=== PATIENT | male | born 1980 | race Two or more races ===

== ENCOUNTER 2016-12-11 13:45 | Inpatient (IN) | payer OTHER ==
[2016-12-11 14:11] VITALS: BMI 25.4
--- NOTE | 2016-12-11 15:00 | HP ---
COWS - Scale Resting Pulse: 0= ND 80 or Below Sweatin=Flushed/Facial Moisture Restless Observation: 3= Extraneous Movement Pupil Size: 1= Pupils >than Normal Bone or Joint Aches: 2= Severe Diffuse Aches Runny Nose/ Eye Tearin= Nasal Congestion GI Upset > 30mins: 2= Nausea/Diarrhea Tremor Observation: 2= Slight Tremor Visible Yawning Observation: 1= 1-2x During Session Anxiety or Irritability: 2=Irritable/Anxious Goose Flesh Skin: 0=Smooth Skin COWS Score: 16 CIWA Score - CIWA Score Nausea/Vomitin Muscle Tremors: 3 Anxiety: 3 Agitation: 3 Paroxysmal Sweats: 3 Orientation: 0-Oriented Tacttile Disturbances: 3-Moderate Itch/Numb/Burn Auditory Disturbances: 0-None Visual Disturbances: 0-None Headache: 0-None Present CIWA-Ar Total Score: 18 Admission ROS BHS - HPI Chief Complaint: I need to stop using drugs and alcohol - i need help. Allergies/Adverse Reactions: Allergies Allergy/AdvReac Type Severity Reaction Status Date / Time No Known Allergies Allergy Verified 02/19/13 14:04 History of Present Illness: 36 y/o m pt with h/o heroin and alcohol dep seeking detox. Exam Limitations: No Limitations - Ebola screening Have you been sick,other than usual withdrawal symptoms: No - Review of Systems Constitutional: Malaise, Night Sweats, Changes in sleep EENT: reports: Blurred Vision, Tearing, Nose Congestion, Dental Problems Respiratory: reports: No Symptoms reported Cardiac: reports: No Symptoms Reported GI: reports: Diarrhea, Abdominal cramping : reports: No Symptoms Reported Musculoskeletal: reports: Joint Pain, Muscle Pain Integumentary: reports: Erythema (rt arm) Neuro: reports: Headache Endocrine: reports: No Symptoms Reported Hematology: reports: No Symptoms Reported Psychiatric: reports: Depressed Other Systems: Reviewed and Negative Patient History - Patient Medical History Hx Anemia: No Hx Asthma: No Hx Chronic Obstructive Pulmonary Disease (COPD): No Hx Cancer: No Hx Cardiac Disorders: No Hx Congestive Heart Failure: No Hx Hypertension: No Hx Hypercholesterolemia: No Hx Pacemaker: No HX Cerebrovascular Accident: No Hx Seizures: No Hx Dementia: No Hx Diabetes: No Hx Gastrointestinal Disorders: No Hx Liver Disease: No Hx Genitourinary Disorders: No Hx Sexually Transmitted Disorders: No Hx Renal Disease (ESRD): No Hx Thyroid Disease: No Hx Human Immunodeficiency Virus (HIV): No (negative 1 yr ago) Hx Hepatitis C: Yes Hx Depression: Yes Hx Suicide Attempt: No Hx Bipolar Disorder: No Hx Schizophrenia: No - Patient Surgical History Past Surgical History: No Hx Neurologic Surgery: No Hx Cataract Extraction: No Hx Cardiac Surgery: No Hx Lung Surgery: No Hx Breast Surgery: No Hx Breast Biopsy: No Hx Abdominal Surgery: No Hx Appendectomy: No Hx Cholecystectomy: No Hx Genitourinary Surgery: No Hx Section: No Hx Orthopedic Surgery: No Anesthesia Reaction: No - PPD History Date: 02/21/15 PPD to be Administered?: Yes - Reproductive History Patient is a Female of Child Bearing Age (11 -55 yrs old): No - Smoking Cessation Smoking history: Current every day smoker Have you smoked in the past 12 months: Yes Aproximately how many cigarettes per day: 20 Cigars Per Day: 0 Hx Chewing Tobacco Use: No Initiated information on smoking cessation: Yes 'Breaking Loose' booklet given: 12/11/16 - Substance & Tx. History Hx Alcohol Use: Yes Hx Substance Use: Yes Substance Use Type: Alcohol, Heroin Hx Substance Use Treatment: Yes - Substances Abused Alcohol Route: Oral Frequency: Daily Amount used: henessey 1pt/d Age of first use: 15 Date of Last Use: 12/10/16 Heroin Route: Injection Frequency: Daily Amount used: 10 bags/d Age of first use: 26 Date of Last Use: 12/10/16 Cocaine Route: Inhalation Frequency: Daily Amount used: $20. Age of first use: 26 Date of Last Use: 12/10/16 Family Disease History - Family Disease History Family History: Denies Admission Physical Exam [facility] - Vital Signs Vital Signs: Vital Signs - 24 hr 12/11/16 14:08 Temperature 95.9 F L Pulse Rate 68 Respiratory 18 Rate Blood Pressure 128/74 36 y/o m pt wn/wd appearing uncomfortable , restless , but cooperating with exam. - Physical General Appearance: Yes: Disheveled HEENTM: Yes: EOMI, Hearing grossly Normal, Normocephalic, Normal Voice, TERE Respiratory: Yes: Wheezing (bree) Neck: Yes: Supple, Trachea in good position Breast: Yes: Within Normal Limits Cardiology: Yes: Regular Rhythm, Regular Rate, S1, S2 Abdominal: Yes: Non Tender, Flat, Soft, Increased Bowel Sounds Genitourinary: Yes: Within Normal Limits Back: Yes: Decreased Range of Motion Musculoskeletal: Yes: Joint Stiffness, Muscle Pain, Other (left arm decrease rom on extension at elbow , + erythema medial at bicep.) Extremities: Yes: Tremors, Other (no palpable axillary nodes) Neurological: Yes: sap bpc developer II-XII NML intact, Fully Oriented, Alert, Motor Strength 5/5, Normal Response Integumentary: Yes: Moist, Track Mckeon (bree forearms) Lymphatic: Yes: Within Normal Limits - Diagnostic (1) Alcohol dependence Current Visit: Yes Status: Chronic (2) Cocaine dependence Current Visit: Yes Status: Chronic (3) Opioid dependence Current Visit: Yes Status: Chronic (4) depression Current Visit: Yes Status: Chronic (5) Nicotine dependence Current Visit: Yes Status: Chronic Qualifiers: Nicotine product type: cigarettes Substance use status: uncomplicated Qualified Code(s): F17.210 - Nicotine dependence, cigarettes, uncomplicated (6) Cellulitis of left arm Current Visit: Yes Status: Acute Cleared for Admission [facility] - Detox or Rehab [facility] Level of Care: Medically Managed Detox Regimen/Protocol: Methadone/Librium [facility] Breath Alcohol Content Breath Alcohol Content: 0 Urine Drug Screen - Results Drug Screen Negative: No Urine Drug Screen Results: THC-Marijuana, LAZARO-Cocaine, OPI-Opiates
[2016-12-11] MEDS ORDERED: P-EPHED 60MG/TRIPROLIDI 2.5MG TABLET PO PRN (15:15)
[2016-12-11] MEDS ORDERED: MENTHOL/PHENOL 1 EACH UD MM PRN (15:15)
[2016-12-11] MEDS ORDERED: NICOTINE POLACRILEX 4 MG GUM BC PRN (15:15)
[2016-12-11] MEDS ORDERED: LOPERAMIDE HCL 2 MG CAPSULE PO PRN (15:15)
[2016-12-11] MEDS ORDERED: MAGNESIUM CITRATE 300 ML BOTTLE PO PRN (15:15)
[2016-12-11] MEDS ORDERED: MAGNESIUM HYDROX 2400MG/30ML ORAL SUSPENSION 30 ML CUP PO PRN (15:15)
[2016-12-11] MEDS ORDERED: MAG HYDROX/AL HYDROX/SIMETH 30 ML UNIT-DOSE CUP PO PRN (15:15)
[2016-12-11] MEDS ORDERED: IBUPROFEN 400 MG TABLET (FP) PO PRN (15:15)
[2016-12-11] MEDS ORDERED: guaiFENesin/D-METHORPHAN HB 10 ML UNIT-DOSE CUPS PO PRN (15:15)
[2016-12-11] MEDS ORDERED: chlordiazePOXIDE HCL 25 MG CAPSULE PO PRN (15:15)
[2016-12-11] MEDS ORDERED: diphenhydrAMINE HCL 50 MG CAPSULE PO PRN (15:15)
[2016-12-11] MEDS ORDERED: ACETAMINOPHEN 325 MG TABLET (FP) PO PRN (15:15)
[2016-12-11] MEDS ORDERED: hydrOXYzine PAMOATE 25 MG CAPSULE (FP) PO PRN (15:15)
[2016-12-11] MEDS ORDERED: SULFAMETHOXAZOLE/TRIMETHOPRIM 800MG/160MG D.S. TABLET PO ONE (17:30)
[2016-12-11] MEDS ORDERED: METHADONE HCL 10 MG TABLET (FOR DETOX USE ONLY) PO ONE ×2 (17:30→23:00)
[2016-12-11] MEDS: chlordiazePOXIDE HCL 25 MG CAPSULE PO SCH ×2 (18:07→22:44)
[2016-12-11] MEDS: SULFAMETHOXAZOLE/TRIMETHOPRIM 800MG/160MG D.S. TABLET PO SCH (22:44)
[2016-12-11] MEDS: THIAMINE HCL 100 MG TABLET (FP) PO SCH (22:44)
[2016-12-12] MEDS: chlordiazePOXIDE HCL 25 MG CAPSULE PO SCH ×4 (06:30→22:14)
--- NOTE | 2016-12-12 08:34 | CONSULT ---
[facility] Psychiatric Consult - Data Date of interview: 12/12/16 Admission source: [facility] Identifying data: This is 36 years old male with no psychiatric hospitalization history ihtoxicated with [id number], Cocaine, Opioids and Nicotine Substance Abuse History: Smoking history: Current every day smoker. Have you smoked in the past 12 months: Yes. Aproximately how many cigarettes per day: 20. Cigars Per Day: 0. Hx Chewing Tobacco Use: No. Initiated information on smoking cessation: Yes. 'Breaking Loose' booklet given: 12/11/16. - Substance & Tx. History. Hx Alcohol Use: Yes. Hx Substance Use: Yes. Substance Use Type : Alcohol, Heroin. Hx Substance Use Treatment: Yes. - Substances Abused. Alcohol. Route: Oral. Frequency: Daily. Amount used: henessey 1pt/d. Age of first use: 15. Date of Last Use: 12/10/16. Heroin. Route: Injection. Frequency: Daily. Amount used: 10 bags/d. Age of first use: 26. Date of Last Use: 12/10/16. Cocaine. Route: Inhalation. Frequency: Daily. Amount used : $20. Age of first use: 26. Date of Last Use: 12/10/16 Medical History: History of Cellulitis, Weight loss history Psychiatric History: Patient reports history of depression, reports taking prior to admission: Trazodone 100mg po qhs. Wellbutrin 100mg poqd Physical/Sexual Abuse/Trauma History: Denies Additional Comment: Trazodone 100mg po qhs. Wellbutrin 100mg poqd Mental Status Exam - Mental Status Exam Alert and Oriented to: Person Cognitive Function: Fair Patient Appearance: Unkempt Mood: Sad Affect: Flat Patient Behavior: Sedated Speech Pattern: Delayed Voice Loudness: Mildly Soft/Quiet Thought Process: Goal Oriented Thought Disorder: Being Controlled Hallucinations: Denies Suicidal Ideation: Denies Homicidal Ideation: Denies Insight/Judgement: Fair Sleep: Difficulty falling asleep Appetite: Weight loss Muscle strength/Tone: Mild Hypotonicity Gait/Station: Shuffling Additional Comments: Trazodone 100mg po qhs. Wellbutrin 100mg poqd Psychiatric Findings - Problem List ([place] 1, 2,3) (1) Alcohol dependence Current Visit: Yes Status: Chronic (2) Cocaine dependence Current Visit: Yes Status: Chronic (3) Nicotine dependence Current Visit: Yes Status: Chronic Qualifiers: Nicotine product type: cigarettes Substance use status: uncomplicated Qualified Code(s): F17.210 - Nicotine dependence, cigarettes, uncomplicated (4) Opioid dependence Current Visit: Yes Status: Chronic (5) Drug-induced mood disorder Current Visit: Yes Status: Acute - Initial Treatment Plan Initial Treatment Plan: Trazodone 100mg po qhs. Wellbutrin 100mg poqd
[2016-12-12] MEDS ORDERED: METHADONE HCL 10 MG TABLET (FOR DETOX USE ONLY) PO SCH (10:00)
--- NOTE | 2016-12-12 10:38 | PN ---
[facility] CIWA - CIWA Score Nausea/Vomitin Muscle Tremors: 2 Anxiety: 3 Agitation: 3 Paroxysmal Sweats: 3 Orientation: 0-Oriented Tacttile Disturbances: 2-Mild Itch/Numbness/Burn Auditory Disturbances: 0-None Visual Disturbances: 0-None Headache: 0-None Present CIWA-Ar Total Score: 15 BHS COWS - Scale Resting Pulse: 1= NV 81-100 Sweatin=Flushed/Facial Moisture Restless Observation: 1= Difficult to Sit Still Pupil Size: 1= Pupils >than Normal Bone or Joint Aches: 2= Severe Diffuse Aches Runny Nose/ Eye Tearin= Nasal Congestion GI Upset > 30mins: 1= Stomach Cramp Tremor Observation of Outstretched Hands: 1= Tremor [place], Not Seen Yawning Observation: 0= None Anxiety or Irritability: 2=Irritable/Anxious Goose Flesh Skin: 0=Smooth Skin COWS Score: 12 BHS Progress Note (SOAP) Subjective: interrupted sleep, sweats , irritable -states left arm infection better , not as tense as yesterday , no fever Objective: 12/12/16 10:35 Vital Signs Temperature 99.0 F 12/12/16 06:52 Pulse Rate 83 12/12/16 06:52 Respiratory Rate 18 12/12/16 06:52 Blood Pressure 114/64 12/12/16 06:52 O2 Sat by Pulse Oximetry (%) pending labs pt aox3 in nad lying in bed left arm better rom .erythema Assessment: 12/12/16 10:36 withdrawal sx's cellulitis left arm Plan: cont detox increase fluids cont bactrim ds bid warm compresses motrin prn
[2016-12-12 10:45] LABS: MCH 28.7 pg (25.7-33.7); MCHC 33.5 g/dl (32.0-35.9); MEAN CELL VOLUME 85.9 fl (80-96); MEAN PLT VOLUME 8.8 fl (7.5-11.1); PLATELET COUNT 301 K/MM3 (134-434); RDW 12.4 % (11.9-15.9); WHITE BLOOD COUNT 15.3 K/mm3 (4.0-10.0)
[2016-12-12 10:56] LABS: ALBUMIN 3.8 g/dl (3.4-5.0); ANION GAP 11 (8-16); CALCIUM 9.1 mg/dL (8.5-10.1); CO2 25 mmol/L (21-32); GLUCOSE,RANDOM 91 mg/dL (74-106)
[2016-12-12 11:01] LABS: ALK PHOS 75 U/L (45-117); COCKROFT - GAULT 133.76; CREATININE 0.9 mg/dL (0.7-1.3); SGOT/AST 33 U/L (15-37); SGPT/ALT 65 U/L (12-78); TOT PROT 7.7 g/dl (6.4-8.2)
[2016-12-12] MEDS: PRENATAL VITAMINS W/ FOLIC ACID TABLET (FP) PO SCH (11:16)
[2016-12-12] MEDS: SULFAMETHOXAZOLE/TRIMETHOPRIM 800MG/160MG D.S. TABLET PO SCH ×2 (11:16→22:13)
[2016-12-12] MEDS: NICOTINE 21 MG/24 HOURS TOPICAL PATCH TD SCH (11:16)
[2016-12-12] MEDS: buPROPion HCL 100 MG TABLET PO SCH (11:17)
--- NOTE | 2016-12-12 12:33 | EKG ---
Test Reason : Blood Pressure : / mmHG Vent. Rate : 052 BPM Atrial Rate : 052 BPM P-R Int : 160 ms QRS Dur : 098 ms QT Int : 398 ms P-R-T Axes : 039 083 051 degrees QTc Int : 370 ms SINUS BRADYCARDIA OTHERWISE NORMAL ECG NO PREVIOUS ECGS AVAILABLE Confirmed by NELLIE DELONG MD ([id number]) on 12/12/2016 12:32:24 PM Referred By: Confirmed By:NELLIE DELONG MD
[2016-12-12] MEDS: traZODone HCL 100 MG TABLET (FP) PO SCH (22:14)
[2016-12-12] MEDS: THIAMINE HCL 100 MG TABLET (FP) PO SCH (22:14)
[2016-12-13] MEDS: chlordiazePOXIDE HCL 25 MG CAPSULE PO SCH ×2 (08:22→10:32)
[2016-12-13] MEDS: PRENATAL VITAMINS W/ FOLIC ACID TABLET (FP) PO SCH (10:31)
[2016-12-13] MEDS: SULFAMETHOXAZOLE/TRIMETHOPRIM 800MG/160MG D.S. TABLET PO SCH ×2 (10:32→22:55)
[2016-12-13] MEDS: METHADONE HCL 5 MG TABLET (FOR DETOX USE ONLY) PO SCH (10:32)
[2016-12-13] MEDS: buPROPion HCL 100 MG TABLET PO SCH (10:32)
[2016-12-13] MEDS: NICOTINE 21 MG/24 HOURS TOPICAL PATCH TD SCH (10:33)
--- NOTE | 2016-12-13 12:37 | PN ---
[facility] CIWA - CIWA Score Nausea/Vomitin-Mild Nausea/No Vomiting Muscle Tremors: 2 Anxiety: 4-Mod. Anxious/Guarded Agitation: 2 Paroxysmal Sweats: 3 Orientation: 1-Uncertain about Date Tacttile Disturbances: 0-None Auditory Disturbances: 2-Mild Harshness/Frighten Visual Disturbances: 3-Moderate Sensitivity Headache: 0-None Present CIWA-Ar Total Score: 18 BHS COWS - Scale Resting Pulse: 2= AR 101-120 Sweatin= Chills/Flushing Restless Observation: 0= Sits Still Pupil Size: 0= Normal to Room Light Bone or Joint Aches: 2= Severe Diffuse Aches Runny Nose/ Eye Tearin= Runny Nose/Eyes GI Upset > 30mins: 0= None Tremor Observation of Outstretched Hands: 2= Slight Tremor Visible Yawning Observation: 2= >3x During Session Anxiety or Irritability: 2=Irritable/Anxious Goose Flesh Skin: 3=Piloerection COWS Score: 16 S Progress Note (SOAP) Subjective: Interrupted sleep, Body Aches, Fatigue, Sweating. Objective: PT. A & O X 2 (DISORIENTED ABOUT DAY / DATE). 12/13/16 12:36 Vital Signs Temperature 98.2 F 12/13/16 11:51 Pulse Rate 104 H 12/13/16 11:51 Respiratory Rate 18 12/13/16 11:51 Blood Pressure 136/61 12/13/16 11:51 O2 Sat by Pulse Oximetry (%) Laboratory Last Values WBC 15.3 K/mm3 (4.0-10.0) H D 12/12/16 07:00 RBC 5.31 M/mm3 (4.00-5.60) 12/12/16 07:00 Hgb 15.2 GM/dL (11.7-16.9) D 12/12/16 07:00 Hct 45.6 % (35.4-49) D 12/12/16 07:00 MCV 85.9 fl (80-96) 12/12/16 07:00 MCHC 33.5 g/dl (32.0-35.9) 12/12/16 07:00 RDW 12.4 % (11.9-15.9) D 12/12/16 07:00 Plt Count 301 K/MM3 (134-434) 12/12/16 07:00 MPV 8.8 fl (7.5-11.1) D 12/12/16 07:00 Sodium 138 mmol/L (136-145) 12/12/16 07:00 Potassium 4.2 mmol/L (3.5-5.1) 12/12/16 07:00 Chloride 102 mmol/L (98-107) 12/12/16 07:00 Carbon Dioxide 25 mmol/L (21-32) 12/12/16 07:00 Anion Gap 11 (8-16) 12/12/16 07:00 BUN 9 mg/dL (7-18) 12/12/16 07:00 Creatinine 0.9 mg/dL (0.7-1.3) 12/12/16 07:00 Creat Clearance w eGFR > 60 (>60) 12/12/16 07:00 Random Glucose 91 mg/dL (74-106) 12/12/16 07:00 Calcium 9.1 mg/dL (8.5-10.1) 12/12/16 07:00 Total Bilirubin 1.0 mg/dL (0.2-1.0) D 12/12/16 07:00 AST 33 U/L (15-37) 12/12/16 07:00 ALT 65 U/L (12-78) D 12/12/16 07:00 Alkaline Phosphatase 75 U/L (45-117) D 12/12/16 07:00 Total Protein 7.7 g/dl (6.4-8.2) D 12/12/16 07:00 Albumin 3.8 g/dl (3.4-5.0) 12/12/16 07:00 RPR Titer Nonreactive (NONREACTIVE) 12/12/16 07:00 LABS NOTED. Assessment: 12/13/16 12:37 WITHDRAWAL SYMPTOMS. Plan: CONTINUE DETOX. ADVISED PATIENT TO FOLLOW-UP WITH [facility] / REHAB MEDICAL PROVIDER AFTER DISCHARGE FROM DETOX FOR GENERAL MEDICAL ASSESSMENT AND FOR ABNORMAL ADMISSION LAB VALUES.
[2016-12-13] MEDS: chlordiazePOXIDE 5 MG CAPSULE PO SCH ×2 (18:21→23:28)
[2016-12-13] MEDS: THIAMINE HCL 100 MG TABLET (FP) PO SCH (22:55)
[2016-12-13] MEDS: traZODone HCL 100 MG TABLET (FP) PO SCH (22:55)
[2016-12-14] MEDS: chlordiazePOXIDE 5 MG CAPSULE PO SCH ×2 (07:56→10:16)
[2016-12-14] MEDS: buPROPion HCL 100 MG TABLET PO SCH (10:15)
[2016-12-14] MEDS: SULFAMETHOXAZOLE/TRIMETHOPRIM 800MG/160MG D.S. TABLET PO SCH ×2 (10:16→22:12)
[2016-12-14] MEDS: PRENATAL VITAMINS W/ FOLIC ACID TABLET (FP) PO SCH (10:16)
[2016-12-14] MEDS: METHADONE HCL 5 MG TABLET (FOR DETOX USE ONLY) PO SCH (10:16)
[2016-12-14] MEDS: NICOTINE 21 MG/24 HOURS TOPICAL PATCH TD SCH (10:18)
--- NOTE | 2016-12-14 17:10 | PN ---
S Progress Note (SOAP) Subjective: Diarrhea, Nasal Congestion, Tremors, Sweating, Body Aches, Interrupted sleep. Objective: PT. A & O X 3. 12/14/16 17:08 Vital Signs Temperature 98.8 F 12/14/16 14:30 Pulse Rate 94 H 12/14/16 14:30 Respiratory Rate 18 12/14/16 14:30 Blood Pressure 116/70 12/14/16 14:30 O2 Sat by Pulse Oximetry (%) Laboratory Last Values WBC 15.3 K/mm3 (4.0-10.0) H D 12/12/16 07:00 RBC 5.31 M/mm3 (4.00-5.60) 12/12/16 07:00 Hgb 15.2 GM/dL (11.7-16.9) D 12/12/16 07:00 Hct 45.6 % (35.4-49) D 12/12/16 07:00 MCV 85.9 fl (80-96) 12/12/16 07:00 MCHC 33.5 g/dl (32.0-35.9) 12/12/16 07:00 RDW 12.4 % (11.9-15.9) D 12/12/16 07:00 Plt Count 301 K/MM3 (134-434) 12/12/16 07:00 MPV 8.8 fl (7.5-11.1) D 12/12/16 07:00 Sodium 138 mmol/L (136-145) 12/12/16 07:00 Potassium 4.2 mmol/L (3.5-5.1) 12/12/16 07:00 Chloride 102 mmol/L (98-107) 12/12/16 07:00 Carbon Dioxide 25 mmol/L (21-32) 12/12/16 07:00 Anion Gap 11 (8-16) 12/12/16 07:00 BUN 9 mg/dL (7-18) 12/12/16 07:00 Creatinine 0.9 mg/dL (0.7-1.3) 12/12/16 07:00 Creat Clearance w eGFR > 60 (>60) 12/12/16 07:00 Random Glucose 91 mg/dL (74-106) 12/12/16 07:00 Calcium 9.1 mg/dL (8.5-10.1) 12/12/16 07:00 Total Bilirubin 1.0 mg/dL (0.2-1.0) D 12/12/16 07:00 AST 33 U/L (15-37) 12/12/16 07:00 ALT 65 U/L (12-78) D 12/12/16 07:00 Alkaline Phosphatase 75 U/L (45-117) D 12/12/16 07:00 Total Protein 7.7 g/dl (6.4-8.2) D 12/12/16 07:00 Albumin 3.8 g/dl (3.4-5.0) 12/12/16 07:00 RPR Titer Nonreactive (NONREACTIVE) 12/12/16 07:00 LABS NOTED. RESULT REPORT FOR CXR DONE ON 12/13/2016 PENDING. 12/14/16 17:10 Assessment: 12/14/16 17:09 WITHDRAWAL SYMPTOMS. Plan: CONTINUE DETOX. ADVISED PATIENT TO FOLLOW-UP WITH [facility] / REHAB MEDICAL PROVIDER AFTER DISCHARGE FROM DETOX FOR GENERAL MEDICAL ASSESSMENT AND FOR ABNORMAL ADMISSION LAB VALUES.
[2016-12-14] MEDS: chlordiazePOXIDE HCL 10 MG CAPSULE PO SCH ×2 (18:02→22:12)
[2016-12-14] MEDS: THIAMINE HCL 100 MG TABLET (FP) PO SCH (22:12)
[2016-12-14] MEDS: traZODone HCL 100 MG TABLET (FP) PO SCH (22:12)
[2016-12-15] MEDS: chlordiazePOXIDE HCL 10 MG CAPSULE PO SCH ×2 (08:13→11:06)
[2016-12-15] MEDS ORDERED: METHADONE HCL 10 MG TABLET (FOR DETOX USE ONLY) PO SCH (10:00)
[2016-12-15] MEDS: PRENATAL VITAMINS W/ FOLIC ACID TABLET (FP) PO SCH (11:06)
[2016-12-15] MEDS: NICOTINE 21 MG/24 HOURS TOPICAL PATCH TD SCH (11:07)
[2016-12-15] MEDS: SULFAMETHOXAZOLE/TRIMETHOPRIM 800MG/160MG D.S. TABLET PO SCH (11:07)
[2016-12-15] MEDS: buPROPion HCL 100 MG TABLET PO SCH (11:07)
[2016-12-15 11:20] VITALS: BP 110/65; PULSE 107; TEMP 98.1
--- NOTE | 2016-12-15 11:50 | PN ---
BHS Progress Note (SOAP) Subjective: Left arm is swollen,tender,hot and red.Pt. has been on bactrim ds since 12/11/16. Objective: 12/15/16 11:48 Vital Signs - 8 hr 12/15/16 12/15/16 06:00 10:00 Temperature 98.2 F 98.1 F Pulse Rate 90 107 H Respiratory 18 18 Rate Blood Pressure 91/57 110/65 Laboratory Last Values WBC 15.3 K/mm3 (4.0-10.0) H D 12/12/16 07:00 RBC 5.31 M/mm3 (4.00-5.60) 12/12/16 07:00 Hgb 15.2 GM/dL (11.7-16.9) D 12/12/16 07:00 Hct 45.6 % (35.4-49) D 12/12/16 07:00 MCV 85.9 fl (80-96) 12/12/16 07:00 MCHC 33.5 g/dl (32.0-35.9) 12/12/16 07:00 RDW 12.4 % (11.9-15.9) D 12/12/16 07:00 Plt Count 301 K/MM3 (134-434) 12/12/16 07:00 MPV 8.8 fl (7.5-11.1) D 12/12/16 07:00 Sodium 138 mmol/L (136-145) 12/12/16 07:00 Potassium 4.2 mmol/L (3.5-5.1) 12/12/16 07:00 Chloride 102 mmol/L (98-107) 12/12/16 07:00 Carbon Dioxide 25 mmol/L (21-32) 12/12/16 07:00 Anion Gap 11 (8-16) 12/12/16 07:00 BUN 9 mg/dL (7-18) 12/12/16 07:00 Creatinine 0.9 mg/dL (0.7-1.3) 12/12/16 07:00 Creat Clearance w eGFR > 60 (>60) 12/12/16 07:00 Random Glucose 91 mg/dL (74-106) 12/12/16 07:00 Calcium 9.1 mg/dL (8.5-10.1) 12/12/16 07:00 Total Bilirubin 1.0 mg/dL (0.2-1.0) D 12/12/16 07:00 AST 33 U/L (15-37) 12/12/16 07:00 ALT 65 U/L (12-78) D 12/12/16 07:00 Alkaline Phosphatase 75 U/L (45-117) D 12/12/16 07:00 Total Protein 7.7 g/dl (6.4-8.2) D 12/12/16 07:00 Albumin 3.8 g/dl (3.4-5.0) 12/12/16 07:00 RPR Titer Nonreactive (NONREACTIVE) 12/12/16 07:00 labs noted with leukocytosis Assessment: 12/15/16 11:50 Withdrawal sx. Cellulitis left arm Plan: Continue detox Transfer to ED for evaluation
--- NOTE | 2016-12-15 18:54 | DS ---
[facility] Detox Discharge Summary Admission Date: 12/11/16 Discharge Date: 12/15/16 - History Present History: Alcohol Dependence, Opioid Dependence Pertinent Past History: Denies - Physical Exam Results Vital Signs: Vital Signs Temperature 98.1 F 12/15/16 10:00 Pulse Rate 107 H 12/15/16 10:00 Respiratory Rate 18 12/15/16 10:00 Blood Pressure 110/65 12/15/16 10:00 O2 Sat by Pulse Oximetry (%) Pertinent Admission Physical Exam Findings: Withdrawal sx. Laboratory Last Values WBC 15.3 K/mm3 (4.0-10.0) H D 12/12/16 07:00 RBC 5.31 M/mm3 (4.00-5.60) 12/12/16 07:00 Hgb 15.2 GM/dL (11.7-16.9) D 12/12/16 07:00 Hct 45.6 % (35.4-49) D 12/12/16 07:00 MCV 85.9 fl (80-96) 12/12/16 07:00 MCHC 33.5 g/dl (32.0-35.9) 12/12/16 07:00 RDW 12.4 % (11.9-15.9) D 12/12/16 07:00 Plt Count 301 K/MM3 (134-434) 12/12/16 07:00 MPV 8.8 fl (7.5-11.1) D 12/12/16 07:00 Sodium 138 mmol/L (136-145) 12/12/16 07:00 Potassium 4.2 mmol/L (3.5-5.1) 12/12/16 07:00 Chloride 102 mmol/L (98-107) 12/12/16 07:00 Carbon Dioxide 25 mmol/L (21-32) 12/12/16 07:00 Anion Gap 11 (8-16) 12/12/16 07:00 BUN 9 mg/dL (7-18) 12/12/16 07:00 Creatinine 0.9 mg/dL (0.7-1.3) 12/12/16 07:00 Creat Clearance w eGFR > 60 (>60) 12/12/16 07:00 Random Glucose 91 mg/dL (74-106) 12/12/16 07:00 Calcium 9.1 mg/dL (8.5-10.1) 12/12/16 07:00 Total Bilirubin 1.0 mg/dL (0.2-1.0) D 12/12/16 07:00 AST 33 U/L (15-37) 12/12/16 07:00 ALT 65 U/L (12-78) D 12/12/16 07:00 Alkaline Phosphatase 75 U/L (45-117) D 12/12/16 07:00 Total Protein 7.7 g/dl (6.4-8.2) D 12/12/16 07:00 Albumin 3.8 g/dl (3.4-5.0) 12/12/16 07:00 RPR Titer Nonreactive (NONREACTIVE) 12/12/16 07:00 labs noted - Treatment Patient has Accepted a Rehab Referral to: Transferred to ED and admitted to med/ surg for cellulitis - Diagnosis (1) Cellulitis of left arm Current Visit: Yes Status: Acute (2) Opioid dependence with withdrawal Current Visit: Yes Status: Acute - AMA Did Patient Leave Against Medical Advice: No
[2016-12-16] MEDS ORDERED: METHADONE HCL 5 MG TABLET (FOR DETOX USE ONLY) PO SCH (06:00)
== END 2016-12-15 22:45 | disposition short-term general hospital (02) | DRG 773 ==
LOC: YASAS 13:45 → Y6N 17:01
PROVIDERS: ADMIT Internal Medicine Addiction Medicine; ATTEND Internal Medicine Addiction Medicine
PROC: HZ2ZZZZ Detoxification Services for Substance Abuse Treatment (ICD-10-PCS; principal; 2016-12-11)
DX: F11.23 Opioid dependence with withdrawal (principal); F10.230 Alcohol dependence with withdrawal, uncomplicated; F14.20 Cocaine dependence, uncomplicated; F17.210 Nicotine dependence, cigarettes, uncomplicated; F19.24 Other psychoactive substance dependence with psychoactive substance-induced mood disorder; F32.9 Major depressive disorder, single episode, unspecified; D72.829 Elevated white blood cell count, unspecified; L03.114 Cellulitis of left upper limb
CPT/HCPCS: 36415; 71010-TC; 80053; 85027; 86593; 93005; 93010

== ENCOUNTER 2016-12-15 12:58 | Inpatient (IN) | payer OTHER ==
[~2016-12-15 12:58] MED LIST: METHADONE HCL 5 MG TABLET PO ONE
--- NOTE | 2016-12-15 13:17 | PDOC ---
History of Present Illness - History of Present Illness Initial Comments: 12/15/16 14:41 The patient is a 36 year old male, with a significant past medical history of heroin and cocaine abuse/Detox (2012), who presents to the emergency department sent by Dr. Mares via ems from [facility] for increased pain and redness to an abscess on his left antecubital region today. As per Dr. Mares, the patient was admitted to [facility] for heroin detox and was started on bactrim 4 days ago for suspected cellulitis to his left upper extremity, however, the physician noticed an increase in erythema to the surrounding area today. The patient admits to injecting ""speedballs"" (a mix of heroin and cocaine), last injected 4 days ago, and he states he ""thinks he might have missed."" He denies chest pain, shortness of breath, headache and dizziness. He denies fever, chills, nausea, vomit, diarrhea and constipation. He denies dysuria, frequency, urgency and hematuria. Allergies: NKDA <Indy Castellanos - Last Filed: 12/15/16 16:04> <Daquan Mijares - Last Filed: 12/16/16 09:19> - General Chief Complaint: Wound Stated Complaint: ARM PAIN Time Seen by Provider: 12/15/16 13:16 Past History <Indy Castellanos - Last Filed: 12/15/16 16:04> - Past Medical History Anemia: No Asthma: No Cancer: No Cardiac Disorders: No CVA: No COPD: No CHF: No Dementia: No Diabetes: No GI Disorders: No Disorders: No HTN: No Hypercholesterolemia: No Kidney Stones: No Liver Disease: No Suicide Attempt (Hx): No Seizures: No Thyroid Disease: No - Surgical History Abdominal Surgery: No Appendectomy: No Cardiac Surgery: No Cholecystectomy: No Lung Surgery: No Neurologic Surgery: No Orthopedic Surgery: No - Reproductive History Testicular Surgery: No - Psycho/Social/Smoking Cessation Hx Anxiety: No Suicidal Ideation: No Smoking History: Never smoked Have you smoked in the past 12 months: No Number of Cigarettes Smoked Daily: 20 Cigars Per Day: 0 Information on smoking cessation initiated: No 'Breaking Loose' booklet given: 12/11/16 Hx Alcohol Use: No Drug/Substance Use Hx: No Substance Use Type: Alcohol, Heroin Hx Substance Use Treatment: Yes <Daquan Mijares - Last Filed: 12/16/16 09:19> - Past Medical History Allergies/Adverse Reactions: Allergies Allergy/AdvReac Type Severity Reaction Status Date / Time No Known Allergies Allergy Verified 12/15/16 13:13 Review of Systems - Review of Systems Able to Perform ROS?: Yes Comments:: 12/15/16 14:41 CONSTITUTIONAL: No reported: Fever, Chills, Diaphoresis, Generalized Weakness, Malaise, Loss of Appetite HEENT: No reported: Rhinorrhea, Nasal Congestion, Throat Pain, Throat Swelling, Difficulty Swallowing, Mouth Swelling, Ear Pain, Eye Pain, Visual Changes CARDIOVASCULAR: No reported: Chest Pain, Syncope, Palpitations, Irregular Heart Rate, Lightheadedness, Peripheral Edema RESPIRATORY: No reported: Cough, Shortness of Breath, SOB with Exertion, Orthopnea, Wheezing , Stridor, Hemoptysis GASTROINTESTINAL: No reported: Abdominal pain, Abdominal Distension, Nausea, Vomiting, Diarrhea, Constipation, Melena, Hematochezia GENITOURINARY: No reported: Dysuria, Frequency, Urgency, Hesitancy, Flank Pain, Genital Pain MUSCULOSKELETAL: No reported: Myalgia, Arthralgia, Joint Swelling, Back pain, Neck Pain SKIN: (+) increased redness and pain to abscess on left upper extremity. No reported: Rash, Itching, Pallor HEMEATOLOGIC/IMMUNOLOGIC: No reported: Easy Bleeding, Easy Bruising, Lymphadenopathy, Frequent infections ENDOCRINE: No reported: Unexplained Weight Gain, Unexplained Weight Loss, Heat Intolerance , Cold Intolerance NEUROLOGIC: No reported: Headache, Focal Weakness, Paresthesias, Vertigo, Lightheadedness, Unsteady Gait, Seizure, Mental Status Changes, Incontinence PSYCHIATRIC: No reported: Anxiety, Depression <Indy Castellanos - Last Filed: 12/15/16 16:04> *Physical Exam - Vital Signs Last Vital Signs Temp Pulse Resp BP Pulse Ox 98.5 F 85 19 152/139 95 12/15/16 13:13 12/15/16 13:13 12/15/16 13:13 12/15/16 13:13 12/15/16 13:13 - Physical Exam Comments: 12/15/16 14:41 GENERAL: The patient is awake, alert, and fully oriented, Nontoxic - in no acute distress. HEAD: Normocephalic, atraumatic. EYES: extraocular movements intact, sclera anicteric, conjunctiva clear. ENT: Normal voice, Moist mucous membranes. NECK: Normal range of motion, supple LUNGS: Breath sounds equal, clear to auscultation bilaterally. No wheezes, no rhonchi, no rales. HEART: Regular rate and rhythm, without murmur, rub or gallop. ABDOMEN: Soft, nontender, normoactive bowel sounds. No guarding, no rebound.No CVA tenderness EXTREMITIES: Normal range of motion, no edema. No clubbing or cyanosis. No cords, erythema, or tenderness. NEUROLOGICAL: No facial assymetry, Normal speech, PSYCH: Normal mood, normal affect. SKIN: (+) large area of erythema, warmth/tenderness/induration on LUE <Indy Castellanos - Last Filed: 12/15/16 16:04> - Vital Signs Last Vital Signs Temp Pulse Resp BP Pulse Ox 98.5 F 85 19 152/139 95 12/15/16 13:13 12/15/16 13:13 12/15/16 13:13 12/15/16 13:13 12/15/16 13:13 <Daquan Mijares - Last Filed: 12/16/16 09:19> Heart Score/ECG Review - ECG Impressions Comment:: 12/15/16 15:30 Twelve-lead EKG was performed and reviewed by me. There is normal sinus rhythm with a normal rate. rate of 78 The axis is normal. The intervals are normal. There is normal R wave progression There are no ST or T wave abnormalities. <Daquan Mijares - Last Filed: 12/16/16 09:19> ED Treatment Course - LABORATORY CBC & Chemistry Diagram: 12/15/16 13:50 12/15/16 13:50 - ADDITIONAL ORDERS Additional order review: Laboratory Results 12/15/16 13:50 Sodium 135 L Potassium 4.7 Chloride 102 Carbon Dioxide 24 Anion Gap 9 BUN 9 Creatinine 1.0 Creat Clearance w eGFR > 60 Random Glucose 117 H D Calcium 8.6 Total Bilirubin 0.3 D AST 21 D ALT 36 D Alkaline Phosphatase 69 Total Protein 6.9 Albumin 3.1 L 12/15/16 13:50 RBC 4.71 MCV 84.5 MCHC 34.2 RDW 12.3 MPV 8.3 Neutrophils % 63.9 Lymphocytes % 22.7 Monocytes % 9.1 Eosinophils % 3.7 Basophils % 0.6 - Medications Given in the ED: ED Medications Discontinued Medications Generic Name Dose Route Start Last Admin Trade Name Avi PRN Reason Stop Dose Admin Ketorolac Tromethamine 30 mg 12/15/16 13:51 12/15/16 13:53 Toradol Injection - IVPUSH 12/15/16 13:52 30 mg ONCE ONE Administration <Indy Castellanos - Last Filed: 12/15/16 16:04> - LABORATORY CBC & Chemistry Diagram: 12/16/16 06:00 12/16/16 06:00 <Daquan Mijares - Last Filed: 12/16/16 09:19> Medical Decision Making - Medical Decision Making 12/15/16 13:40 36y M hx of polysubstance abuse presents with worsening redness/pain to his LUE , no fever/chills suspect possible cellulitis vs abscess vs dvt will obtain xray to r/o fb will obtain US to r/o dvt and abcess will likely need IVABX due to failure of oral meds 12/15/16 14:00 on bedside us of the LUE, there apperas to be a fluid collection in the LUE that tracts proximally will obtain US to further evaluate. 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 ortiz stable for med surg will admit for further mangaement of absess/cellulitis - as fluid colelction seems intramuscular will defer to surgery for further management Case discussed in detail with admitting physician including history, physical exam and ancillary studies. Admitting physician has assumed care for the patient, will follow all pending diagnostics and will complete the evaluation and treatment. <Daquan Mijares - Last Filed: 12/16/16 09:19> *DC/Admit/Observation/Transfer - Attestations Scribe Attestion: 12/15/16 14:41 Documentation prepared by Indy Castellanos, acting as medical genetics director for Daquan Mijares MD <Indy Castellanos - Last Filed: 12/15/16 16:04> - Discharge Dispostion Admit: Yes <Daquan Mijares - Last Filed: 12/16/16 09:19> Diagnosis at time of Disposition: Cellulitis of left arm, Abscess, Opioid dependence - Discharge Dispostion Condition at time of disposition: Stable
[2016-12-15] MEDS ORDERED: KETOROLAC TROMETHAMINE 30 MG/1 ML VIAL IVPUSH ONE (13:51)
[2016-12-15] MEDS ORDERED: KETOROLAC TROMETHAMINE 30 MG/1 ML VIAL ONE (13:52)
[2016-12-15 13:54] LABS: BASOPHIL 0.6 % (0-2.0); EOSINOPHIL 3.7 % (0-4.5); MCH 28.9 pg (25.7-33.7); MCHC 34.2 g/dl (32.0-35.9); MEAN CELL VOLUME 84.5 fl (80-96); MEAN PLT VOLUME 8.3 fl (7.5-11.1); NEUTROPHILS 63.9 % (42.8-82.8); PLATELET COUNT 299 K/MM3 (134-434); RDW 12.3 % (11.9-15.9); WHITE BLOOD COUNT 14.7 K/mm3 (4.0-10.0)
[2016-12-15 14:18] LABS: ALBUMIN 3.1 g/dl (3.4-5.0); ALK PHOS 69 U/L (45-117); ANION GAP 9 (8-16); BILIRUBIN,TOTAL 0.3 mg/dL (0.2-1.0); CALCIUM 8.6 mg/dL (8.5-10.1); CO2 24 mmol/L (21-32); COCKROFT - GAULT 120.39; GLUCOSE,RANDOM 117 mg/dL (74-106); SGOT/AST 21 U/L (15-37); SGPT/ALT 36 U/L (12-78); TOT PROT 6.9 g/dl (6.4-8.2)
[2016-12-15] MEDS ORDERED: VANCOMYCIN 1,000 MG in DEXTROSE 5%-WATER - 250 ML IVPB ONE (15:32)
[2016-12-15] MEDS ORDERED: VANCOMYCIN 1 GRAM (PRE-DOCKED) 250 ML IVPB ONE (15:36)
[2016-12-15] MEDS ORDERED: ONDANSETRON 4 MG/2 ML VIAL IVPB PRN (15:50)
[2016-12-15] MEDS ORDERED: CEFTRIAXONE 1 GM in DEXTROSE 5%-WATER - 50 ML IVPB SCH (16:00)
--- NOTE | 2016-12-15 16:03 | HP ---
CHIEF COMPLAINT: Arm redness PCP: Patient is unable to recall name HISTORY OF PRESENT ILLNESS: This is a 36 year old male with a history of IVDU ( heroin + cocaine, last use Friday) sent from the [facility] detox facility for evaluation of left arm cellulitis. He reports injecting in the left upper arm on Friday, and began developing redness and pain on Friday. He denies fevers/chill or any other systemic symptoms. He was started on Bactrim DS on Friday (12/11) without improvement. He reports an abscess in the left wrist which required I&D in the past, but is unable to recall exactly when. ER course was notable for: (1) WBC 14.7 (2) Afebrile (3) U/s: Left upper forearm nonspecific multi-loculated fluid collection medially; no DVT Recent Travel: None PAST MEDICAL HISTORY: None PAST SURGICAL HISTORY: Right inguinal hernia repair, I&D of left wrist abscess Social History: Lives with mother, not currently employed Smokin pack daily Alcohol: 1pt cognac daily Drugs: Heroin, cocaine (injection) No Known Allergies Allergy (Verified 12/15/16 13:13) HOME MEDICATIONS: Home Medications Medication Instructions Recorded Methadone [Dolophine -] 20 mg PO DAILY 12/15/16 REVIEW OF SYSTEMS CONSTITUTIONAL: Absent: fever, chills, diaphoresis, generalized weakness, malaise, loss of appetite, weight change HEENT: Absent: rhinorrhea, nasal congestion, throat pain, throat swelling, difficulty swallowing, mouth swelling, ear pain, eye pain, visual changes CARDIOVASCULAR: Absent: chest pain, syncope, palpitations, irregular heart rate, lightheadedness , peripheral edema RESPIRATORY: Absent: cough, shortness of breath, dyspnea with exertion, orthopnea, wheezing, stridor, hemoptysis GASTROINTESTINAL: Absent: abdominal pain, abdominal distension, nausea, vomiting, diarrhea, constipation, melena, hematochezia GENITOURINARY: Absent: dysuria, frequency, urgency, hesitancy, hematuria, flank pain, genital pain MUSCULOSKELETAL: Absent: myalgia, arthralgia, joint swelling, back pain, neck pain SKIN: See HPI HEMATOLOGIC/IMMUNOLOGIC: Absent: easy bleeding, easy bruising, lymphadenopathy, frequent infections ENDOCRINE: Absent: unexplained weight gain, unexplained weight loss, heat intolerance, cold intolerance NEUROLOGIC: Absent: headache, focal weakness or paresthesias, dizziness, unsteady gait, seizure, mental status changes, bladder or bowel incontinence PSYCHIATRIC: Absent: anxiety, depression, suicidal or homicidal ideation, hallucinations. PHYSICAL EXAMINATION Vital Signs - 24 hr 12/15/16 12/15/16 13:13 15:43 Temperature 98.5 F Pulse Rate 85 Pulse Rate [ 80 Apical] Respiratory 19 18 Rate Blood Pressure 152/139 Blood Pressure 102/53 [Right Arm] O2 Sat by Pulse 95 95 Oximetry (%) GENERAL: Awake, alert, and fully oriented, in no acute distress. HEAD: Normal with no signs of trauma. EYES: Pupils equal, round and reactive to light, extraocular movements intact, sclera anicteric, conjunctiva clear. No lid lag. EARS, NOSE, THROAT: Ears normal, nares patent, oropharynx clear without exudates. Moist mucous membranes. NECK: Normal range of motion, supple without lymphadenopathy, JVD, or masses. LUNGS: Breath sounds equal, clear to auscultation bilaterally. No wheezes, and no crackles. No accessory muscle use. HEART: Regular rate and rhythm, normal S1 and S2 without murmur, rub or gallop. ABDOMEN: Soft, nontender, not distended, normoactive bowel sounds, no guarding, no rebound, no masses. No hepatomegaly or splenomegaly. MUSCULOSKELETAL: Normal range of motion at all joints. No bony deformities or tenderness. No CVA tenderness. UPPER EXTREMITIES: 2+ pulses, warm, well-perfused. No cyanosis. No clubbing. Erythema, warmth, induration, and tenderness over bicep - affected area outlined. LOWER EXTREMITIES: 2+ pulses, warm, well-perfused. No calf tenderness. No peripheral edema. NEUROLOGICAL: Cranial nerves II-XII intact. Normal speech. Normal gait. PSYCHIATRIC: Cooperative. Good eye contact. Appropriate mood and affect. SKIN: Warm, dry, normal turgor. Laboratory Results - last 24 hr 12/15/16 12/15/16 13:50 13:50 WBC 14.7 H RBC 4.71 Hgb 13.6 D Hct 39.8 MCV 84.5 MCHC 34.2 RDW 12.3 Plt Count 299 MPV 8.3 Neutrophils % 63.9 Lymphocytes % 22.7 Monocytes % 9.1 Eosinophils % 3.7 Basophils % 0.6 Sodium 135 L Potassium 4.7 Chloride 102 Carbon Dioxide 24 Anion Gap 9 BUN 9 Creatinine 1.0 Creat Clearance w eGFR > 60 Random Glucose 117 H D Calcium 8.6 Total Bilirubin 0.3 D AST 21 D ALT 36 D Alkaline Phosphatase 69 Total Protein 6.9 Albumin 3.1 L ASSESSMENT/PLAN: 36 year old male with recent history of IVDU presenting with cellulitis and possible abscess. Problem List - Problem (1) Cellulitis of left arm Assessment/Plan: -With possible abscess identified on ultrasound -Vancomycin/Cetriaxone, ID consultation -Surgery evaluation -Monitor fever/WBC -Hydration -Tylenol prn fever Code(s): L03.114 - CELLULITIS OF LEFT UPPER LIMB (2) Nicotine dependence Assessment/Plan: -Nicoderm patch Code(s): F17.200 - NICOTINE DEPENDENCE, UNSPECIFIED, UNCOMPLICATED Qualifiers : Nicotine product type: cigarettes Substance use status: uncomplicated Qualified Code(s): F17.210 - Nicotine dependence, cigarettes, uncomplicated (3) Opioid dependence Assessment/Plan: -Continue Methadone maintenance Code(s): F11.20 - OPIOID DEPENDENCE, UNCOMPLICATED (4) DVT prophylaxis Assessment/Plan: -Lovenox -Early ambulation Code(s): SQQ8602 - Visit type - Emergency Visit Emergency Visit: Yes ED Registration Date: 12/15/16 Care time: The patient presented to the Emergency Department on the above date and was hospitalized for further evaluation of their emergent condition. - New Patient This patient is new to me today: Yes Date on this admission: 12/15/16 - Critical Care Critical Care patient: No
[2016-12-15 18:02] VITALS: BMI 25.5
[2016-12-15] MEDS: SODIUM CHLORIDE 1,000 ML IV SCH (18:28)
[2016-12-15] MEDS: cefTRIAXone 1 GM/50 ML BAG (PRE-DOCKED) IVPB SCH (18:29)
[2016-12-15] MEDS: NICOTINE 21 MG/24 HOURS TOPICAL PATCH TD SCH (18:31)
--- NOTE | 2016-12-15 19:03 | PN ---
S Progress Note (SOAP) Subjective: Pt. was sent from [facility] because of cellulitis left arm. Pt. has been on Bactrim ds since 12/11 without significant improvement. Methadone taper is at 10mg when I sent him to ED,his last dose is methadone 5mg on 12/16/16. Objective: 12/15/16 19:00 Vital Signs - 8 hr 12/15/16 12/15/16 12/15/16 13:13 15:43 17:48 Temperature 98.5 F Pulse Rate 85 82 Pulse Rate [ 80 Apical] Respiratory 19 18 20 Rate Blood Pressure 152/139 95/58 Blood Pressure 102/53 [Right Arm] O2 Sat by Pulse 95 95 Oximetry (%) 12/15/16 18:06 Temperature Pulse Rate Pulse Rate [ Apical] Respiratory Rate Blood Pressure Blood Pressure [Right Arm] O2 Sat by Pulse 95 Oximetry (%) Laboratory Results - last 24 hr 12/15/16 12/15/16 13:50 13:50 WBC 14.7 H RBC 4.71 Hgb 13.6 D Hct 39.8 MCV 84.5 MCHC 34.2 RDW 12.3 Plt Count 299 MPV 8.3 Neutrophils % 63.9 Lymphocytes % 22.7 Monocytes % 9.1 Eosinophils % 3.7 Basophils % 0.6 Sodium 135 L Potassium 4.7 Chloride 102 Carbon Dioxide 24 Anion Gap 9 BUN 9 Creatinine 1.0 Creat Clearance w eGFR > 60 Random Glucose 117 H D Calcium 8.6 Total Bilirubin 0.3 D AST 21 D ALT 36 D Alkaline Phosphatase 69 Total Protein 6.9 Albumin 3.1 L leukocytosis noted Assessment: 12/15/16 19:01 Opioid dependence with withdrawal Cellulitis/Abscess left arm Plan: Methadone 5mg on 12/16/16 to complete detox IV antibiotics
[2016-12-15] MEDS ORDERED: buPROPion HCL 100 MG TABLET PO SCH (22:00)
[2016-12-15] MEDS: traZODone HCL 50 MG TABLET (FP) PO SCH (22:14)
[2016-12-15] MEDS: DOCUSATE SODIUM 100 MG CAPSULE (FP) PO SCH (22:15)
[2016-12-16] MEDS: ACETAMINOPHEN 325 MG TABLET (FP) PO PRN ×4 (00:47→19:54)
[2016-12-16] MEDS: diphenhydrAMINE HCL 25 MG CAPSULE (FP) PO PRN ×2 (00:58→22:25)
[2016-12-16] MEDS ORDERED: VANCOMYCIN 1,250 MG in DEXTROSE 5%-WATER - 250 ML IVPB ONE (05:00)
[2016-12-16] MEDS: DOCUSATE SODIUM 100 MG CAPSULE (FP) PO SCH ×3 (05:40→22:24)
[2016-12-16 07:46] LABS: BASOPHIL 0.6 % (0-2.0); EOSINOPHIL 4.8 % (0-4.5); MCH 28.9 pg (25.7-33.7); MCHC 33.8 g/dl (32.0-35.9); MEAN CELL VOLUME 85.6 fl (80-96); MEAN PLT VOLUME 8.9 fl (7.5-11.1); NEUTROPHILS 57.1 % (42.8-82.8); PLATELET COUNT 274 K/MM3 (134-434); RDW 12.2 % (11.9-15.9); WHITE BLOOD COUNT 12.9 K/mm3 (4.0-10.0)
[2016-12-16] MEDS: SODIUM CHLORIDE 1,000 ML IV SCH ×2 (08:41→18:40)
[2016-12-16 08:58] LABS: ALBUMIN 2.9 g/dl (3.4-5.0); ALK PHOS 66 U/L (45-117); ANION GAP 11 (8-16); BILIRUBIN,TOTAL 0.3 mg/dL (0.2-1.0); CALCIUM 8.4 mg/dL (8.5-10.1); CO2 25 mmol/L (21-32); COCKROFT - GAULT 121.05; GLUCOSE,RANDOM 93 mg/dL (74-106); SGOT/AST 20 U/L (15-37); SGPT/ALT 32 U/L (12-78); TOT PROT 6.4 g/dl (6.4-8.2)
[2016-12-16] MEDS ORDERED: METHADONE HCL 5 MG TABLET PO ONE (10:00)
[2016-12-16] MEDS ORDERED: METHADONE HCL 10 MG TABLET PO SCH (10:00)
[2016-12-16] MEDS: cefTRIAXone 1 GM/50 ML BAG (PRE-DOCKED) IVPB SCH (10:15)
[2016-12-16] MEDS: ENOXAPARIN NA (PORCINE) 40 MG/0.4 ML DISP.SYRIN SQ SCH (10:15)
[2016-12-16] MEDS: NICOTINE 21 MG/24 HOURS TOPICAL PATCH TD SCH (10:15)
--- NOTE | 2016-12-16 10:20 | CONSULT ---
Consult Consult Specialty:: surgery Reason for Consultation:: LUE abscess - History of Present Illness Chief Complaint: L upper arm pain History of Present Illness: pt is a 36M with pain x 5 days in L bicep. hx IVDA. feels a little better since arriving here. - History Source History Provided By: Patient - Alcohol/Substance Use Hx Alcohol Use: No - Smoking History Smoking history: Never smoked Have you smoked in the past 12 months: No Aproximately how many cigarettes per day: 20 Home Medications - Allergies Allergies/Adverse Reactions: Allergies Allergy/AdvReac Type Severity Reaction Status Date / Time No Known Allergies Allergy Verified 12/15/16 13:13 Family Disease History - Family Disease History Family History: Unremarkable Review of Systems - Review of Systems Constitutional: denies: Chills, Fever Eyes: denies: Blind Spots, Blurred Vision HENT: denies: Difficult Swallowing, Ear Discharge Neck: denies: Decreased ROM, Lumps Cardiovascular: denies: Chest Pain, Edema Respiratory: denies: Cough, Exercise Intolerance Gastrointestinal: denies: Abdominal Pain, Bloating Genitourinary: denies: Burning, Discharge Breasts: denies: Pain, Skin Changes Musculoskeletal: reports: Extremity Pain. denies: Back Pain, Crepitus Integumentary: denies: Blister, Bruising Neurological: denies: Change in LOC, Change in Speech Endocrine: denies: Excessive Sweating, Flushing Hematology/Lymphatic: denies: Easily Bruised, Excessive Bleeding Psychiatric: denies: Altered Sleep Pattern, Anxiety Physical Exam Vital Signs: Vital Signs Temperature 98.7 F 12/16/16 06:00 Pulse Rate 72 12/16/16 06:00 Respiratory Rate 20 12/16/16 06:00 Blood Pressure 100/51 12/16/16 06:00 O2 Sat by Pulse Oximetry (%) 97 12/15/16 21:00 Constitutional: Yes: No Distress, Calm Eyes: Yes: Conjunctiva Clear, EOM Intact HENT: Yes: Atraumatic, Normocephalic Neck: Yes: Supple, Trachea Midline Cardiovascular: Yes: Regular Rate and Rhythm Respiratory: Yes: Regular, CTA Bilaterally Gastrointestinal: Yes: Soft. No: Distention, Tenderness ...Rectal Exam: Yes: Deferred Renal/: No: CVA Tenderness - Left, CVA Tenderness - Right Breast(s): No: Nipple Inversion, Skin Changes Musculoskeletal: Yes: Other (L bicep tender) Extremities: Yes: Other (L bicep with induration and tenderness and blanching erythema. no fluctuance.) Integumentary: Yes: Erythema. No: Rash Neurological: Yes: Alert, Oriented Psychiatric: Yes: Alert, Oriented Labs: CBC, BMP 12/16/16 06:00 12/16/16 06:00 Imaging - Results Ultrasound: Report Reviewed Problem List - Problems (1) Abscess Assessment/Plan: patient with LUE abscess (deep) offered pt I&D under anesthesia given depth. recommended we do it tomorrow because he ate regular food today. he states that since he feels better, he wants to try to do without I&D and just on IV Abx alone cont IV abx for now as per pt wishes. if he worsens will offer surgery again. Code(s): L02.91 - CUTANEOUS ABSCESS, UNSPECIFIED (2) Cellulitis of left arm Code(s): L03.114 - CELLULITIS OF LEFT UPPER LIMB (3) Drug-induced mood disorder Code(s): F19.94 - OTH PSYCHOACTIVE SUBSTANCE USE, UNSP W MOOD DISORDER (4) Opioid dependence with withdrawal Code(s): F11.23 - OPIOID DEPENDENCE WITH WITHDRAWAL (5) Alcohol dependence Code(s): F10.20 - ALCOHOL DEPENDENCE, UNCOMPLICATED
--- NOTE | 2016-12-16 11:08 | EKG ---
Test Reason : Blood Pressure : / mmHG Vent. Rate : 078 BPM Atrial Rate : 078 BPM P-R Int : 166 ms QRS Dur : 090 ms QT Int : 362 ms P-R-T Axes : 059 069 054 degrees QTc Int : 412 ms SINUS RHYTHM WITH FUSION COMPLEXES POSSIBLE LEFT ATRIAL ENLARGEMENT BORDERLINE ECG WHEN COMPARED WITH ECG OF 11-DEC-2016 17:13, VENT. RATE HAS INCREASED BY 26 BPM Confirmed by ISAMAR POLLOCK MD ([id number]) on 12/16/2016 11:08:24 AM Referred By: Confirmed By:ISAMAR POLLOCK MD
--- NOTE | 2016-12-16 11:23 | PN ---
Progress Note (short form) - Note Progress Note: ID consult dictated 36 year man active injection drug use with abscess left upper arm seen by surgery- f/u cultures empiric vanco/zosyn history hep c requests hiv testing
--- NOTE | 2016-12-16 12:34 | CONS ---
DATE OF CONSULTATION: REQUESTING PHYSICIAN: Karina Evans MD HISTORY: This is a 36-year-old male who has a [id number] of injection drug use. He uses heroin and cocaine as well. As well he has a history of untreated hepatitis C. He reports on Friday was when he last injected in his left antecubital area. After that when he came on Friday he noted he had swelling of the left upper arm, which persisted and was erythematous and quite painful. He was given Bactrim at detoxification. The arm did not improve, and he was sent to the emergency room yesterday. He reports having had fevers and chills during rehabilitation. He last injected on Friday heroin and cocaine. He participates in a needle exchange and has clean needles at home. PAST MEDICAL HISTORY: Notable for hepatitis C. He has a history of depression. He was last HIV tested a year ago and negative. Requesting repeat HIV testing. PAST SURGICAL HISTORY: He has never had any surgery. SOCIAL HISTORY: He lives with his mother. He is a current every day smoker. He uses alcohol and heroin. He drinks Saba 1 pint a day. He injuries heroin as well as cocaine. FAMILY HISTORY: Unremarkable. REVIEW OF SYSTEMS: He reports his room is feeling a little bit better. He has better range of motion, and he is more comfortable. He reports less erythema. He received ceftriaxone and vancomycin in the emergency room. PHYSICAL EXAMINATION: General: He is a well-appearing young man in no acute distress. Vital Signs: T-max 100.7, current temperature 98.7, pulse 72, blood pressure 100/51, respiratory rate 20. HEENT: He is normocephalic. His eyes are anicteric. He has no conjunctival hemorrhages. He has no thrush. Neck: Supple. Lungs: Clear to auscultation. Heart: Regular rate and rhythm. Abdomen: Soft and nontender. Extremities: Notable for he has diffuse swelling of his left upper arm. He has an area marked that apparently was red that appears to be fading. It is still quite tender to touch. He has no axillary adenopathy. He has a good pulse in his wrist, and he has full range of motion of his fingers and forearm. LABORATORY DATA: His white count on admission was 15.3 on the . Today is 12.9. Hemoglobin 13.2, platelets 274, BUN 11, creatinine 1. His RPR is negative. Blood cultures are pending. He has no clot in his arm. His duplex was negative. He did have an ultrasound that shows a nonspecific collection that appears to be intramuscular. Chest x-ray is negative. ASSESSMENT: 1. In summary, this is a 36-year-old injection user with what appears to be a left upper extremity abscess. It appears quite deep. He has been seen by Surgery who has offered him incision and drainage currently electing to continue on antibiotics. Would treat him empirically with vancomycin and Zosyn. Follow up culture results. He is thinking about surgery at this time and wishes to wait to see if his arm improves. 2. Injection drug use. 3. History of alcohol dependence. 4. History of hepatitis C. The patient is requesting HIV testing, which we will order as well. SANDRA GONZALEZ M.D. [id number]
[2016-12-16] MEDS: PIPERACILLIN/TAZOB 4.5 GM/100 ML PRE-DOCKED IVPB SCH ×2 (13:13→18:39)
[2016-12-16] MEDS: buPROPion HCL 100 MG TABLET PO SCH (13:28)
[2016-12-16] MEDS: VANCOMYCIN 1,250 MG in DEXTROSE 5%-WATER - 250 ML IVPB SCH (18:40)
--- NOTE | 2016-12-16 18:48 | PN ---
Physical Exam: SUBJECTIVE: Patient seen and examined. He says he feels better. He cannot keep his arm straight, the site is rodding machine tender, he denies fever, chills. Events: - No fever today OBJECTIVE: Vital Signs Period Temp Pulse Resp BP Sys/Woods Pulse Ox Last 24 Hr 98 F-100.7 F 72-96 18-20 100-120/46-66 97 Pe Neuro: alert, awake, cn 2-12 intact Pulm: clear, no sob, wheezing CV: s1 s2 rrr Abd: s nt nd +bs Ext: LUE bicep erythema, indurated, warm, swelling unable to extend arm, pain with extension past 90 degrees, no le edema Laboratory Results - last 24 hr 12/16/16 12/16/16 06:00 06:00 WBC 12.9 H RBC 4.58 Hgb 13.2 Hct 39.2 MCV 85.6 MCHC 33.8 RDW 12.2 Plt Count 274 MPV 8.9 Neutrophils % 57.1 Lymphocytes % 27.5 D Monocytes % 10.0 Eosinophils % 4.8 H Basophils % 0.6 Sodium 140 Potassium 4.7 Chloride 104 Carbon Dioxide 25 Anion Gap 11 BUN 11 D Creatinine 1.0 Creat Clearance w eGFR > 60 Random Glucose 93 D Calcium 8.4 L Total Bilirubin 0.3 AST 20 ALT 32 Alkaline Phosphatase 66 Total Protein 6.4 Albumin 2.9 L Active Medications Generic Name Dose Route Start Last Admin Trade Name Freq PRN Reason Stop Dose Admin Acetaminophen 650 mg 12/15/16 15:50 12/16/16 13:13 Tylenol - PO 650 mg Q4H PRN Administration FEVER OR PAIN Bupropion HCl 100 mg 12/16/16 10:00 12/16/16 13:28 Wellbutrin - PO 100 mg DAILY DEL Administration Diphenhydramine HCl 25 mg 12/15/16 15:50 12/16/16 00:58 Benadryl - PO 25 mg HS PRN Administration INSOMNIA Docusate Sodium 100 mg 12/15/16 22:00 12/16/16 13:13 Colace - PO 100 mg TID DEL Administration Enoxaparin Sodium 40 mg 12/16/16 10:00 12/16/16 10:15 Lovenox - SQ 40 mg DAILY DEL Administration Sodium Chloride 1,000 mls @ 83 mls/hr 12/15/16 16:00 12/16/16 18:40 Normal Saline - IV 12/17/16 04:03 Not Given ASDIR DEL Vancomycin HCl 1,250 mg/ 250 mls @ 166.667 mls/hr 12/16/16 18:00 12/16/16 18:40 Dextrose IVPB 166.667 mls/hr BID@0600,1800 DEL Administration Protocol Nicotine 21 mg 12/15/16 16:45 12/16/16 10:15 Nicoderm Patch - TD 21 mg DAILY DEL Administration Ondansetron HCl 4 mg 12/15/16 15:50 Zofran Injection IVPB Q6H PRN NAUSEA Piperacillin Sod/Tazobactam Sod 4.5 gm 12/16/16 11:30 12/16/16 18:39 Zosyn 4.5gm Ivpb (Pre-Docked) IVPB 4.5 gm Q8H-IV DEL Administration Trazodone HCl 100 mg 12/15/16 22:00 12/15/16 22:14 Desyrel - PO 100 mg HS DEL Administration Microbiology 12/15/16 13:50 Blood Culture - Preliminary Blood - Peripheral Venous NO GROWTH OBTAINED AFTER 24 HOURS, INCUBATION TO CONTINUE FOR 4 DAYS. 12/15/16 13:50 Blood Culture - Preliminary Blood - Peripheral Venous NO GROWTH OBTAINED AFTER 24 HOURS, INCUBATION TO CONTINUE FOR 4 DAYS. Assessment: 36 year old male with recent history of IVDU presenting with cellulitis and possible abscess. Plan: 1. Cellulitis of left arm - Deep LUE abscess - Vancomycin BID (day 2 ) - Zosyn (day 1) - IVF to stop after 2 bags - Pt defers surgery at this time, wants to try conservative mgmt, he is considering I&D though 2. Nicotine dependence - Nicoderm patch 3. Opioid dependence -Continue Methadone maintenance 4. Depression - Wellbutrin daily 5. DVT prophylaxis - Lovenox - Early ambulation Visit type - Emergency Visit Emergency Visit: Yes ED Registration Date: 12/15/16 Care time: The patient presented to the Emergency Department on the above date and was hospitalized for further evaluation of their emergent condition. - New Patient This patient is new to me today: Yes Date on this admission: 12/16/16 - Critical Care Critical Care patient: No
[2016-12-16] MEDS ORDERED: KETOROLAC TROMETHAMINE 30 MG/1 ML VIAL IVPUSH PRN (20:08)
[2016-12-16] MEDS: traZODone HCL 50 MG TABLET (FP) PO SCH (22:25)
[2016-12-17] MEDS: PIPERACILLIN/TAZOB 4.5 GM/100 ML PRE-DOCKED IVPB SCH ×3 (01:56→20:23)
[2016-12-17] MEDS: VANCOMYCIN 1,250 MG in DEXTROSE 5%-WATER - 250 ML IVPB SCH ×2 (06:20→20:22)
[2016-12-17] MEDS: DOCUSATE SODIUM 100 MG CAPSULE (FP) PO SCH ×3 (06:20→21:20)
[2016-12-17 08:14] LABS: BASOPHIL 0.3 % (0-2.0); EOSINOPHIL 4.8 % (0-4.5); MCH 28.3 pg (25.7-33.7); MCHC 33.2 g/dl (32.0-35.9); MEAN CELL VOLUME 85.1 fl (80-96); MEAN PLT VOLUME 8.5 fl (7.5-11.1); NEUTROPHILS 60.1 % (42.8-82.8); PLATELET COUNT 317 K/MM3 (134-434); RDW 12.1 % (11.9-15.9); WHITE BLOOD COUNT 12.5 K/mm3 (4.0-10.0)
[2016-12-17 08:37] LABS: CALCIUM 8.8 mg/dL (8.5-10.1); COCKROFT - GAULT 134.5; CREATININE 0.9 mg/dL (0.7-1.3)
[2016-12-17 08:54] LABS: HIV 1 & 2 AB NEGATIVE; HIV 1 AGp24 NEGATIVE
[2016-12-17] MEDS: NICOTINE 21 MG/24 HOURS TOPICAL PATCH TD SCH (09:49)
[2016-12-17] MEDS: ENOXAPARIN NA (PORCINE) 40 MG/0.4 ML DISP.SYRIN SQ SCH (09:49)
[2016-12-17] MEDS: buPROPion HCL 100 MG TABLET PO SCH (09:49)
--- NOTE | 2016-12-17 13:57 | PN ---
Progress Note (short form) - Note Progress Note: still with arm pain Vital Signs Period Temp Pulse Resp BP Sys/Woods Pulse Ox Last 24 Hr 97.8 F-98.7 F 70-90 18-20 100-128/53-72 97 arm is unchanged with pain, induration and warmth +erythema CBC, BMP 12/17/16 06:58 12/17/16 06:58 Laboratory Tests 12/17/16 06:58 HIV 1&2 Antibody Screen Negative HIV P24 Antigen Negative Microbiology 12/15/16 13:50 Blood - Peripheral Venous Blood Culture - Preliminary NO GROWTH OBTAINED AFTER 48 HOURS, INCUBATION TO CONTINUE FOR 3 DAYS. 12/15/16 13:50 Blood - Peripheral Venous Blood Culture - Preliminary NO GROWTH OBTAINED AFTER 48 HOURS, INCUBATION TO CONTINUE FOR 3 DAYS. a/p abscess left upper arm continue vancomycin and zosyn for operative drainage today (had refused yesterday) active injection drug use hepatitis C Problem List - Problems (1) Abscess Code(s): L02.91 - CUTANEOUS ABSCESS, UNSPECIFIED (2) Substance abuse Code(s): F19.10 - OTHER PSYCHOACTIVE SUBSTANCE ABUSE, UNCOMPLICATED (3) Hepatitis C Code(s): B19.20 - UNSPECIFIED VIRAL HEPATITIS C WITHOUT HEPATIC COMA
[2016-12-17] MEDS: ACETAMINOPHEN 325 MG TABLET (FP) PO PRN (14:35)
--- NOTE | 2016-12-17 14:36 | PN ---
Physical Exam: SUBJECTIVE: Patient seen and examined. He is stressed out he wants to get into a rehab. He is amenable to incision and drainage today OBJECTIVE: Vital Signs Period Temp Pulse Resp BP Sys/Woods Pulse Ox Last 24 Hr 100 F 79 17 108/54 PE Neuro: alert, awake, cn 2-12 intact Pulm: CTAB CV: s1 s2 rrr no mrg Abd: s nt nd +bs Ext: LUE bicep induration, swelling and warmth increased, extension improved slightly past 90 degrees + tenderness CBCD WBC 12.5 K/mm3 (4.0-10.0) H 12/17/16 06:58 RBC 4.65 M/mm3 (4.00-5.60) 12/17/16 06:58 Hgb 13.1 GM/dL (11.7-16.9) 12/17/16 06:58 Hct 39.6 % (35.4-49) 12/17/16 06:58 MCV 85.1 fl (80-96) 12/17/16 06:58 MCHC 33.2 g/dl (32.0-35.9) 12/17/16 06:58 RDW 12.1 % (11.9-15.9) 12/17/16 06:58 Plt Count 317 K/MM3 (134-434) 12/17/16 06:58 MPV 8.5 fl (7.5-11.1) 12/17/16 06:58 CMP Sodium 138 mmol/L (136-145) 12/17/16 06:58 Potassium 4.4 mmol/L (3.5-5.1) 12/17/16 06:58 Chloride 102 mmol/L (98-107) 12/17/16 06:58 Carbon Dioxide 27 mmol/L (21-32) 12/17/16 06:58 Anion Gap 9 (8-16) 12/17/16 06:58 BUN 7 mg/dL (7-18) D 12/17/16 06:58 Creatinine 0.9 mg/dL (0.7-1.3) 12/17/16 06:58 Creat Clearance w eGFR > 60 (>60) 12/16/16 06:00 Calcium 8.8 mg/dL (8.5-10.1) 12/17/16 06:58 Total Bilirubin 0.3 mg/dL (0.2-1.0) 12/16/16 06:00 AST 20 U/L (15-37) 12/16/16 06:00 ALT 32 U/L (12-78) 12/16/16 06:00 Alkaline Phosphatase 66 U/L (45-117) 12/16/16 06:00 Total Protein 6.4 g/dl (6.4-8.2) 12/16/16 06:00 Albumin 2.9 g/dl (3.4-5.0) L 12/16/16 06:00 Active Medications Generic Name Dose Route Start Last Admin Trade Name Freq PRN Reason Stop Dose Admin Acetaminophen 650 mg 12/15/16 15:50 12/16/16 19:54 Tylenol - PO 650 mg Q4H PRN Administration FEVER OR PAIN Bupropion HCl 100 mg 12/16/16 10:00 12/17/16 09:49 Wellbutrin - PO 100 mg DAILY DEL Administration Diphenhydramine HCl 25 mg 12/15/16 15:50 12/16/16 22:25 Benadryl - PO 25 mg HS PRN Administration INSOMNIA Docusate Sodium 100 mg 12/15/16 22:00 12/17/16 06:20 Colace - PO 100 mg TID DEL Administration Enoxaparin Sodium 40 mg 12/16/16 10:00 12/17/16 09:49 Lovenox - SQ 40 mg DAILY DEL Administration Vancomycin HCl 1,250 mg/ 250 mls @ 166.667 mls/hr 12/16/16 18:00 12/17/16 06:20 Dextrose IVPB 166.667 mls/hr BID@0600,1800 DEL Administration Protocol Sodium Chloride 1,000 mls @ 100 mls/hr 12/17/16 14:45 Normal Saline - IV 12/18/16 00:44 ASDIR DEL Nicotine 21 mg 12/15/16 16:45 12/17/16 09:49 Nicoderm Patch - TD 21 mg DAILY DEL Administration Ondansetron HCl 4 mg 12/15/16 15:50 Zofran Injection IVPB Q6H PRN NAUSEA Piperacillin Sod/Tazobactam Sod 4.5 gm 12/16/16 11:30 12/17/16 09:49 Zosyn 4.5gm Ivpb (Pre-Docked) IVPB 4.5 gm Q8H-IV DEL Administration Trazodone HCl 100 mg 12/15/16 22:00 12/16/16 22:25 Desyrel - PO 100 mg HS DEL Administration Assessment: 36 year old male with recent history of IVDU admitted with cellulitis and possible abscess. Plan: 1. Cellulitis of left arm - For OR drainage for deep LUE abscess today - Vancomycin BID (day 3) - Zosyn (day 2) - D/w Surgery 2. Nicotine dependence - Nicoderm patch 3. Opioid dependence - Continue Methadone maintenance 4. Depression - Wellbutrin daily 5. DVT prophylaxis - Lovenox - Early ambulation Dispo: - Discussed with CM and social work, pt to call [facility] himself for rehab bed, paper work submitted by [facility] manager social work, his bed was given up today d/t hospital admission Visit type - Emergency Visit Emergency Visit: Yes ED Registration Date: 12/17/16 Care time: The patient presented to the Emergency Department on the above date and was hospitalized for further evaluation of their emergent condition. - New Patient This patient is new to me today: No - Critical Care Critical Care patient: No
[2016-12-17] MEDS ORDERED: SODIUM CHLORIDE 1,000 ML IV SCH ×2 (14:45→18:48)
[2016-12-17] MEDS ORDERED: ONDANSETRON 4 MG/2 ML VIAL IVPUSH PRN ×2 (17:25→18:48)
[2016-12-17] MEDS ORDERED: PROMETHAZINE HCL 25 MG/1 ML VIAL IVPUSH PRN ×2 (17:25→18:48)
[2016-12-17] MEDS ORDERED: LACTATED RINGERS SOLUTION 1,000 ML IV SCH ×2 (17:30→18:48)
[2016-12-17] MEDS ORDERED: MIDAZOLAM HCL 2 MG/2 ML SINGLE DOSE VIAL ONE (17:35)
[2016-12-17] MEDS ORDERED: PROPOFOL 20 ML ONE (17:35)
[2016-12-17] MEDS ORDERED: LIDOCAINE HCL/PF 2% SDV 5ML VIAL ONE (17:36)
[2016-12-17] MEDS ORDERED: KETOROLAC TROMETHAMINE 30 MG/1 ML VIAL ONE (17:42)
[2016-12-17] MEDS ORDERED: DEXAMETHASONE SOD PHOSPHATE 4 MG/1 ML VIAL ONE (17:42)
[2016-12-17] MEDS ORDERED: LIDOCAINE HCL 1%, 10 MG/ML (20ML VIAL) IJ ONE (17:47)
--- NOTE | 2016-12-17 18:07 | OP ---
Operative Note - Note: Operative Date: 12/17/16 Pre-Operative Diagnosis: L upper arm abscess deep Operation: Incision drainage of left arm abscess Findings: large amount of purulent material (>50cc) Implants: brandon drain x 2 Post-Operative Diagnosis: Same as Pre-op Surgeon: Keven Perez Anesthesia: Local, MAC Estimated Blood Loss (mls): 20 Operative Report Dictated: Yes
[2016-12-17] MEDS ORDERED: ONDANSETRON 4 MG/2 ML VIAL IVPB PRN (18:48)
[2016-12-17] MEDS ORDERED: ACETAMINOPHEN 325 MG TABLET (FP) PO PRN (18:48)
[2016-12-17] MEDS: traZODone HCL 50 MG TABLET (FP) PO SCH (21:20)
[2016-12-17] MEDS: KETOROLAC TROMETHAMINE 10 MG TABLET PO PRN (21:21)
[2016-12-17] MEDS: diphenhydrAMINE HCL 25 MG CAPSULE (FP) PO PRN (21:21)
[2016-12-18] MEDS: PIPERACILLIN/TAZOB 4.5 GM/100 ML PRE-DOCKED IVPB SCH ×3 (02:32→17:07)
[2016-12-18] MEDS ORDERED: PT OWN MED DRAWER 7, Y5N ONE ×2 (06:36→08:26)
[2016-12-18] MEDS: VANCOMYCIN 1,250 MG in DEXTROSE 5%-WATER - 250 ML IVPB SCH ×2 (06:44→18:03)
[2016-12-18] MEDS: DOCUSATE SODIUM 100 MG CAPSULE (FP) PO SCH ×3 (06:44→21:28)
[2016-12-18] MEDS: ENOXAPARIN NA (PORCINE) 40 MG/0.4 ML DISP.SYRIN SQ SCH (09:21)
[2016-12-18] MEDS: NICOTINE 21 MG/24 HOURS TOPICAL PATCH TD SCH (09:21)
[2016-12-18] MEDS: buPROPion HCL 100 MG TABLET PO SCH (09:22)
--- NOTE | 2016-12-18 11:49 | OP ---
DATE OF OPERATION: 12/17/2016 PREOPERATIVE DIAGNOSIS: Left upper arm abscess. POSTOPERATIVE DIAGNOSIS: Left upper arm abscess. PROCEDURE: Incision and drainage of a large upper arm abscess, which was deep in the intramuscular area. I left 2 Sammy drains. ANESTHESIA: MAC. SURGEON: Paula Perez MD FINDINGS: I estimated at least 50 mL of purulent material aspirated. OPERATIVE NOTE IN DETAIL: Patient was brought to the operating room after confirming name, date of , medical record number. He was placed in supine position with his left arm out. He was then given propofol, and he was then prepped and draped in the usual sterile fashion. He was already on antibiotics. SCDs for DVT prophylaxis. Once he was prepped and draped, a time-out was then performed. I injected 10 mL of 1% lidocaine antecubital fossa where it appeared as IV drug abuse site was. At the most fluctuant site, I then placed my 11 blade into the tissue and somewhat deeply, and then, finally, I found some small amount of purulent drainage. At this point, I then placed a Q-Tip into the abscess cavity and then a large amount of purulent drainage was then expressed. I then placed a Myra clamp through this abscess cavity, and it extended very proximally and medial as well as laterally. This large abscess fit approximately half my Myra clamp, and therefore, the decision was made to make 2 counter-incisions. Once I made these counter-incisions, I then continued to drain copious amounts of purulent fluid. After I irrigated and aspirated out fluid, I kept applying pressure to all of his arm, and once all the purulent drainage was finally expressed, I then secured [place] drains through each of the holes and looped them and then secured them with silk suture, and then placed dry gauze on top and wrapped it with acrylic dressing. All counts were correct. I then injected another 10 mL of 1% lidocaine prior to addressing the wound. PAULA PEERZ M.D. SHALONDA/[id number]
--- NOTE | 2016-12-18 12:22 | PN ---
Progress Note (short form) - Note Progress Note: s/p incision and drainage of the arm Vital Signs Period Temp Pulse Resp BP Sys/Woods Pulse Ox Last 24 Hr 97.9 F-100 F 66-88 16-20 100-119/54-86 96-99 cor-rrr lungs clear abd soft,nt ext bandage intact CBC, BMP 12/17/16 06:58 12/17/16 06:58 operative culture pending Laboratory Tests 12/17/16 06:58 HIV 1&2 Antibody Screen Negative HIV P24 Antigen Negative Microbiology 12/15/16 13:50 Blood - Peripheral Venous Blood Culture - Preliminary NO GROWTH OBTAINED AFTER 48 HOURS, INCUBATION TO CONTINUE FOR 3 DAYS. 12/15/16 13:50 Blood - Peripheral Venous Blood Culture - Preliminary NO GROWTH OBTAINED AFTER 48 HOURS, INCUBATION TO CONTINUE FOR 3 DAYS. a/p abscess left upper arm -pod #1 continue vancomycin and zosyn f/u cultures vancomycin trough ordered active injection drug use hepatitis C Problem List - Problems (1) Abscess Code(s): L02.91 - CUTANEOUS ABSCESS, UNSPECIFIED (2) Substance abuse Code(s): F19.10 - OTHER PSYCHOACTIVE SUBSTANCE ABUSE, UNCOMPLICATED (3) Hepatitis C Code(s): B19.20 - UNSPECIFIED VIRAL HEPATITIS C WITHOUT HEPATIC COMA
--- NOTE | 2016-12-18 14:38 | PN ---
Progress Note, Physician Chief Complaint: improved pain History of Present Illness: pain better. awaiting rehab. - Current Medication List Current Medications: Active Medications Acetaminophen (Tylenol -) 650 mg PO Q4H PRN PRN Reason: FEVER OR PAIN Bupropion HCl (Wellbutrin -) 100 mg PO DAILY [facility] Last Admin: 12/18/16 09:22 Dose: 100 mg Diphenhydramine HCl (Benadryl -) 25 mg PO HS PRN PRN Reason: INSOMNIA Last Admin: 12/17/16 21:21 Dose: 25 mg Docusate Sodium (Colace -) 100 mg PO TID [facility] Last Admin: 12/18/16 13:55 Dose: 100 mg Enoxaparin Sodium (Lovenox -) 40 mg SQ DAILY [facility] Last Admin: 12/18/16 09:21 Dose: 40 mg Fentanyl (Sublimaze Injection -) 50 mcg IVPUSH [id number] PRN PRN Reason: PAIN Stop: 12/20/16 17:26 Vancomycin HCl 1,250 mg/ (Dextrose) 250 mls @ 166.667 mls/hr IVPB BID@0600, 1800 [facility] PRN Reason: Protocol Last Admin: 12/18/16 06:44 Dose: 166.667 mls/hr Ketorolac Tromethamine (Toradol) 10 mg PO Q6HPO PRN PRN Reason: PAIN Stop: 12/22/16 00:00 Last Admin: 12/17/16 21:21 Dose: 10 mg Nicotine (Nicoderm Patch -) 21 mg TD DAILY [facility] Last Admin: 12/18/16 09:21 Dose: 21 mg Ondansetron HCl (Zofran Injection) 4 mg IVPB Q6H PRN PRN Reason: NAUSEA Piperacillin Sod/Tazobactam Sod (Zosyn 4.5gm Ivpb (Pre-Docked)) 4.5 gm IVPB Q8H -IV [facility] Last Admin: 12/18/16 10:59 Dose: 4.5 gm Trazodone HCl (Desyrel -) 100 mg PO HS [facility] Last Admin: 12/17/16 21:20 Dose: 100 mg - Objective Vital Signs: Vital Signs Temperature 97.8 F 12/18/16 14:00 Pulse Rate 70 12/18/16 14:00 Respiratory Rate 18 12/18/16 14:00 Blood Pressure 111/64 12/18/16 14:00 O2 Sat by Pulse Oximetry (%) 97 12/17/16 21:00 Constitutional: Yes: No Distress, Calm Extremities: Yes: Other (dressing removed. old serosanguinous drainage. still some induration and erythema. brandon drain x [address] Problem List - Problems (1) Abscess Code(s): L02.91 - CUTANEOUS ABSCESS, UNSPECIFIED (2) Cellulitis of left arm Code(s): L03.114 - CELLULITIS OF LEFT UPPER LIMB (3) Drug-induced mood disorder Code(s): F19.94 - OTH PSYCHOACTIVE SUBSTANCE USE, UNSP W MOOD DISORDER (4) Opioid dependence with withdrawal Code(s): F11.23 - OPIOID DEPENDENCE WITH WITHDRAWAL (5) Alcohol dependence Code(s): F10.20 - ALCOHOL DEPENDENCE, UNCOMPLICATED
--- NOTE | 2016-12-18 15:06 | PN ---
Progress Note (short form) - Note Progress Note: Anesthesia POD#1 S/P I & D Left arm under Mac Stable,mobile,no N/V. No complications to anesthesia seen. Liudmila Go MD.
--- NOTE | 2016-12-18 18:20 | PN ---
Physical Exam: SUBJECTIVE: Patient seen and examined. He feels better after his procedure. He is still pre occupied with where he will go for rehab OBJECTIVE: Vital Signs Period Temp Pulse Resp BP Sys/Woods Pulse Ox Last 24 Hr 97.7 F-98.4 F 66-86 16-20 100-119/56-86 96-99 PE Neuro: alert, awake, cn 2-12intact Pulm: CTAB CV: s1 s2 rrr no mrg Abd: s nt nd +bs Ext: LUE swelling- improved mild erythema, x2 brandon drains, able to full extend arm now Laboratory Results - last 24 hr 12/18/16 16:20 Vancomycin Trough 13.114 H Active Medications Generic Name Dose Route Start Last Admin Trade Name Freq PRN Reason Stop Dose Admin Acetaminophen 650 mg 12/17/16 18:48 Tylenol - PO Q4H PRN FEVER OR PAIN Bupropion HCl 100 mg 12/18/16 10:00 12/18/16 09:22 Wellbutrin - PO 100 mg DAILY DEL Administration Diphenhydramine HCl 25 mg 12/17/16 18:48 12/17/16 21:21 Benadryl - PO 25 mg HS PRN Administration INSOMNIA Docusate Sodium 100 mg 12/17/16 22:00 12/18/16 13:55 Colace - PO 100 mg TID DEL Administration Enoxaparin Sodium 40 mg 12/18/16 10:00 12/18/16 09:21 Lovenox - SQ 40 mg DAILY DEL Administration Fentanyl 50 mcg 12/17/16 18:48 Sublimaze Injection - IVPUSH 12/20/16 17:26 [id number] PRN PAIN Vancomycin HCl 1,250 mg/ 250 mls @ 166.667 mls/hr 12/18/16 06:00 12/18/16 18:03 Dextrose IVPB 166.667 mls/hr BID@0600,1800 DEL Administration Protocol Ketorolac Tromethamine 10 mg 12/17/16 18:08 12/17/16 21:21 Toradol PO 12/22/16 00:00 10 mg Q6HPO PRN Administration PAIN Nicotine 21 mg 12/18/16 10:00 12/18/16 09:21 Nicoderm Patch - TD 21 mg DAILY DEL Administration Ondansetron HCl 4 mg 12/17/16 18:48 Zofran Injection IVPB Q6H PRN NAUSEA Piperacillin Sod/Tazobactam Sod 4.5 gm 12/17/16 20:15 12/18/16 17:07 Zosyn 4.5gm Ivpb (Pre-Docked) IVPB 4.5 gm Q8H-IV DEL Administration Trazodone HCl 100 mg 12/17/16 22:00 12/17/16 21:20 Desyrel - PO 100 mg HS DEL Administration Assessment: 36 year old male with recent history of IVDU admitted with cellulitis and possible abscess. Plan: 1. Cellulitis of left arm with deep abscess d/t IVDU - s/p I&D 12/17 with purulent drainage - Vancomycin BID (day 4) - Zosyn (day 3) - Await final cultures - [place] drains can be clipped and pulled on day of discharge per surgery 2. Nicotine dependence - Nicoderm patch 3. Opioid dependence - Continue Methadone maintenance 4. Depression - Wellbutrin daily 5. DVT prophylaxis - Lovenox - Early ambulation Dispo: - Pt called [facility] for rehab bed, KARENA Mendez aware Visit type - Emergency Visit Emergency Visit: Yes ED Registration Date: 12/17/16 Care time: The patient presented to the Emergency Department on the above date and was hospitalized for further evaluation of their emergent condition. - New Patient This patient is new to me today: No - Critical Care Critical Care patient: No
[2016-12-18] MEDS: traZODone HCL 50 MG TABLET (FP) PO SCH (21:29)
[2016-12-19] MEDS: PIPERACILLIN/TAZOB 4.5 GM/100 ML PRE-DOCKED IVPB SCH ×2 (01:56→10:31)
[2016-12-19] MEDS: VANCOMYCIN 1,250 MG in DEXTROSE 5%-WATER - 250 ML IVPB SCH ×2 (05:41→17:42)
[2016-12-19] MEDS: DOCUSATE SODIUM 100 MG CAPSULE (FP) PO SCH ×3 (05:42→22:14)
[2016-12-19 08:43] LABS: BASOPHIL 0.6 % (0-2.0); EOSINOPHIL 1.8 % (0-4.5); MCH 28.2 pg (25.7-33.7); MCHC 33.1 g/dl (32.0-35.9); MEAN CELL VOLUME 85.2 fl (80-96); MEAN PLT VOLUME 8.4 fl (7.5-11.1); PLATELET COUNT 375 K/MM3 (134-434); RDW 12.2 % (11.9-15.9); WHITE BLOOD COUNT 10.1 K/mm3 (4.0-10.0)
[2016-12-19] MEDS ORDERED: PT OWN MED DRAWER 7, Y5N ONE (10:28)
[2016-12-19] MEDS: ENOXAPARIN NA (PORCINE) 40 MG/0.4 ML DISP.SYRIN SQ SCH (10:29)
[2016-12-19] MEDS: NICOTINE 21 MG/24 HOURS TOPICAL PATCH TD SCH (10:29)
[2016-12-19] MEDS: KETOROLAC TROMETHAMINE 10 MG TABLET PO PRN (10:30)
[2016-12-19] MEDS: buPROPion HCL 100 MG TABLET PO SCH (10:31)
--- NOTE | 2016-12-19 11:18 | PN ---
Progress Note (short form) - Note Progress Note: Subjective: The patient was seen and examined at the bedside, he denies any pain today. He states he is going to call [facility] today to check and see if they have a bed available for him. Current Medications Generic Name Dose Route Start Last Admin Trade Name Freq PRN Reason Stop Dose Admin Acetaminophen 650 mg 12/17/16 18:48 Tylenol - PO Q4H PRN FEVER OR PAIN Bupropion HCl 100 mg 12/18/16 10:00 12/19/16 10:31 Wellbutrin - PO 100 mg DAILY DEL Administration Diphenhydramine HCl 25 mg 12/17/16 18:48 12/17/16 21:21 Benadryl - PO 25 mg HS PRN Administration INSOMNIA Docusate Sodium 100 mg 12/17/16 22:00 12/19/16 05:42 Colace - PO 100 mg TID DEL Administration Enoxaparin Sodium 40 mg 12/18/16 10:00 12/19/16 10:29 Lovenox - SQ 40 mg DAILY DEL Administration Fentanyl 50 mcg 12/17/16 18:48 Sublimaze Injection - IVPUSH 12/20/16 17:26 [id number] PRN PAIN Vancomycin HCl 1,250 mg/ 250 mls @ 166.667 mls/hr 12/18/16 06:00 12/19/16 05:41 Dextrose IVPB 166.667 mls/hr BID@0600,1800 DEL Administration Protocol Ketorolac Tromethamine 10 mg 12/17/16 18:08 12/19/16 10:30 Toradol PO 12/22/16 00:00 10 mg Q6HPO PRN Administration PAIN Nicotine 21 mg 12/18/16 10:00 12/19/16 10:29 Nicoderm Patch - TD 21 mg DAILY DEL Administration Ondansetron HCl 4 mg 12/17/16 18:48 Zofran Injection IVPB Q6H PRN NAUSEA Piperacillin Sod/Tazobactam Sod 4.5 gm 12/17/16 20:15 12/19/16 10:31 Zosyn 4.5gm Ivpb (Pre-Docked) IVPB 4.5 gm Q8H-IV DEL Administration Trazodone HCl 100 mg 12/17/16 22:00 12/18/16 21:29 Desyrel - PO 100 mg HS DEL Administration Objective: Vital Signs Period Temp Pulse Resp BP Sys/Woods Pulse Ox Last 24 Hr 97.8 F-98.1 F 52-70 18-20 107-116/56-65 Physical Exam: General: NAD, A&Ox3 Lungs: CTA bilaterally Heart: RRR, S1S2 Abd: Soft, non-tender, non-distended. Normoactive bowel sounds Ext: LUE with dressing, c/d/i. 2+ distal pulses b/l equal Neuro: CN 2- 12 intact CBCD WBC 10.1 K/mm3 (4.0-10.0) H 12/19/16 06:10 RBC 4.73 M/mm3 (4.00-5.60) 12/19/16 06:10 Hgb 13.3 GM/dL (11.7-16.9) 12/19/16 06:10 Hct 40.3 % (35.4-49) 12/19/16 06:10 MCV 85.2 fl (80-96) 12/19/16 06:10 MCHC 33.1 g/dl (32.0-35.9) 12/19/16 06:10 RDW 12.2 % (11.9-15.9) 12/19/16 06:10 Plt Count 375 K/MM3 (134-434) 12/19/16 06:10 MPV 8.4 fl (7.5-11.1) 12/19/16 06:10 CMP Sodium 138 mmol/L (136-145) 12/17/16 06:58 Potassium 4.4 mmol/L (3.5-5.1) 12/17/16 06:58 Chloride 102 mmol/L (98-107) 12/17/16 06:58 Carbon Dioxide 27 mmol/L (21-32) 12/17/16 06:58 Anion Gap 9 (8-16) 12/17/16 06:58 BUN 7 mg/dL (7-18) D 12/17/16 06:58 Creatinine 0.9 mg/dL (0.7-1.3) 12/17/16 06:58 Creat Clearance w eGFR > 60 (>60) 12/16/16 06:00 Random Glucose 92 mg/dL (74-106) 12/17/16 06:58 Calcium 8.8 mg/dL (8.5-10.1) 12/17/16 06:58 Total Bilirubin 0.3 mg/dL (0.2-1.0) 12/16/16 06:00 AST 20 U/L (15-37) 12/16/16 06:00 ALT 32 U/L (12-78) 12/16/16 06:00 Alkaline Phosphatase 66 U/L (45-117) 12/16/16 06:00 Total Protein 6.4 g/dl (6.4-8.2) 12/16/16 06:00 Albumin 2.9 g/dl (3.4-5.0) L 12/16/16 06:00 Microbiology 12/15/16 13:50 Blood - Peripheral Venous Blood Culture - Preliminary NO GROWTH OBTAINED AFTER 72 HOURS, INCUBATION TO CONTINUE FOR 2 DAYS. 12/15/16 13:50 Blood - Peripheral Venous Blood Culture - Preliminary NO GROWTH OBTAINED AFTER 72 HOURS, INCUBATION TO CONTINUE FOR 2 DAYS. Assessment: This is a 36 year old male with PMHx of IVDU who presented to the ED from [facility] for LUE cellulitis. Plan: 1) ID: LUE cellulitis - S/p I&D on 12/17, [address], can remove upon discharge - Continue Vancomyin (12/15- ) - Continue Zosyn (12/15- ) - Awaiting abscess wound culture - Appreciate ID consult 2) Psych: Opioid dependence - Continue Methadone Nicotine dependence - Continue Nicoderm Depression - Continue Wellbutrin 3) F/E/N: - Regular diet - Monitor electrolytes 4) Prophylaxis: - OOB ambulating - Lovenox 40mg sq daily 5) Dispo: - Once wound culture results - Patient would like to go to [facility] rehab CODE STATUS: FULL CODE Visit type - Emergency Visit Emergency Visit: Yes ED Registration Date: 12/17/16 Care time: The patient presented to the Emergency Department on the above date and was hospitalized for further evaluation of their emergent condition. - New Patient This patient is new to me today: Yes Date on this admission: 12/19/16 - Critical Care Critical Care patient: No
--- NOTE | 2016-12-19 15:35 | PN ---
Progress Note (short form) - Note Progress Note: s/p incision and drainage of the arm pod #2 no complaints Vital Signs Period Temp Pulse Resp BP Sys/Woods Pulse Ox Last 24 Hr 97.3 F-98.1 F 52-90 17-20 107-116/55-65 cor-rrr lungs clear abd soft,nt ext no edema CBC, BMP 12/19/16 06:10 12/17/16 06:58 Microbiology 12/17/16 18:30 Abscess Wound Culture - Preliminary Presumptive Mrsa (Pbp2a Pos) 12/15/16 13:50 Blood - Peripheral Venous Blood Culture - Preliminary NO GROWTH OBTAINED AFTER 96 HOURS, INCUBATION TO CONTINUE FOR 1 DAYS. 12/15/16 13:50 Blood - Peripheral Venous Blood Culture - Preliminary NO GROWTH OBTAINED AFTER 96 HOURS, INCUBATION TO CONTINUE FOR 1 DAYS. Laboratory Tests 12/17/16 06:58 HIV 1&2 Antibody Screen Negative HIV P24 Antigen Negative Current Medications Acetaminophen (Tylenol -) 650 mg PO Q4H PRN PRN Reason: FEVER OR PAIN Bupropion HCl (Wellbutrin -) 100 mg PO DAILY [facility] Last Admin: 12/19/16 10:31 Dose: 100 mg Diphenhydramine HCl (Benadryl -) 25 mg PO HS PRN PRN Reason: INSOMNIA Last Admin: 12/17/16 21:21 Dose: 25 mg Docusate Sodium (Colace -) 100 mg PO TID [facility] Last Admin: 12/19/16 14:31 Dose: 100 mg Enoxaparin Sodium (Lovenox -) 40 mg SQ DAILY [facility] Last Admin: 12/19/16 10:29 Dose: 40 mg Fentanyl (Sublimaze Injection -) 50 mcg IVPUSH [id number] PRN PRN Reason: PAIN Stop: 12/20/16 17:26 Vancomycin HCl 1,250 mg/ (Dextrose) 250 mls @ 166.667 mls/hr IVPB BID@0600, 1800 [facility] PRN Reason: Protocol Last Admin: 12/19/16 05:41 Dose: 166.667 mls/hr Ketorolac Tromethamine (Toradol) 10 mg PO Q6HPO PRN PRN Reason: PAIN Stop: 12/22/16 00:00 Last Admin: 12/19/16 10:30 Dose: 10 mg Nicotine (Nicoderm Patch -) 21 mg TD DAILY [facility] Last Admin: 12/19/16 10:29 Dose: 21 mg Ondansetron HCl (Zofran Injection) 4 mg IVPB Q6H PRN PRN Reason: NAUSEA Piperacillin Sod/Tazobactam Sod (Zosyn 4.5gm Ivpb (Pre-Docked)) 4.5 gm IVPB Q8H -IV DEL Last Admin: 12/19/16 10:31 Dose: 4.5 gm Trazodone HCl (Desyrel -) 100 mg PO HS DEL Last Admin: 12/18/16 21:29 Dose: 100 mg a/p abscess left upper arm -pod #2 MRSA sensitivities pending continue vancomycin d/c zosyn f/u cultures vancomycin trough 13 active injection drug use hepatitis C Problem List - Problems (1) Abscess Code(s): L02.91 - CUTANEOUS ABSCESS, UNSPECIFIED (2) Substance abuse Code(s): F19.10 - OTHER PSYCHOACTIVE SUBSTANCE ABUSE, UNCOMPLICATED (3) Hepatitis C Code(s): B19.20 - UNSPECIFIED VIRAL HEPATITIS C WITHOUT HEPATIC COMA
[2016-12-19] MEDS: diphenhydrAMINE HCL 25 MG CAPSULE (FP) PO PRN (22:14)
[2016-12-19] MEDS: traZODone HCL 50 MG TABLET (FP) PO SCH (22:14)
[2016-12-20] MEDS: DOCUSATE SODIUM 100 MG CAPSULE (FP) PO SCH ×2 (06:54→14:13)
[2016-12-20] MEDS: VANCOMYCIN 1,250 MG in DEXTROSE 5%-WATER - 250 ML IVPB SCH (06:54)
[2016-12-20] MEDS ORDERED: PT OWN MED DRAWER 7, Y5N ONE (09:28)
[2016-12-20 09:55] VITALS: BP 109/72; PULSE 61; TEMP 98.5
[2016-12-20] MEDS: buPROPion HCL 100 MG TABLET PO SCH (09:58)
[2016-12-20] MEDS: ENOXAPARIN NA (PORCINE) 40 MG/0.4 ML DISP.SYRIN SQ SCH (09:58)
[2016-12-20] MEDS: NICOTINE 21 MG/24 HOURS TOPICAL PATCH TD SCH (09:59)
--- NOTE | 2016-12-20 10:17 | PN ---
Progress Note, Physician Chief Complaint: none History of Present Illness: no pain. - Current Medication List Current Medications: Active Medications Acetaminophen (Tylenol -) 650 mg PO Q4H PRN PRN Reason: FEVER OR PAIN Bupropion HCl (Wellbutrin -) 100 mg PO DAILY [facility] Last Admin: 12/20/16 09:58 Dose: 100 mg Diphenhydramine HCl (Benadryl -) 25 mg PO HS PRN PRN Reason: INSOMNIA Last Admin: 12/19/16 22:14 Dose: 25 mg Docusate Sodium (Colace -) 100 mg PO TID [facility] Last Admin: 12/20/16 06:54 Dose: 100 mg Enoxaparin Sodium (Lovenox -) 40 mg SQ DAILY [facility] Last Admin: 12/20/16 09:58 Dose: 40 mg Fentanyl (Sublimaze Injection -) 50 mcg IVPUSH [id number] PRN PRN Reason: PAIN Stop: 12/20/16 17:26 Vancomycin HCl 1,250 mg/ (Dextrose) 250 mls @ 166.667 mls/hr IVPB BID@0600, 1800 [facility] PRN Reason: Protocol Last Admin: 12/20/16 06:54 Dose: 166.667 mls/hr Ketorolac Tromethamine (Toradol) 10 mg PO Q6HPO PRN PRN Reason: PAIN Stop: 12/22/16 00:00 Last Admin: 12/19/16 10:30 Dose: 10 mg Nicotine (Nicoderm Patch -) 21 mg TD DAILY [facility] Last Admin: 12/20/16 09:59 Dose: 21 mg Ondansetron HCl (Zofran Injection) 4 mg IVPB Q6H PRN PRN Reason: NAUSEA Trazodone HCl (Desyrel -) 100 mg PO HS [facility] Last Admin: 12/19/16 22:14 Dose: 100 mg - Objective Vital Signs: Vital Signs Temperature 98.5 F 12/20/16 09:00 Pulse Rate 61 12/20/16 09:00 Respiratory Rate 20 12/20/16 09:00 Blood Pressure 109/72 12/20/16 09:00 O2 Sat by Pulse Oximetry (%) 98 12/18/16 09:00 Extremities: Yes: Other (L arm drain blood/min purulent material. alot less indurated. alot less tender) Labs: CBC, BMP 12/19/16 06:10 Problem List - Problems (1) Abscess Assessment/Plan: cont brandon drain. cont to irrigate. would recommend keeping in brandon drains for another week. can goto rehab with drains. will remove in office. mrsa abx as per ID Code(s): L02.91 - CUTANEOUS ABSCESS, UNSPECIFIED (2) Cellulitis of left arm Code(s): L03.114 - CELLULITIS OF LEFT UPPER LIMB (3) Drug-induced mood disorder Code(s): F19.94 - OTH PSYCHOACTIVE SUBSTANCE USE, UNSP W MOOD DISORDER (4) Opioid dependence with withdrawal Code(s): F11.23 - OPIOID DEPENDENCE WITH WITHDRAWAL (5) Alcohol dependence Code(s): F10.20 - ALCOHOL DEPENDENCE, UNCOMPLICATED
--- NOTE | 2016-12-20 13:15 | DS ---
Physical Examination Vital Signs: Vital Signs Temperature 98.5 F 12/20/16 09:00 Pulse Rate 61 12/20/16 09:00 Respiratory Rate 20 12/20/16 09:00 Blood Pressure 109/72 12/20/16 09:00 O2 Sat by Pulse Oximetry (%) 98 12/18/16 09:00 Findings/Remarks: Physical Exam: General: NAD, A&Ox3 Lungs: CTA bilaterally Heart: RRR, S1S2 Abd: Soft, non-tender, non-distended. Normoactive bowel sounds Ext: LUE with dressing, c/d/i. 2+ distal pulses b/l equal Neuro: CN 2- 12 intact Labs: CBC, BMP 12/19/16 06:10 Discharge Summary Reason For Visit: LUE CELLULITIS, ABCESS Current Active Problems Abscess (Acute) DVT prophylaxis (Acute) Hepatitis C (Chronic) Substance abuse (Acute) Opioid dependence (Chronic) Hospital Course: This is a 36 year old male with a history of IVDU (heroin + cocaine, last use Friday) sent from the [facility] detox facility for evaluation of left arm cellulitis. He reports injecting in the left upper arm on Friday, and began developing redness and pain on Friday. He denies fevers/chill or any other systemic symptoms. He was started on Bactrim DS on Friday (12/11) without improvement. He reports an abscess in the left wrist which required I&D in the past, but is unable to recall exactly when. Plan: 1) ID: LUE cellulitis - S/p I&D on 12/17, [address], can remove upon discharge - Received Vancomycin and Zosyn while in the hospital - Abscess wound culture MRSA - Appreciate ID consult 2) Psych: Opioid dependence - Continue Methadone Nicotine dependence - Continue Nicoderm Depression - Continue Wellbutrin 3) F/E/N: - Regular diet Discussed with Dr. Hoyos, will discharge on Clindamycin 300mg tid x10 days and instructed the patient to follow-up with Dr. Perez on 12/25/16. Dr. Perez aware and in agreement with plan. Condition: Improved - Instructions Diet, Activity, Other Instructions: Please return to the ED with new, persistent, or worsening symptoms. Please follow-up with Dr. Perez for removal of your brandon drain on 12/25/16. Continue local wound care and dressing changes daily. Wash with warm water daily dry dressing. Cover wound and ok to shower. Referrals: David Humphries MD [Staff Physician] - 1 Week Keven Perez MD [Staff Physician] - (Please follow-up with Dr. Perez on 12/25/16 to have your brandon drain removed and for further evaluation/ need for further antibiotics) Disposition: HOME - Home Medications Comprehensive Discharge Medication List: Ambulatory Orders Bupropion HCl [Wellbutrin -] 100 mg PO DAILY #30 tablet 12/20/16 Clindamycin [Cleocin -] 300 mg PO TID #30 capsule 12/20/16 Lactobacillus Acidophilus [Bacid -] 1 each PO DAILY #30 capsule 12/20/16 Nicotine Patch [Nicoderm Patch -] 21 mg TD DAILY #30 patch 12/20/16 This patient is new to me today: No Emergency Visit: Yes ED Registration Date: 12/17/16 Care time: The patient presented to the Emergency Department on the above date and was hospitalized for further evaluation of their emergent condition. Critical Care patient: No - Discharge Referral Referred to [facility] Yes Physician Referral: David Roldan MD ([facility])
== END 2016-12-20 14:39 | disposition home or self-care (01) | DRG 383 ==
LOC: JER 12:58 → JERBED 15:33 → J5S 17:29 → OBSVTOIN 12-17 10:45
PROVIDERS: ADMIT Internal Medicine; ATTEND Registered Nurse
PROC: HZ81ZZZ Medication Management for Substance Abuse Treatment, Methadone Maintenance (ICD-10-PCS; 2016-12-16)
PROC: 0J9F00Z Drainage of Left Upper Arm Subcutaneous Tissue and Fascia with Drainage Device, Open Approach (ICD-10-PCS; principal; 2016-12-17 15:30)
DX: L02.414 Cutaneous abscess of left upper limb (principal); B95.62 Methicillin resistant Staphylococcus aureus infection as the cause of diseases classified elsewhere; F14.10 Cocaine abuse, uncomplicated; F11.10 Opioid abuse, uncomplicated; F17.210 Nicotine dependence, cigarettes, uncomplicated; L03.114 Cellulitis of left upper limb; F19.94 Other psychoactive substance use, unspecified with psychoactive substance-induced mood disorder; B19.20 Unspecified viral hepatitis C without hepatic coma
CPT/HCPCS: 36415; 71020-TC; 73060-TC-LT; 73070-TC-LT; 76882; 80048; 80053; 85025; 87040; 87070; 87186; 87205; 87389; 93005; 93010; 93971; 94760; 99285-25; G0378; G0480

== ENCOUNTER 2017-07-31 11:29 | Inpatient (IN) | payer OTHER ==
[2017-07-31 13:24] VITALS: BMI 25.1
--- NOTE | 2017-07-31 14:31 | HP ---
COWS - Scale Resting Pulse: 1= [place] 81-100 Sweatin=Flushed/Facial Moisture Restless Observation: 1= Difficult to Sit Still Pupil Size: 0= Normal to Room Light Bone or Joint Aches: 2= Severe Diffuse Aches Runny Nose/ Eye Tearin= Runny Nose/Eyes GI Upset > 30mins: 2= Nausea/Diarrhea Tremor Observation: 2= Slight Tremor Visible Yawning Observation: 2= >3x During Session Anxiety or Irritability: 2=Irritable/Anxious Goose Flesh Skin: 3=Piloerection COWS Score: 19 CIWA Score - CIWA Score Nausea/Vomitin-No Nausea/No Vomiting Muscle Tremors: 4-Moderate,w/Arms Extend Anxiety: 4-Mod. Anxious/Guarded Agitation: 4-Moderately Restless Paroxysmal Sweats: 3 Orientation: 0-Oriented Tacttile Disturbances: 0-None Auditory Disturbances: 0-None Visual Disturbances: 0-None Headache: 1-Very Mild CIWA-Ar Total Score: 16 Admission ROS S - HPI Chief Complaint: I am here for detox. Allergies/Adverse Reactions: Allergies Allergy/AdvReac Type Severity Reaction Status Date / Time No Known Allergies Allergy Verified 07/31/17 13:40 History of Present Illness: pt is a 37yr old male with a history of alcohol, heroin and cocaine dependence seeking for treatment. Exam Limitations: No Limitations - Ebola screening Have you traveled outside of the country in the last 21 days: No Have you had contact with anyone from an Ebola affected area: No Have you been sick,other than usual withdrawal symptoms: No Do you have a fever: No - Review of Systems Constitutional: Chills, Diaphoresis, Loss of Appetite, Night Sweats, Changes in sleep, Unintentional Wgt. Loss EENT: reports: Blurred Vision, Tearing, Nose Congestion Respiratory: reports: No Symptoms reported Cardiac: reports: No Symptoms Reported GI: reports: Constipated, Nausea, Poor Fluid Intake : reports: No Symptoms Reported Musculoskeletal: reports: No Symptoms Reported Integumentary: reports: Flushing, Sweating Neuro: reports: Headache, Tingling, Tremors Endocrine: reports: Excessive Sweating, Flushing, Intolerance to Cold, Intolerance to Heat Hematology: reports: No Symptoms Reported Psychiatric: reports: Judgement Intact, Mood/Affect Appropiate, Orientated x3, Agitated, Anxious Other Systems: Reviewed and Negative Patient History - Patient Medical History Hx Anemia: No Hx Asthma: No Hx Chronic Obstructive Pulmonary Disease (COPD): No Hx Cancer: No Hx Cardiac Disorders: No Hx Congestive Heart Failure: No Hx Hypertension: No Hx Hypercholesterolemia: No Hx Pacemaker: No HX Cerebrovascular Accident: No Hx Seizures: No Hx Dementia: No Hx Diabetes: No Hx Gastrointestinal Disorders: No Hx Liver Disease: No Hx Genitourinary Disorders: No Hx Sexually Transmitted Disorders: No Hx Renal Disease (ESRD): No Hx Thyroid Disease: No Hx Human Immunodeficiency Virus (HIV): No (negative 1 yr ago) Hx Hepatitis C: Yes (treated) Hx Depression: Yes Hx Suicide Attempt: No (denies) Hx Bipolar Disorder: No Hx Schizophrenia: No - Patient Surgical History Past Surgical History: Yes Hx Neurologic Surgery: No Hx Cataract Extraction: No Hx Cardiac Surgery: No Hx Lung Surgery: No Hx Breast Surgery: No Hx Breast Biopsy: No Hx Abdominal Surgery: No Hx Appendectomy: No Hx Cholecystectomy: No Hx Genitourinary Surgery: No Hx Section: No Hx Orthopedic Surgery: No Hx Hysterectomy: No Other Surgical History: right inguinal hernia repair in 2013 Anesthesia Reaction: No - PPD History Previous Implant?: Yes Documented Results: Negative w/proof Implanted On Prior R Admission?: Yes Date: 12/13/16 Results: 0 mm PPD to be Administered?: No - Reproductive History Patient is a Female of Child Bearing Age (11 -55 yrs old): No - Smoking Cessation Smoking history: Current every day smoker Have you smoked in the past 12 months: Yes Aproximately how many cigarettes per day: 20 Cigars Per Day: 0 Hx Chewing Tobacco Use: No Initiated information on smoking cessation: Yes 'Breaking Loose' booklet given: 07/31/17 - Substance & Tx. History Hx Alcohol Use: Yes Hx Substance Use: Yes Substance Use Type: Alcohol, Cocaine, Heroin, Marijuana Hx Substance Use Treatment: Yes (11/2016 [facility] detox) - Substances Abused Heroin Route: Injection Frequency: Daily Amount used: 20 bags Age of first use: 26 Date of Last Use: 07/30/17 Cocaine Route: Injection Frequency: Daily Amount used: $20-40 Age of first use: 26 Date of Last Use: 07/30/17 Alcohol-cognac/beer Route: Oral Frequency: Daily Amount used: 5 pts./1-6 pk Age of first use: 15 Date of Last Use: 07/30/17 Street methadone Route: Oral Frequency: 1-3 times last 30 days Amount used: 40 mg. Age of first use: 36 Date of Last Use: 07/29/17 Family Disease History - Family Disease History Family History: Denies Admission Physical Exam [facility] - Vital Signs Vital Signs: Vital Signs - 24 hr 07/31/17 13:21 Temperature 96.2 F L Pulse Rate 86 Respiratory 20 Rate Blood Pressure 123/66 - Physical General Appearance: Yes: Appropriately Dressed, Moderate Distress, Tremorous, Irritable, Sweating, Anxious HEENTM: Yes: Hearing grossly Normal, Normal Voice, Nasal Congestion, Rhinorrhea Respiratory: Yes: Lungs Clear, Normal Breath Sounds, No Respiratory Distress Neck: Yes: No masses,lesions,Nodules Breast: Yes: Within Normal Limits Cardiology: Yes: Regular Rhythm, Regular Rate, S1, S2 Abdominal: Yes: Normal Bowel Sounds Genitourinary: Yes: Within Normal Limits Back: Yes: Normal Inspection Musculoskeletal: Yes: full range of Motion, Back pain Extremities: Yes: Normal Capillary Refill, Normal Inspection, Non-Tender, Tremors Neurological: Yes: Fully Oriented, Alert, Normal Response Integumentary: Yes: Normal Color, Diaphoresis, Track Mckeon Lymphatic: Yes: Within Normal Limits - Diagnostic (1) Alcohol dependence with uncomplicated withdrawal Current Visit: Yes Status: Chronic (2) Hepatitis C Current Visit: Yes Status: Chronic Qualifiers: Viral hepatitis chronicity: chronic Hepatic coma status: without hepatic coma Qualified Code(s): B18.2 - Chronic viral hepatitis C Comment: pt received treatment. (3) Opioid dependence with withdrawal Current Visit: Yes Status: Chronic (4) Cocaine dependence Current Visit: Yes Status: Chronic (5) Nicotine dependence Current Visit: No Status: Chronic Qualifiers: Nicotine product type: cigarettes Substance use status: uncomplicated Qualified Code(s): F17.210 - Nicotine dependence, cigarettes, uncomplicated Cleared for Admission [facility] - Detox or Rehab [facility] Level of Care: Medically Managed Detox Regimen/Protocol: Methadone/Librium [facility] Breath Alcohol Content Breath Alcohol Content: 0 Urine Drug Screen - Results Drug Screen Negative: No Urine Drug Screen Results: THC-Marijuana, LAZARO-Cocaine, OPI-Opiates, BZO- Benzodiazepines, MTD-Methadone
[2017-07-31] MEDS ORDERED: IBUPROFEN 400 MG TABLET (FP) PO PRN (14:35)
[2017-07-31] MEDS ORDERED: NICOTINE POLACRILEX 4 MG GUM BUC PRN (14:35)
[2017-07-31] MEDS ORDERED: MENTHOL/PHENOL 1 EACH UD MM PRN (14:35)
[2017-07-31] MEDS ORDERED: MAGNESIUM HYDROX 2400MG/30ML ORAL SUSPENSION 30 ML CUP PO PRN (14:35)
[2017-07-31] MEDS ORDERED: LOPERAMIDE HCL 2 MG CAPSULE PO PRN (14:35)
[2017-07-31] MEDS ORDERED: ACETAMINOPHEN 325 MG TABLET (FP) PO PRN (14:35)
[2017-07-31] MEDS ORDERED: P-EPHED 60MG/TRIPROLIDI 2.5MG TABLET PO PRN (14:35)
[2017-07-31] MEDS ORDERED: MAG HYDROX/AL HYDROX/SIMETH 30 ML UNIT-DOSE CUP PO PRN (14:35)
[2017-07-31] MEDS ORDERED: hydrOXYzine PAMOATE 50 MG CAPSULE (FP) PO PRN (14:35)
[2017-07-31] MEDS ORDERED: MAGNESIUM CITRATE 300 ML BOTTLE PO PRN (14:35)
[2017-07-31] MEDS ORDERED: chlordiazePOXIDE HCL 25 MG CAPSULE PO PRN (14:35)
[2017-07-31] MEDS ORDERED: guaiFENesin/D-METHORPHAN HB 10 ML UNIT-DOSE CUPS PO PRN (14:35)
[2017-07-31] MEDS ORDERED: chlordiazePOXIDE HCL 25 MG CAPSULE PO ONE (14:57)
[2017-07-31] MEDS ORDERED: METHADONE HCL 10 MG TABLET (FOR DETOX USE ONLY) PO ONE ×2 (14:58→23:00)
--- NOTE | 2017-07-31 16:00 | CONSULT ---
[facility] Psychiatric Consult - Data Date of interview: 07/31/17 Admission source: [facility] Identifying data: This is 37 years old male with no psychiatric hospitalization history intoxicated with: Alcohol, [place], Opioids and Nicotine Substance Abuse History: - Smoking Cessation. Smoking history: Current every day smoker. Have you smoked in the past 12 months: Yes. Aproximately how many cigarettes per day: 20. Cigars Per Day: 0. Hx Chewing Tobacco Use: No. Initiated information on smoking cessation: Yes. 'Breaking Loose' booklet given : 07/31/17. - Substance & Tx. History. Hx Alcohol Use: Yes. Hx Substance Use : Yes. Substance Use Type: Alcohol, Cocaine, Heroin, Marijuana. Hx Substance Use Treatment: Yes (11/2016 [facility] detox). - Substances Abused. Heroin. Route: Injection. Frequency: Daily. Amount used: 20 bags. Age of first use: 26. Date of Last Use: 07/30/17. Cocaine. Route: Injection. Frequency: Daily. Amount used: $20-40. Age of first use: 26. Date of Last Use: . Alcohol-cognac/beer. Route: Oral. Frequency: Daily. Amount used: 5 pts./1-6 pk. Age of first use: 15. Date of Last Use: 07/30/17. Street methadone. Route: Oral. Frequency: 1-3 times last 30 days. Amount used: 40 mg. Age of first use: 36. 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 Reports taking i the past. Trazodone 100mg po qhs. Seropquel 100mg poqd Physical/Sexual Abuse/Trauma History: Denies Additional Comment: Trazodone 100mg po qhs. Seropquel 100mg poqd Mental Status Exam - Mental Status Exam Alert and Oriented to: Person Cognitive Function: Fair Patient Appearance: Unkempt Mood: Anxious Affect: Mood Congruent Patient Behavior: Cooperative Speech Pattern: Appropriate Voice Loudness: Normal Thought Process: Goal Oriented Thought Disorder: Being Controlled Hallucinations: Denies Suicidal Ideation: Denies Homicidal Ideation: Denies Insight/Judgement: Fair Sleep: Difficulty falling asleep Appetite: Weight loss Muscle strength/Tone: Normal Gait/Station: Normal Additional Comments: Trazodone 100mg po qhs. Seropquel 100mg poqd Psychiatric Findings - Problem List ([place] 1, 2,3) (1) Alcohol dependence with uncomplicated withdrawal Current Visit: Yes Status: Chronic (2) Cocaine dependence Current Visit: Yes Status: Chronic (3) Opioid dependence with withdrawal Current Visit: Yes Status: Chronic (4) Drug-induced mood disorder Current Visit: No Status: Acute (5) Alcohol dependence Current Visit: No Status: Chronic (6) Nicotine dependence Current Visit: No Status: Chronic Qualifiers: Nicotine product type: cigarettes Substance use status: uncomplicated Qualified Code(s): F17.210 - Nicotine dependence, cigarettes, uncomplicated (7) Opioid dependence Current Visit: No Status: Chronic - Initial Treatment Plan Initial Treatment Plan: Trazodone 100mg po qhs. Seropquel 100mg poqd
[2017-07-31 16:41] LABS: URINE APPEARANCE CLEAR; URINE BILIRUBIN NEGATIVE (NEGATIVE); URINE BLOOD NEGATIVE (NEGATIVE); URINE COLOR YELLOW; URINE GLUCOSE (UA) NEGATIVE (NEGATIVE); URINE KETONE NEGATIVE (NEGATIVE); URINE LEUK ESTERASE NEGATIVE (NEGATIVE); URINE NITRITE NEGATIVE (NEGATIVE); URINE PROTEIN NEGATIVE (NEGATIVE)
[2017-07-31] MEDS: chlordiazePOXIDE HCL 25 MG CAPSULE PO SCH ×2 (17:17→22:40)
[2017-07-31 19:27] LABS: URINE LEUK ESTERASE Negative (NEGATIVE)
[2017-07-31] MEDS: THIAMINE HCL 100 MG TABLET (FP) PO SCH (22:40)
[2017-08-01] MEDS: chlordiazePOXIDE HCL 25 MG CAPSULE PO SCH ×4 (06:14→22:17)
[2017-08-01] MEDS ORDERED: METHADONE HCL 10 MG TABLET (FOR DETOX USE ONLY) PO SCH (10:00)
[2017-08-01] MEDS: SERTRALINE HCL 50 MG TABLET (FP) PO SCH (10:13)
[2017-08-01] MEDS: PRENATAL VITAMINS W/ FOLIC ACID TABLET (FP) PO SCH (10:14)
[2017-08-01] MEDS: NICOTINE 21 MG/24 HOURS TOPICAL PATCH TD SCH (10:14)
--- NOTE | 2017-08-01 10:50 | EKG ---
Test Reason : Blood Pressure : / mmHG Vent. Rate : 070 BPM Atrial Rate : 070 BPM P-R Int : 168 ms QRS Dur : 094 ms QT Int : 400 ms P-R-T Axes : 073 088 060 degrees QTc Int : 432 ms NORMAL SINUS RHYTHM NORMAL ECG WHEN COMPARED WITH ECG OF 15-DEC-2016 15:00, FUSION COMPLEXES ARE NO LONGER PRESENT Confirmed by MD LOS, MILADIS ([id number]) on 08/01/2017 10:50:31 AM Referred By: Confirmed By:MILADIS MADISON MD
[2017-08-01 11:03] LABS: MCH 27.9 pg (25.7-33.7); MCHC 32.7 g/dl (32.0-35.9); MEAN CELL VOLUME 85.4 fl (80-96); MEAN PLT VOLUME 9.9 fl (7.5-11.1); PLATELET COUNT 295 K/MM3 (134-434); RDW 12.4 % (11.9-15.9); WHITE BLOOD COUNT 9.7 K/mm3 (4.0-10.0)
[2017-08-01 11:06] LABS: ALBUMIN 3.6 g/dl (3.4-5.0); ANION GAP 6 (8-16); CALCIUM 8.7 mg/dL (8.5-10.1); CO2 29 mmol/L (21-32); GLUCOSE,RANDOM 93 mg/dL (74-106); SGOT/AST 11 U/L (15-37); SGPT/ALT 17 U/L (12-78)
[2017-08-01 11:09] LABS: ALK PHOS 98 U/L (45-117); BILIRUBIN,TOTAL 0.5 mg/dL (0.2-1.0); CREATININE 0.9 mg/dL (0.7-1.3); TOT PROT 7.4 g/dl (6.4-8.2)
[2017-08-01 11:27] LABS: HIV 1 & 2 AB NEGATIVE; HIV 1 AGp24 NEGATIVE
--- NOTE | 2017-08-01 15:13 | PN ---
[facility] CIWA - CIWA Score Nausea/Vomitin-No Nausea/No Vomiting Muscle Tremors: 4-Moderate,w/Arms Extend Anxiety: 5 Agitation: 2 Paroxysmal Sweats: 3 Orientation: 0-Oriented Tacttile Disturbances: 2-Mild Itch/Numbness/Burn Auditory Disturbances: 2-Mild Harshness/Frighten Visual Disturbances: 0-None Headache: 0-None Present CIWA-Ar Total Score: 18 S COWS - Scale Resting Pulse: 0= [place] 80 or Below Sweatin= Chills/Flushing Restless Observation: 0= Sits Still Pupil Size: 0= Normal to Room Light Bone or Joint Aches: 2= Severe Diffuse Aches Runny Nose/ Eye Tearin= None GI Upset > 30mins: 0= None Tremor Observation of Outstretched Hands: 2= Slight Tremor Visible Yawning Observation: 2= >3x During Session Anxiety or Irritability: 2=Irritable/Anxious Goose Flesh Skin: 3=Piloerection COWS Score: 12 S Progress Note (SOAP) Subjective: Tremors, Sweating, Anxious, Body Aches, Fatigue. Objective: PT. A & O X 3. NO ACUTE DISTRESS. 08/01/17 15:12 Vital Signs Temperature 96.9 F L 08/01/17 13:29 Pulse Rate 62 08/01/17 13:29 Respiratory Rate 18 08/01/17 13:29 Blood Pressure 104/67 08/01/17 13:29 O2 Sat by Pulse Oximetry (%) Laboratory Tests 07/31/17 07/31/17 08/01/17 08:00 15:40 06:00 WBC 9.7 RBC 4.52 Hgb 12.6 Hct 38.6 MCV 85.4 MCH 27.9 MCHC 32.7 RDW 12.4 Plt Count 295 D MPV 9.9 D Sodium Potassium Chloride Carbon Dioxide Anion Gap BUN Creatinine Creat Clearance w eGFR Random Glucose Calcium Total Bilirubin AST ALT Alkaline Phosphatase Total Protein Albumin Urine Color Yellow Urine Appearance Clear Urine pH 7.0 D Ur Specific [place] 1.018 Urine Protein Negative Urine Glucose (UA) Negative Urine Ketones Negative Urine Blood Negative Urine Nitrite Negative Urine Bilirubin Negative Urine Urobilinogen 2.0 Ur Leukocyte Esterase Negative RPR Titer HIV 1&2 Antibody Screen Negative HIV P24 Antigen Negative 08/01/17 08/01/17 06:00 06:00 WBC RBC Hgb Hct MCV MCH MCHC RDW Plt Count MPV Sodium 137 Potassium 4.2 Chloride 102 Carbon Dioxide 29 Anion Gap 6 L BUN 9 D Creatinine 0.9 Creat Clearance w eGFR > 60 Random Glucose 93 Calcium 8.7 Total Bilirubin 0.5 D AST 11 L D ALT 17 D Alkaline Phosphatase 98 D Total Protein 7.4 Albumin 3.6 D Urine Color Urine Appearance Urine pH Ur Specific [place] Urine Protein Urine Glucose (UA) Urine Ketones Urine Blood Urine Nitrite Urine Bilirubin Urine Urobilinogen Ur Leukocyte Esterase RPR Titer Nonreactive HIV 1&2 Antibody Screen HIV P24 Antigen LABS NOTED. Assessment: 08/01/17 15:12 WITHDRAWAL SYMPTOMS. Plan: CONTINUE DETOX. INCREASE DAILY PO FLUID INTAKE.
[2017-08-01] MEDS: traZODone HCL 100 MG TABLET (FP) PO PRN (22:17)
[2017-08-01] MEDS: THIAMINE HCL 100 MG TABLET (FP) PO SCH (22:17)
[2017-08-02] MEDS: chlordiazePOXIDE HCL 25 MG CAPSULE PO SCH ×2 (06:16→10:13)
[2017-08-02] MEDS: NICOTINE 21 MG/24 HOURS TOPICAL PATCH TD SCH (10:13)
[2017-08-02] MEDS: PRENATAL VITAMINS W/ FOLIC ACID TABLET (FP) PO SCH (10:13)
[2017-08-02] MEDS: SERTRALINE HCL 50 MG TABLET (FP) PO SCH (10:13)
[2017-08-02] MEDS: METHADONE HCL 5 MG TABLET (FOR DETOX USE ONLY) PO SCH (10:14)
[2017-08-02] MEDS ORDERED: ONDANSETRON *ODT* 4 MG TABLET SL PRN (12:00)
--- NOTE | 2017-08-02 15:37 | PN ---
[facility] CIWA - CIWA Score Nausea/Vomitin Muscle Tremors: None Anxiety: 4-Mod. Anxious/Guarded Agitation: 3 Paroxysmal Sweats: 3 Orientation: 0-Oriented Tacttile Disturbances: 2-Mild Itch/Numbness/Burn Auditory Disturbances: 0-None Visual Disturbances: 0-None Headache: 0-None Present CIWA-Ar Total Score: 17 B[facility] COWS - Scale Resting Pulse: 0= [place] 80 or Below Sweatin= Chills/Flushing Restless Observation: 1= Difficult to Sit Still Pupil Size: 0= Normal to Room Light Bone or Joint Aches: 2= Severe Diffuse Aches Runny Nose/ Eye Tearin= None GI Upset > 30mins: 3= Vomiting/Diarrhea Tremor Observation of Outstretched Hands: 0= None Yawning Observation: 1= 1-2x During Session Anxiety or Irritability: 2=Irritable/Anxious Goose Flesh Skin: 3=Piloerection COWS Score: 13 S Progress Note (SOAP) Subjective: Vomiting, Interrupted Sleep, Body Aches, Sweating. Objective: PT. A & O X 3, OBSERVED AMBULATING ON UNIT. NO ACUTE DISTRESS. 08/02/17 15:36 Vital Signs Temperature 97.0 F L 08/02/17 09:45 Pulse Rate 69 08/02/17 09:45 Respiratory Rate 18 08/02/17 09:45 Blood Pressure 105/58 08/02/17 09:45 O2 Sat by Pulse Oximetry (%) Laboratory Tests 07/31/17 07/31/17 08/01/17 08:00 15:40 06:00 WBC 9.7 RBC 4.52 Hgb 12.6 Hct 38.6 MCV 85.4 MCH 27.9 MCHC 32.7 RDW 12.4 Plt Count 295 D MPV 9.9 D Sodium Potassium Chloride Carbon Dioxide Anion Gap BUN Creatinine Creat Clearance w eGFR Random Glucose Calcium Total Bilirubin AST ALT Alkaline Phosphatase Total Protein Albumin Urine Color Yellow Urine Appearance Clear Urine pH 7.0 D Ur Specific [place] 1.018 Urine Protein Negative Urine Glucose (UA) Negative Urine Ketones Negative Urine Blood Negative Urine Nitrite Negative Urine Bilirubin Negative Urine Urobilinogen 2.0 Ur Leukocyte Esterase Negative RPR Titer HIV 1&2 Antibody Screen Negative HIV P24 Antigen Negative 08/01/17 08/01/17 06:00 06:00 WBC RBC Hgb Hct MCV MCH MCHC RDW Plt Count MPV Sodium 137 Potassium 4.2 Chloride 102 Carbon Dioxide 29 Anion Gap 6 L BUN 9 D Creatinine 0.9 Creat Clearance w eGFR > 60 Random Glucose 93 Calcium 8.7 Total Bilirubin 0.5 D AST 11 L D ALT 17 D Alkaline Phosphatase 98 D Total Protein 7.4 Albumin 3.6 D Urine Color Urine Appearance Urine pH Ur Specific [place] Urine Protein Urine Glucose (UA) Urine Ketones Urine Blood Urine Nitrite Urine Bilirubin Urine Urobilinogen Ur Leukocyte Esterase RPR Titer Nonreactive HIV 1&2 Antibody Screen HIV P24 Antigen LABS NOTED. Assessment: 08/02/17 15:36 WITHDRAWAL SYMPTOMS. Plan: CONTINUE DETOX. PRN ZOFRAN SL FOR NAUSEA / VOMITING. INCREASE DAILY PO FLUID INTAKE.
[2017-08-02] MEDS: chlordiazePOXIDE 5 MG CAPSULE PO SCH ×2 (17:13→22:17)
[2017-08-02] MEDS: THIAMINE HCL 100 MG TABLET (FP) PO SCH (22:17)
[2017-08-02] MEDS: traZODone HCL 100 MG TABLET (FP) PO PRN (22:19)
[2017-08-03] MEDS: chlordiazePOXIDE 5 MG CAPSULE PO SCH ×2 (06:11→10:58)
[2017-08-03] MEDS: PRENATAL VITAMINS W/ FOLIC ACID TABLET (FP) PO SCH (10:58)
[2017-08-03] MEDS: NICOTINE 21 MG/24 HOURS TOPICAL PATCH TD SCH (10:58)
[2017-08-03] MEDS: SERTRALINE HCL 50 MG TABLET (FP) PO SCH (10:58)
[2017-08-03] MEDS: METHADONE HCL 5 MG TABLET (FOR DETOX USE ONLY) PO SCH (10:58)
--- NOTE | 2017-08-03 15:21 | PN ---
[facility] Progress Note (SOAP) Subjective: Vomited x 2 this morning (refused antiemetic at this time), sweating, interrupted sleep Objective: 08/03/17 15:20 Last Vital Signs Temp Pulse Resp BP Pulse Ox 96.0 F L 79 18 102/63 08/03/17 14:16 08/03/17 14:16 08/03/17 14:16 08/03/17 14:16 Laboratory Tests 07/31/17 07/31/17 08/01/17 08:00 15:40 06:00 WBC 9.7 RBC 4.52 Hgb 12.6 Hct 38.6 MCV 85.4 MCH 27.9 MCHC 32.7 RDW 12.4 Plt Count 295 D MPV 9.9 D Sodium Potassium Chloride Carbon Dioxide Anion Gap BUN Creatinine Creat Clearance w eGFR Random Glucose Calcium Total Bilirubin AST ALT Alkaline Phosphatase Total Protein Albumin Urine Color Yellow Urine Appearance Clear Urine pH 7.0 D Ur Specific [place] 1.018 Urine Protein Negative Urine Glucose (UA) Negative Urine Ketones Negative Urine Blood Negative Urine Nitrite Negative Urine Bilirubin Negative Urine Urobilinogen 2.0 Ur Leukocyte Esterase Negative RPR Titer HIV 1&2 Antibody Screen Negative HIV P24 Antigen Negative 08/01/17 08/01/17 06:00 06:00 WBC RBC Hgb Hct MCV MCH MCHC RDW Plt Count MPV Sodium 137 Potassium 4.2 Chloride 102 Carbon Dioxide 29 Anion Gap 6 L BUN 9 D Creatinine 0.9 Creat Clearance w eGFR > 60 Random Glucose 93 Calcium 8.7 Total Bilirubin 0.5 D AST 11 L D ALT 17 D Alkaline Phosphatase 98 D Total Protein 7.4 Albumin 3.6 D Urine Color Urine Appearance Urine pH Ur Specific [place] Urine Protein Urine Glucose (UA) Urine Ketones Urine Blood Urine Nitrite Urine Bilirubin Urine Urobilinogen Ur Leukocyte Esterase RPR Titer Nonreactive HIV 1&2 Antibody Screen HIV P24 Antigen Labs noted Assessment: 08/03/17 15:20 Withdrawal symptoms Plan: Continue detox
[2017-08-03] MEDS: chlordiazePOXIDE HCL 10 MG CAPSULE PO SCH ×2 (17:33→22:17)
[2017-08-03] MEDS: THIAMINE HCL 100 MG TABLET (FP) PO SCH (22:17)
[2017-08-03] MEDS: traZODone HCL 100 MG TABLET (FP) PO PRN (22:19)
[2017-08-04] MEDS: chlordiazePOXIDE HCL 10 MG CAPSULE PO SCH ×2 (06:16→10:09)
[2017-08-04] MEDS ORDERED: METHADONE HCL 10 MG TABLET (FOR DETOX USE ONLY) PO SCH (10:00)
[2017-08-04] MEDS: SERTRALINE HCL 50 MG TABLET (FP) PO SCH (10:09)
[2017-08-04] MEDS: NICOTINE 21 MG/24 HOURS TOPICAL PATCH TD SCH (10:09)
[2017-08-04] MEDS: PRENATAL VITAMINS W/ FOLIC ACID TABLET (FP) PO SCH (10:09)
--- NOTE | 2017-08-04 12:43 | PN ---
[facility] Progress Note (SOAP) Subjective: ANXIETY,SWEATS,NAUSEA,FATIGUE. Objective: 08/04/17 12:40 Vital Signs Temperature 96.7 F L 08/04/17 09:29 Pulse Rate 64 08/04/17 09:29 Respiratory Rate 18 08/04/17 09:29 Blood Pressure 95/59 08/04/17 09:29 O2 Sat by Pulse Oximetry (%) Laboratory Last Values WBC 9.7 K/mm3 (4.0-10.0) 08/01/17 06:00 RBC 4.52 M/mm3 (4.00-5.60) 08/01/17 06:00 Hgb 12.6 GM/dL (11.7-16.9) 08/01/17 06:00 Hct 38.6 % (35.4-49) 08/01/17 06:00 MCV 85.4 fl (80-96) 08/01/17 06:00 MCH 27.9 pg (25.7-33.7) 08/01/17 06:00 MCHC 32.7 g/dl (32.0-35.9) 08/01/17 06:00 RDW 12.4 % (11.9-15.9) 08/01/17 06:00 Plt Count 295 K/MM3 (134-434) D 08/01/17 06:00 MPV 9.9 fl (7.5-11.1) D 08/01/17 06:00 Sodium 137 mmol/L (136-145) 08/01/17 06:00 Potassium 4.2 mmol/L (3.5-5.1) 08/01/17 06:00 Chloride 102 mmol/L (98-107) 08/01/17 06:00 Carbon Dioxide 29 mmol/L (21-32) 08/01/17 06:00 Anion Gap 6 (8-16) L 08/01/17 06:00 BUN 9 mg/dL (7-18) D 08/01/17 06:00 Creatinine 0.9 mg/dL (0.7-1.3) 08/01/17 06:00 Creat Clearance w eGFR > 60 (>60) 08/01/17 06:00 Random Glucose 93 mg/dL (74-106) 08/01/17 06:00 Calcium 8.7 mg/dL (8.5-10.1) 08/01/17 06:00 Total Bilirubin 0.5 mg/dL (0.2-1.0) D 08/01/17 06:00 AST 11 U/L (15-37) L D 08/01/17 06:00 ALT 17 U/L (12-78) D 08/01/17 06:00 Alkaline Phosphatase 98 U/L (45-117) D 08/01/17 06:00 Total Protein 7.4 g/dl (6.4-8.2) 08/01/17 06:00 Albumin 3.6 g/dl (3.4-5.0) D 08/01/17 06:00 Urine Color Yellow 07/31/17 15:40 Urine Appearance Clear 07/31/17 15:40 Urine pH 7.0 (5.0-8.0) D 07/31/17 15:40 Ur Specific [place] 1.018 (1.001-1.035) 07/31/17 15:40 Urine Protein Negative (NEGATIVE) 07/31/17 15:40 Urine Glucose (UA) Negative (NEGATIVE) 07/31/17 15:40 Urine Ketones Negative (NEGATIVE) 07/31/17 15:40 Urine Blood Negative (NEGATIVE) 07/31/17 15:40 Urine Nitrite Negative (NEGATIVE) 07/31/17 15:40 Urine Bilirubin Negative (NEGATIVE) 07/31/17 15:40 Urine Urobilinogen 2.0 mg/dL (0.2-1.0) 07/31/17 15:40 Ur Leukocyte Esterase Negative (NEGATIVE) 07/31/17 15:40 RPR Titer Nonreactive (NONREACTIVE) 08/01/17 06:00 HIV 1&2 Antibody Screen Negative 07/31/17 08:00 HIV P24 Antigen Negative 07/31/17 08:00 Assessment: 08/04/17 12:40 WITHDRAWAL SX Plan: CONTINUE DETOX ZOFRAN PRN
[2017-08-04] MEDS: traZODone HCL 100 MG TABLET (FP) PO PRN (22:10)
[2017-08-04] MEDS: THIAMINE HCL 100 MG TABLET (FP) PO SCH (22:10)
[2017-08-05] MEDS ORDERED: METHADONE HCL 5 MG TABLET (FOR DETOX USE ONLY) PO SCH (06:00)
[2017-08-05 09:32] VITALS: BP 135/87; PULSE 76; TEMP 96.1
[2017-08-05] MEDS: SERTRALINE HCL 50 MG TABLET (FP) PO SCH (10:10)
[2017-08-05] MEDS: PRENATAL VITAMINS W/ FOLIC ACID TABLET (FP) PO SCH (10:10)
[2017-08-05] MEDS: NICOTINE 21 MG/24 HOURS TOPICAL PATCH TD SCH (10:10)
--- NOTE | 2017-08-05 12:13 | DS ---
[facility] Detox Discharge Summary Admission Date: 07/31/17 Discharge Date: 08/05/17 - History Present History: Alcohol Dependence, Cocaine Dependence, Opioid Dependence Additional Comments: PAT[facility]. PATIENT WAS DISCHARGED FROM DETOX UNIT TO BE TAKEN TO REHAB UNIT IN STABLE MEDICAL CONDITION. Pertinent Past History: Hep C, Depression, Nicotine Dependence. - Physical Exam Results Vital Signs: Vital Signs Temperature 96.1 F L 08/05/17 09:32 Pulse Rate 76 08/05/17 09:32 Respiratory Rate 18 08/05/17 09:32 Blood Pressure 135/87 08/05/17 09:32 O2 Sat by Pulse Oximetry (%) Pertinent Admission Physical Exam Findings: WITHDRAWAL SYMPTOMS. Laboratory Tests 07/31/17 07/31/17 08/01/17 08:00 15:40 06:00 WBC 9.7 RBC 4.52 Hgb 12.6 Hct 38.6 MCV 85.4 MCH 27.9 MCHC 32.7 RDW 12.4 Plt Count 295 D MPV 9.9 D Sodium Potassium Chloride Carbon Dioxide Anion Gap BUN Creatinine Creat Clearance w eGFR Random Glucose Calcium Total Bilirubin AST ALT Alkaline Phosphatase Total Protein Albumin Urine Color Yellow Urine Appearance Clear Urine pH 7.0 D Ur Specific [place] 1.018 Urine Protein Negative Urine Glucose (UA) Negative Urine Ketones Negative Urine Blood Negative Urine Nitrite Negative Urine Bilirubin Negative Urine Urobilinogen 2.0 Ur Leukocyte Esterase Negative RPR Titer HIV 1&2 Antibody Screen Negative HIV P24 Antigen Negative 08/01/17 08/01/17 06:00 06:00 WBC RBC Hgb Hct MCV MCH MCHC RDW Plt Count MPV Sodium 137 Potassium 4.2 Chloride 102 Carbon Dioxide 29 Anion Gap 6 L BUN 9 D Creatinine 0.9 Creat Clearance w eGFR > 60 Random Glucose 93 Calcium 8.7 Total Bilirubin 0.5 D AST 11 L D ALT 17 D Alkaline Phosphatase 98 D Total Protein 7.4 Albumin 3.6 D Urine Color Urine Appearance Urine pH Ur Specific [place] Urine Protein Urine Glucose (UA) Urine Ketones Urine Blood Urine Nitrite Urine Bilirubin Urine Urobilinogen Ur Leukocyte Esterase RPR Titer Nonreactive HIV 1&2 Antibody Screen HIV P24 Antigen LABS NOTED. - Treatment Hospital Course: Detox Protocol Followed, Detoxed Safely, Responded well, Discharged Condition Good, Rehab Referral Accepted Patient has Accepted a Rehab Referral to: [facility]. - Medication Discharge Medications: Ambulatory Orders Sertraline HCl [Zoloft] 100 mg PO DAILY 07/31/17 Sertraline HCl [Zoloft] 100 mg PO DAILY #30 tablet 07/31/17 Trazodone HCl [Desyrel -] 100 mg PO HS PRN 07/31/17 Trazodone HCl [Desyrel -] 100 mg PO HS PRN #30 tablet 07/31/17 - Diagnosis (1) Alcohol dependence with uncomplicated withdrawal Current Visit: Yes Status: Acute (2) Cocaine dependence Current Visit: Yes Status: Acute (3) Opioid dependence with withdrawal Current Visit: Yes Status: Acute (4) Nicotine dependence Current Visit: Yes Status: Acute Qualifiers: Nicotine product type: cigarettes Substance use status: in withdrawal Qualified Code(s): F17.213 - Nicotine dependence, cigarettes, with withdrawal (5) Hepatitis C Current Visit: Yes Status: Chronic Qualifiers: Viral hepatitis chronicity: chronic Hepatic coma status: without hepatic coma Qualified Code(s): B18.2 - Chronic viral hepatitis C (6) Drug-induced mood disorder Current Visit: No Status: Acute (7) Alcohol dependence Current Visit: No Status: Chronic - AMA Did Patient Leave Against Medical Advice: No
--- NOTE | 2017-08-06 11:19 | HP ---
Psychiatrist Admission - Data Date of interview: 08/06/17 Admission source: 6N Identifying data: This is the second 5N inpatient rehabilitaion admission for this 37 year old single Hiapnic male father of one, unemployed and domiciled, residing with his mother and supported by relatives. Medical History: Treated for Hep C. Psychiatric History: Patient reports history of treatment for anxiety and depression, currently on Zoloft 100 mg po daily and Trazodone 100 mg po hs, no history of psychiatric hospitalizations, seen by and continued his medications. Physical/Sexual Abuse/Trauma History: Denies history of sexual, physcal and verbal abuse. Allergies/Adverse Reactions: Allergies Allergy/AdvReac Type Severity Reaction Status Date / Time No Known Allergies Allergy Verified 08/05/17 12:58 Date of last physical exam: 07/31/17 Concur with the findings of this exam: Yes - Substance Abuse/Tx History Hx Alcohol Use: Yes (cognac, beer daily) Hx Substance Use: Yes (street methadone 40 mg) Substance Use Type: Cocaine (mixing with heroin $40 daily), Heroin (20 bags daily IV use) Hx Substance Use Treatment: Yes Mental Status Exam - Mental Status Exam Alert and Oriented to: Time, Place, Person Cognitive Function: Good Patient Appearance: Well Groomed Mood: Anxious Affect: Appropriate, Mood Congruent Patient Behavior: Appropriate, Cooperative Speech Pattern: Clear, Appropriate Voice Loudness: Normal Thought Process: Intact, Goal Oriented Thought Disorder: Not Present Hallucinations: Denies Suicidal Ideation: Denies Homicidal Ideation: Denies Insight/Judgement: Fair Sleep: Fair Appetite: Fair Muscle strength/Tone: Normal Gait/Station: Normal Psychiatric Findings - Problem List ([place] 1, 2,3) (1) Cocaine dependence Status: Acute (2) Drug-induced mood disorder Status: Acute (3) Nicotine dependence Status: Acute Qualifiers: Nicotine product type: cigarettes Substance use status: in withdrawal Qualified Code(s): F17.213 - Nicotine dependence, cigarettes, with withdrawal (4) Alcohol dependence Status: Chronic (5) Opioid dependence Status: Chronic - Initial Treatment Plan Initial Treatment Plan: Will continue current medications, monitor progress as needed.
== END 2017-08-05 12:40 | disposition other institution (70) | DRG 773 ==
LOC: YASAS 11:29 → Y3N 14:55
PROVIDERS: ADMIT Internal Medicine; ATTEND Internal Medicine
PROC: HZ2ZZZZ Detoxification Services for Substance Abuse Treatment (ICD-10-PCS; principal; 2017-07-31)
DX: F11.23 Opioid dependence with withdrawal (principal); F10.230 Alcohol dependence with withdrawal, uncomplicated; F14.20 Cocaine dependence, uncomplicated; F17.210 Nicotine dependence, cigarettes, uncomplicated; F19.24 Other psychoactive substance dependence with psychoactive substance-induced mood disorder; F32.9 Major depressive disorder, single episode, unspecified; B18.2 Chronic viral hepatitis C
CPT/HCPCS: 36415; 80053; 81003; 85027; 86593; 87389; 93005; 93010

== ENCOUNTER 2017-08-05 12:26 | Inpatient (IN) | payer OTHER ==
--- NOTE | 2017-08-05 12:11 | HP ---
[facility] Rehab Assess/Revision - Admission History Admitted to Rehab from: [facility] Date of Admission to Rehab: 08/05/2017 - Vital signs Vital Signs: NOTED; STABLE. - Findings Detox History & Physical reviewed: Yes Concur with findings: Yes Comments/Additional Findings: PATIENT'S MEDICAL / MEDICATION HISTORY REVIEWED PRIOR TO DISCHARGE FROM DETOX UNIT. PATIENT WAS DISCHARGED FROM DETOX UNIT TO BE TAKEN TO REHAB UNIT IN STABLE MEDICAL CONDITION. Inpatient Rehab Admission - Initial Determination Are CD services needed?: Yes Free of communicable disease: Yes Not in need of hospitalization: Yes - Rehab Admission Criteria Previous failed treatment: Yes Comorbidities: Yes Patient is meeting Inpatient Rehab admission criteria:: Yes
[~2017-08-05 12:26] MED LIST changes: +ACETAMINOPHEN 325 MG TABLET (FP) PO PRN; +IBUPROFEN 400 MG TABLET (FP) PO PRN; +LOPERAMIDE HCL 2 MG CAPSULE PO PRN; +MAG HYDROX/AL HYDROX/SIMETH 30 ML UNIT-DOSE CUP PO PRN; +MAGNESIUM CITRATE 300 ML BOTTLE PO PRN; +MAGNESIUM HYDROX 2400MG/30ML ORAL SUSPENSION 30 ML CUP PO PRN; +MENTHOL/PHENOL 1 EACH UD MM PRN; -METHADONE HCL 5 MG TABLET PO ONE; +NICOTINE POLACRILEX 4 MG GUM BUC PRN; +P-EPHED 60MG/TRIPROLIDI 2.5MG TABLET PO PRN; +guaiFENesin/D-METHORPHAN HB 10 ML UNIT-DOSE CUPS PO PRN
[2017-08-05] MEDS: THIAMINE HCL 100 MG TABLET (FP) PO SCH (22:24)
[2017-08-05] MEDS: traZODone HCL 100 MG TABLET (FP) PO SCH (22:24)
[2017-08-06] MEDS: NICOTINE 21 MG/24 HOURS TOPICAL PATCH TD SCH (10:35)
[2017-08-06] MEDS: PRENATAL VITAMINS W/ FOLIC ACID TABLET (FP) PO SCH (10:35)
[2017-08-06] MEDS: SERTRALINE HCL 50 MG TABLET (FP) PO SCH (10:35)
[2017-08-06] MEDS: THIAMINE HCL 100 MG TABLET (FP) PO SCH (21:41)
[2017-08-06] MEDS: traZODone HCL 100 MG TABLET (FP) PO SCH (21:41)
[2017-08-07] MEDS: NICOTINE 21 MG/24 HOURS TOPICAL PATCH TD SCH (10:12)
[2017-08-07] MEDS: PRENATAL VITAMINS W/ FOLIC ACID TABLET (FP) PO SCH (10:13)
[2017-08-07] MEDS: SERTRALINE HCL 50 MG TABLET (FP) PO SCH (10:13)
[2017-08-07] MEDS: THIAMINE HCL 100 MG TABLET (FP) PO SCH (21:53)
[2017-08-07] MEDS: traZODone HCL 100 MG TABLET (FP) PO SCH (21:53)
[2017-08-08] MEDS: SERTRALINE HCL 50 MG TABLET (FP) PO SCH (10:11)
[2017-08-08] MEDS: PRENATAL VITAMINS W/ FOLIC ACID TABLET (FP) PO SCH (10:11)
[2017-08-08] MEDS: NICOTINE 21 MG/24 HOURS TOPICAL PATCH TD SCH (10:11)
--- NOTE | 2017-08-08 11:47 | PN ---
S Progress Note Note: please be advised that attending admission note was filled under 3N visit.
--- NOTE | 2017-08-08 12:04 | HP ---
Psychiatrist Admission - Data Date of interview: 08/06/17 Admission source: 6N Identifying data: This is the second 5N inpatient rehabilitaion admission for this 37 year old single Hiapnic male father of one, unemployed and domiciled, residing with his mother and supported by relatives. Allergies/Adverse Reactions: Medical History: Medical History: Treated for Hep C Psychiatric History: Patient reports history of treatment for anxiety and depression, currently on Zoloft 100 mg po daily and Trazodone 100 mg po hs, no history of psychiatric hospitalizations, seen by and continued his medications. Physical/Sexual Abuse/Trauma History: Denies history of sexual, physcal and verbal abuse. Vital Signs: Vital Signs - 24 hr 08/08/17 08/08/17 08/08/17 00:30 03:30 07:09 Temperature 97.3 F L Pulse Rate 84 Respiratory 18 18 18 Rate Blood Pressure 125/71 Allergies/Adverse Reactions: Allergies Allergy/AdvReac Type Severity Reaction Status Date / Time No Known Allergies Allergy Verified 08/05/17 12:58 Date of last physical exam: 07/31/17 Concur with the findings of this exam: Yes - Substance Abuse/Tx History Hx Alcohol Use: Yes (cognac,beer daily) Hx Substance Use: Yes (street methadone 40 mg daily) Substance Use Type: Cocaine (mixing with heroin $40 ), Heroin (20 bags daily IV use) Hx Substance Use Treatment: Yes Mental Status Exam - Mental Status Exam Alert and Oriented to: Time, Place, Person Cognitive Function: Good Patient Appearance: Well Groomed Mood: Anxious Affect: Appropriate, Mood Congruent Patient Behavior: Appropriate, Cooperative Speech Pattern: Clear, Appropriate Voice Loudness: Normal Thought Process: Intact, Goal Oriented Thought Disorder: Not Present Hallucinations: Denies Suicidal Ideation: Denies Homicidal Ideation: Denies Insight/Judgement: Fair Sleep: Fair Appetite: Fair Muscle strength/Tone: Normal Gait/Station: Normal Psychiatric Findings - Problem List ([place] 1, 2,3) (1) Cocaine dependence Current Visit: No Status: Acute (2) Drug-induced mood disorder Current Visit: No Status: Acute (3) Nicotine dependence Current Visit: No Status: Acute Qualifiers: Nicotine product type: cigarettes Substance use status: in withdrawal Qualified Code(s): F17.213 - Nicotine dependence, cigarettes, with withdrawal (4) Alcohol dependence Current Visit: No Status: Chronic (5) Opioid dependence Current Visit: No Status: Chronic - Initial Treatment Plan Initial Treatment Plan: will continue current medications, monitor progress as needed.
--- NOTE | 2017-08-08 16:05 | PN ---
[facility] Progress Note (SOAP) Subjective: concerned about head muscle spasm after using xtc, requesting ct scan head Objective: 08/08/17 16:04 Vital Signs - 24 hr 08/08/17 08/08/17 08/08/17 00:30 03:30 07:09 Temperature 97.3 F L Pulse Rate 84 Respiratory 18 18 18 Rate Blood Pressure 125/71 08/08/17 16:04 labs revewied with patient, facial exam [id number] Assessment: 08/08/17 16:05 no further treatment indicated, offered neurontin for muscle spasm, treated roberto white for hep c and cleared virus.
[2017-08-08] MEDS: traZODone HCL 100 MG TABLET (FP) PO SCH (22:15)
[2017-08-08] MEDS: THIAMINE HCL 100 MG TABLET (FP) PO SCH (22:15)
[2017-08-09] MEDS: SERTRALINE HCL 50 MG TABLET (FP) PO SCH (09:59)
[2017-08-09] MEDS: PRENATAL VITAMINS W/ FOLIC ACID TABLET (FP) PO SCH (09:59)
[2017-08-09] MEDS: NICOTINE 21 MG/24 HOURS TOPICAL PATCH TD SCH (09:59)
[2017-08-09] MEDS: hydrOXYzine PAMOATE 50 MG CAPSULE (FP) PO PRN (21:50)
[2017-08-09] MEDS: THIAMINE HCL 100 MG TABLET (FP) PO SCH (21:50)
[2017-08-09] MEDS: traZODone HCL 100 MG TABLET (FP) PO SCH (21:50)
[2017-08-10] MEDS: PRENATAL VITAMINS W/ FOLIC ACID TABLET (FP) PO SCH (10:07)
[2017-08-10] MEDS: SERTRALINE HCL 50 MG TABLET (FP) PO SCH (10:08)
[2017-08-10] MEDS: NICOTINE 21 MG/24 HOURS TOPICAL PATCH TD SCH (10:08)
[2017-08-10] MEDS: hydrOXYzine PAMOATE 50 MG CAPSULE (FP) PO PRN ×2 (10:08→21:39)
[2017-08-10] MEDS: THIAMINE HCL 100 MG TABLET (FP) PO SCH (21:39)
[2017-08-10] MEDS: traZODone HCL 100 MG TABLET (FP) PO SCH (21:39)
[2017-08-11] MEDS: SERTRALINE HCL 50 MG TABLET (FP) PO SCH (10:24)
[2017-08-11] MEDS: PRENATAL VITAMINS W/ FOLIC ACID TABLET (FP) PO SCH (10:24)
[2017-08-11] MEDS: NICOTINE 21 MG/24 HOURS TOPICAL PATCH TD SCH (10:24)
[2017-08-11] MEDS: traZODone HCL 100 MG TABLET (FP) PO SCH (21:43)
[2017-08-11] MEDS: THIAMINE HCL 100 MG TABLET (FP) PO SCH (21:43)
[2017-08-11] MEDS: hydrOXYzine PAMOATE 50 MG CAPSULE (FP) PO PRN (21:43)
[2017-08-12] MEDS: PRENATAL VITAMINS W/ FOLIC ACID TABLET (FP) PO SCH (10:09)
[2017-08-12] MEDS: NICOTINE 21 MG/24 HOURS TOPICAL PATCH TD SCH (10:09)
[2017-08-12] MEDS: SERTRALINE HCL 50 MG TABLET (FP) PO SCH (10:09)
[2017-08-12] MEDS: THIAMINE HCL 100 MG TABLET (FP) PO SCH (21:28)
[2017-08-12] MEDS: traZODone HCL 100 MG TABLET (FP) PO SCH (21:28)
[2017-08-13] MEDS: hydrOXYzine PAMOATE 50 MG CAPSULE (FP) PO PRN ×2 (00:37→19:10)
[2017-08-13] MEDS: SERTRALINE HCL 50 MG TABLET (FP) PO SCH (10:33)
[2017-08-13] MEDS: PRENATAL VITAMINS W/ FOLIC ACID TABLET (FP) PO SCH (10:33)
[2017-08-13] MEDS: NICOTINE 21 MG/24 HOURS TOPICAL PATCH TD SCH (10:33)
[2017-08-13] MEDS: traZODone HCL 100 MG TABLET (FP) PO SCH (21:36)
[2017-08-13] MEDS: THIAMINE HCL 100 MG TABLET (FP) PO SCH (21:36)
[2017-08-14 06:25] VITALS: BP 108/62; PULSE 77; TEMP 97.8
[2017-08-14] MEDS: NICOTINE 21 MG/24 HOURS TOPICAL PATCH TD SCH (10:34)
[2017-08-14] MEDS: SERTRALINE HCL 50 MG TABLET (FP) PO SCH (10:35)
[2017-08-14] MEDS: PRENATAL VITAMINS W/ FOLIC ACID TABLET (FP) PO SCH (10:35)
[2017-08-14] MEDS: hydrOXYzine PAMOATE 50 MG CAPSULE (FP) PO PRN (10:36)
--- NOTE | 2017-08-15 08:22 | PN ---
Psychiatric Progress Note Date of Session: 08/14/17 (patient was seen on 08/14 progress notes filled on ) Chief Complaint:: discharge visit HPI: Patient has addressed alcohol, cocaine, opiod, nicotine dependence comorbid substance insuced mood disorder. ROS: Hep C. Current Side Effect: No Lab tests ordered: No Lab tests reviewed: Yes Provider note:: Patient has compelted today his treatment and met his goals, will continue to address his issues at [facility]. Patient gained insights into his addiction and motivated to continue maintain abstinence, he understands the negative consequences of his addiction on his major life areas including legal issues. Patient responded well to medcations, no side-effects reported, scripts provided, patient is stable for discharge today. Total face to face time:: 30 Mental Status Exam - Mental Status Exam Alert and Oriented to: Time, Place, Person Cognitive Function: Grossly Intact Patient Appearance: Well Groomed Mood: Hopeful Affect: Appropriate, Mood Congruent, Normal Range Patient Behavior: Appropriate, Cooperative Speech Pattern: Clear, Appropriate Voice Loudness: Normal Thought Process: Intact, Goal Oriented Thought Disorder: Not Present Hallucinations: Denies Suicidal Ideation: Denies Homicidal Ideation: Denies Insight/Judgement: Fair Sleep: Fair Appetite: Good Muscle strength/Tone: Normal Gait/Station: Normal Psychiatric Treatment Plan - Problem List (3) Nicotine dependence Qualifiers: Nicotine product type: cigarettes Substance use status: in withdrawal Qualified Code(s): F17.213 - Nicotine dependence, cigarettes, with withdrawal
== END 2017-08-14 14:35 | disposition home or self-care (01) | DRG 772 ==
LOC: YASAS 12:26 → Y5N 12:27
PROVIDERS: ADMIT Psychiatry & Neurology Psychiatry; ATTEND Psychiatry & Neurology Psychiatry
PROC: HZ42ZZZ Group Counseling for Substance Abuse Treatment, Cognitive-Behavioral (ICD-10-PCS; principal; 2017-08-05)
DX: F14.20 Cocaine dependence, uncomplicated (principal); F17.213 Nicotine dependence, cigarettes, with withdrawal; F19.24 Other psychoactive substance dependence with psychoactive substance-induced mood disorder; L03.114 Cellulitis of left upper limb; Z87.898 Personal history of other specified conditions; Z86.718 Personal history of other venous thrombosis and embolism

== ENCOUNTER 2022-02-12 17:26 | Inpatient (IN) | payer OTHER ==
[2022-02-12 20:06] VITALS: BMI 27.1
[2022-02-12] MEDS ORDERED: ACETAMINOPHEN 325 MG TABLET (FP) PO PRN ×2 (21:32)
[2022-02-12] MEDS ORDERED: DICYCLOMINE HCL 10 MG CAPSULE PO PRN (21:32)
[2022-02-12] MEDS ORDERED: NICOTINE 10 MG CARTRIDGE (INHALER) IH PRN (21:32)
[2022-02-12] MEDS ORDERED: MAG HYDROX/AL HYDROX/SIMETH 30 ML UNIT-DOSE CUP PO PRN (21:32)
[2022-02-12] MEDS ORDERED: LOPERAMIDE HCL 2 MG CAPSULE PO PRN (21:32)
[2022-02-12] MEDS ORDERED: BISMUTH SUBSALICYLATE 524 MG/30 ML PO PRN (21:32)
[2022-02-12] MEDS ORDERED: ONDANSETRON *ODT* 4 MG TABLET SL PRN (21:32)
[2022-02-12] MEDS ORDERED: NICOTINE POLACRILEX 2 MG GUM BUC PRN (21:32)
[2022-02-12] MEDS ORDERED: IBUPROFEN 400 MG TABLET (FP) PO PRN (21:32)
[2022-02-12] MEDS ORDERED: MAGNESIUM HYDROX 2400MG/30ML ORAL SUSPENSION 30 ML CUP PO PRN (21:32)
[2022-02-12] MEDS ORDERED: MAGNESIUM CITRATE 300 ML BOTTLE PO PRN (21:32)
[2022-02-12] MEDS ORDERED: BENZOCAINE/MENTHOL (CHLORASEPTIC ) LOZENGE MM PRN (21:32)
[2022-02-12] MEDS ORDERED: IBUPROFEN 600 MG TABLET (FP) PO PRN (21:32)
[2022-02-13] MEDS: SULFAMETHOXAZOLE/TRIMETHOPRIM 800MG/160MG D.S. TABLET PO SCH ×3 (01:17→23:01)
[2022-02-13] MEDS: THIAMINE HCL 100 MG TABLET (FP) PO SCH ×2 (01:18→23:01)
[2022-02-13] MEDS: METHOCARBAMOL 500 MG TABLET PO PRN (06:25)
[2022-02-13] MEDS: hydrOXYzine PAMOATE 25 MG CAPSULE (FP) PO PRN (06:25)
[2022-02-13] MEDS ORDERED: methaDONE HCL 10 MG TABLET PO ONE (08:43)
[2022-02-13] MEDS ORDERED: methaDONE HCL 40 MG DISPERSABLE TABLET PO ONE (09:30)
[2022-02-13] MEDS ORDERED: NICOTINE 7 MG/24 HOURS TOPICAL PATCH TD SCH (10:00)
[2022-02-13] MEDS: PRENATAL VITAMINS W/ FOLIC ACID TABLET (FP) PO SCH (10:49)
[2022-02-13] MEDS: NICOTINE 21 MG/24 HOURS TOPICAL PATCH TD SCH (11:46)
[2022-02-13 12:04] LABS: HEMATOCRIT 37.8 % (35.4-49); HEMOGLOBIN 12.6 GM/dL (11.7-16.9); MCH 28.3 pg (25.7-33.7); MCHC 33.4 g/dl (32.0-35.9); MEAN CELL VOLUME 84.7 fl (80-96); MEAN PLT VOLUME 9.3 fl (7.5-11.1); PLATELET COUNT 289 10^3/uL (134-434); RBC 4.46 M/mm3 (4.00-5.60); WHITE BLOOD COUNT 6.9 K/mm3 (4.0-10.0)
[2022-02-13 12:07] LABS: CALCIUM 8.9 mg/dL (8.5-10.1)
[2022-02-13 12:08] LABS: ALBUMIN 3.4 g/dl (3.4-5.0); BLOOD UREA NITROGEN 8.3 mg/dL (7-18)
[2022-02-13 12:09] LABS: CREATININE 0.8 mg/dL (0.55-1.3)
[2022-02-13 12:10] LABS: BILIRUBIN,TOTAL 0.3 mg/dL (0.2-1); TOT PROT 7.2 g/dl (6.4-8.2)
[2022-02-14] MEDS ORDERED: methaDONE HCL 10 MG TABLET ONE ×2 (04:19→05:22)
[2022-02-14] MEDS ORDERED: methaDONE HCL 40 MG DISPERSABLE TABLET ONE ×2 (04:19→05:22)
[2022-02-14] MEDS ORDERED: methaDONE HCL 10 MG TABLET PO ONE (06:00)
[2022-02-14] MEDS ORDERED: methaDONE 40 MG, methaDONE 10 MG PO ONE (06:00)
[2022-02-14] MEDS ORDERED: methaDONE HCL 40 MG DISPERSABLE TABLET PO SCH (06:00)
[2022-02-14] MEDS ORDERED: diazePAM 5 MG TABLET PO PRN (08:40)
[2022-02-14] MEDS: PRENATAL VITAMINS W/ FOLIC ACID TABLET (FP) PO SCH (10:31)
[2022-02-14] MEDS: METHOCARBAMOL 500 MG TABLET PO PRN (10:31)
[2022-02-14] MEDS: NICOTINE 21 MG/24 HOURS TOPICAL PATCH TD SCH (10:31)
[2022-02-14] MEDS: hydrOXYzine PAMOATE 25 MG CAPSULE (FP) PO PRN (10:31)
[2022-02-14] MEDS: SULFAMETHOXAZOLE/TRIMETHOPRIM 800MG/160MG D.S. TABLET PO SCH ×2 (10:31→22:47)
[2022-02-14] MEDS: diazePAM 5 MG TABLET PO SCH ×2 (17:48→22:46)
[2022-02-14] MEDS: THIAMINE HCL 100 MG TABLET (FP) PO SCH (22:46)
[2022-02-14] MEDS: MELATONIN 5 MG TABLETS PO PRN (22:46)
[2022-02-15] MEDS ORDERED: methaDONE HCL 40 MG DISPERSABLE TABLET ONE (04:25)
[2022-02-15] MEDS ORDERED: methaDONE HCL 10 MG TABLET ONE (04:25)
[2022-02-15] MEDS: diazePAM 5 MG TABLET PO SCH ×3 (05:12→22:08)
[2022-02-15] MEDS ORDERED: methaDONE 40 MG, methaDONE 20 MG PO ONE (06:00)
[2022-02-15] MEDS ORDERED: methaDONE HCL 10 MG TABLET PO ONE (06:00)
[2022-02-15] MEDS: hydrOXYzine PAMOATE 25 MG CAPSULE (FP) PO PRN (10:34)
[2022-02-15] MEDS: SULFAMETHOXAZOLE/TRIMETHOPRIM 800MG/160MG D.S. TABLET PO SCH ×2 (10:34→22:09)
[2022-02-15] MEDS: PRENATAL VITAMINS W/ FOLIC ACID TABLET (FP) PO SCH (10:34)
[2022-02-15] MEDS: NICOTINE 21 MG/24 HOURS TOPICAL PATCH TD SCH (10:35)
[2022-02-15] MEDS: MELATONIN 5 MG TABLETS PO PRN (22:08)
[2022-02-15] MEDS: THIAMINE HCL 100 MG TABLET (FP) PO SCH (22:08)
[2022-02-16] MEDS ORDERED: methaDONE HCL 10 MG TABLET ONE (04:35)
[2022-02-16] MEDS ORDERED: methaDONE HCL 40 MG DISPERSABLE TABLET ONE (04:36)
[2022-02-16] MEDS ORDERED: methaDONE 40 MG, methaDONE 30 MG PO ONE (06:00)
[2022-02-16] MEDS ORDERED: methaDONE HCL 10 MG TABLET PO ONE (06:00)
[2022-02-16] MEDS: diazePAM 5 MG TABLET PO SCH ×2 (06:12→18:13)
[2022-02-16] MEDS: SULFAMETHOXAZOLE/TRIMETHOPRIM 800MG/160MG D.S. TABLET PO SCH ×2 (10:31→22:52)
[2022-02-16] MEDS: hydrOXYzine PAMOATE 25 MG CAPSULE (FP) PO PRN ×3 (10:31→22:52)
[2022-02-16] MEDS: NICOTINE 21 MG/24 HOURS TOPICAL PATCH TD SCH (10:31)
[2022-02-16] MEDS: METHOCARBAMOL 500 MG TABLET PO PRN (10:31)
[2022-02-16] MEDS: PRENATAL VITAMINS W/ FOLIC ACID TABLET (FP) PO SCH (10:31)
[2022-02-16] MEDS: MELATONIN 5 MG TABLETS PO PRN (22:52)
[2022-02-16] MEDS: THIAMINE HCL 100 MG TABLET (FP) PO SCH (22:52)
[2022-02-17] MEDS ORDERED: diazePAM 5 MG TABLET PO ONE (06:00)
[2022-02-17] MEDS ORDERED: methaDONE HCL 40 MG DISPERSABLE TABLET PO ONE (06:00)
[2022-02-17 06:11] VITALS: PULSE 60
[2022-02-17 09:28] VITALS: BP 123/55; TEMP 97.7
[2022-02-17] MEDS: PRENATAL VITAMINS W/ FOLIC ACID TABLET (FP) PO SCH (10:00)
[2022-02-17] MEDS: hydrOXYzine PAMOATE 25 MG CAPSULE (FP) PO PRN (10:00)
[2022-02-17] MEDS: SULFAMETHOXAZOLE/TRIMETHOPRIM 800MG/160MG D.S. TABLET PO SCH (10:00)
[2022-02-17] MEDS: NICOTINE 21 MG/24 HOURS TOPICAL PATCH TD SCH (10:00)
== END 2022-02-17 14:23 | disposition other institution (70) | DRG 773 ==
LOC: YASAS 17:26 → Y6N 22:33 → UNDODISIN 02-16 18:30
PROVIDERS: ADMIT Allergy & Immunology; ATTEND Surgery
PROC: HZ2ZZZZ Detoxification Services for Substance Abuse Treatment (ICD-10-PCS; principal; 2022-02-12)
DX: F10.230 Alcohol dependence with withdrawal, uncomplicated (principal); F11.20 Opioid dependence, uncomplicated; F14.20 Cocaine dependence, uncomplicated; F17.213 Nicotine dependence, cigarettes, with withdrawal; Z86.19 Personal history of other infectious and parasitic diseases; Z59.00 Homelessness unspecified
CPT/HCPCS: 36415; 80053; 85027; 86780; 87811; C9803-CS; U0003; U0005

== ENCOUNTER 2022-02-17 11:54 | Inpatient (IN) | payer OTHER ==
[2022-02-17] MEDS ORDERED: guaiFENesin 200 MG/10 ML 10 ML UNIT-DOSE CUPS PO PRN ×2 (13:09→13:11)
[2022-02-17] MEDS ORDERED: NICOTINE POLACRILEX 2 MG GUM BUC PRN (13:09)
[2022-02-17] MEDS ORDERED: P-EPHED 60MG/TRIPROLIDI 2.5MG TABLET PO PRN ×2 (13:09→13:11)
[2022-02-17] MEDS ORDERED: IBUPROFEN 400 MG TABLET (FP) PO PRN (13:09)
[2022-02-17] MEDS ORDERED: LOPERAMIDE HCL 2 MG CAPSULE PO PRN ×2 (13:09→13:11)
[2022-02-17] MEDS ORDERED: ACETAMINOPHEN 325 MG TABLET (FP) PO PRN (13:09)
[2022-02-17] MEDS ORDERED: MAGNESIUM HYDROX 2400MG/30ML ORAL SUSPENSION 30 ML CUP PO PRN ×2 (13:09→13:11)
[2022-02-17] MEDS ORDERED: MAG HYDROX/AL HYDROX/SIMETH 30 ML UNIT-DOSE CUP PO PRN ×2 (13:09→13:11)
[2022-02-17] MEDS ORDERED: MAGNESIUM CITRATE 300 ML BOTTLE PO PRN ×2 (13:09→13:11)
[2022-02-17] MEDS: NICOTINE 7 MG/24 HOURS TOPICAL PATCH TD SCH (14:23)
[2022-02-17] MEDS: hydrOXYzine PAMOATE 25 MG CAPSULE (FP) PO SCH ×3 (14:23→21:48)
[2022-02-17] MEDS: PRENATAL VITAMINS W/ FOLIC ACID TABLET (FP) PO SCH (14:23)
[2022-02-17] MEDS: THIAMINE HCL 100 MG TABLET (FP) PO SCH (21:47)
[2022-02-17] MEDS: SULFAMETHOXAZOLE/TRIMETHOPRIM 800MG/160MG D.S. TABLET PO SCH (21:47)
[2022-02-17] MEDS ORDERED: MELATONIN 5 MG TABLETS PO SCH ×2 (22:00)
[2022-02-18] MEDS: hydrOXYzine PAMOATE 25 MG CAPSULE (FP) PO SCH ×2 (06:40→10:13)
[2022-02-18] MEDS ORDERED: methaDONE HCL 10 MG TABLET PO ONE (09:41)
[2022-02-18] MEDS: methaDONE HCL 40 MG DISPERSABLE TABLET PO SCH (10:12)
[2022-02-18] MEDS: PRENATAL VITAMINS W/ FOLIC ACID TABLET (FP) PO SCH ×2 (10:13→10:14)
[2022-02-18] MEDS: SULFAMETHOXAZOLE/TRIMETHOPRIM 800MG/160MG D.S. TABLET PO SCH ×2 (10:13→21:24)
[2022-02-18] MEDS: PETROLATUM, WHITE 30 GM TUBE TP SCH (10:14)
[2022-02-18] MEDS: NICOTINE 7 MG/24 HOURS TOPICAL PATCH TD SCH ×2 (10:15→11:22)
[2022-02-18] MEDS: NICOTINE 10 MG CARTRIDGE (INHALER) IH PRN (12:32)
[2022-02-18 14:37] LABS: PH,URINE 5.5 (5.0-8.0); URINE APPEARANCE CLEAR; URINE BILIRUBIN NEGATIVE (NEGATIVE); URINE COLOR YELLOW; URINE GLUCOSE (UA) NEGATIVE (NEGATIVE); URINE KETONE NEGATIVE (NEGATIVE); URINE LEUK ESTERASE NEGATIVE (NEGATIVE); URINE NITRITE NEGATIVE (NEGATIVE); URINE PROTEIN NEGATIVE (NEGATIVE); URINE UROBILINOGEN 0.2 mg/dL (0.2-1.0)
[2022-02-18] MEDS: MELATONIN 5 MG TABLETS PO SCH (21:24)
[2022-02-18] MEDS: THIAMINE HCL 100 MG TABLET (FP) PO SCH (21:24)
[2022-02-19] MEDS: methaDONE HCL 40 MG DISPERSABLE TABLET PO SCH (06:25)
[2022-02-19] MEDS: NICOTINE 10 MG CARTRIDGE (INHALER) IH PRN (06:26)
[2022-02-19] MEDS: SULFAMETHOXAZOLE/TRIMETHOPRIM 800MG/160MG D.S. TABLET PO SCH (09:56)
[2022-02-19] MEDS: PRENATAL VITAMINS W/ FOLIC ACID TABLET (FP) PO SCH ×2 (09:57→10:54)
[2022-02-19] MEDS ORDERED: NICOTINE 14 MG/24 HOURS TOPICAL PATCH TD SCH (10:22)
[2022-02-19] MEDS: NICOTINE 14 MG/24 HOURS TOPICAL PATCH TD SCH (10:34)
[2022-02-19] MEDS: PETROLATUM, WHITE 30 GM TUBE TP SCH (10:34)
[2022-02-19] MEDS: NICOTINE 7 MG/24 HOURS TOPICAL PATCH TD SCH (10:54)
[2022-02-19] MEDS: VITAMINS A AND D TOPICAL OINTMENT 60 GM TUBE TP SCH (11:56)
[2022-02-19] MEDS: THIAMINE HCL 100 MG TABLET (FP) PO SCH (21:12)
[2022-02-19] MEDS: MELATONIN 5 MG TABLETS PO SCH (21:12)
[2022-02-20] MEDS: methaDONE HCL 40 MG DISPERSABLE TABLET PO SCH (06:17)
[2022-02-20] MEDS: NICOTINE 10 MG CARTRIDGE (INHALER) IH PRN (08:38)
[2022-02-20] MEDS: PRENATAL VITAMINS W/ FOLIC ACID TABLET (FP) PO SCH (09:33)
[2022-02-20] MEDS: NICOTINE 14 MG/24 HOURS TOPICAL PATCH TD SCH (09:33)
[2022-02-20] MEDS: VITAMINS A AND D TOPICAL OINTMENT 60 GM TUBE TP SCH (09:33)
[2022-02-20] MEDS: PETROLATUM, WHITE 30 GM TUBE TP SCH (09:34)
[2022-02-20] MEDS: MELATONIN 5 MG TABLETS PO SCH (21:15)
[2022-02-20] MEDS: THIAMINE HCL 100 MG TABLET (FP) PO SCH (21:15)
[2022-02-20] MEDS: SUVOREXANT 10 MG TABLET PO PRN (21:16)
[2022-02-21] MEDS: methaDONE HCL 40 MG DISPERSABLE TABLET PO SCH (06:17)
[2022-02-21] MEDS: PETROLATUM, WHITE 30 GM TUBE TP SCH (09:40)
[2022-02-21] MEDS: NICOTINE 10 MG CARTRIDGE (INHALER) IH PRN (09:41)
[2022-02-21] MEDS: PRENATAL VITAMINS W/ FOLIC ACID TABLET (FP) PO SCH (09:41)
[2022-02-21] MEDS: VITAMINS A AND D TOPICAL OINTMENT 60 GM TUBE TP SCH (09:41)
[2022-02-21] MEDS: NICOTINE 14 MG/24 HOURS TOPICAL PATCH TD SCH (09:42)
[2022-02-21] MEDS: MELATONIN 5 MG TABLETS PO SCH (21:43)
[2022-02-21] MEDS: SUVOREXANT 10 MG TABLET PO PRN (21:44)
[2022-02-21] MEDS: THIAMINE HCL 100 MG TABLET (FP) PO SCH (21:44)
[2022-02-22] MEDS: methaDONE HCL 40 MG DISPERSABLE TABLET PO SCH (06:09)
[2022-02-22] MEDS: PRENATAL VITAMINS W/ FOLIC ACID TABLET (FP) PO SCH (09:55)
[2022-02-22] MEDS: NICOTINE 10 MG CARTRIDGE (INHALER) IH PRN (09:56)
[2022-02-22] MEDS: NICOTINE 14 MG/24 HOURS TOPICAL PATCH TD SCH (09:57)
[2022-02-22] MEDS: PETROLATUM, WHITE 30 GM TUBE TP SCH (09:57)
[2022-02-22] MEDS: VITAMINS A AND D TOPICAL OINTMENT 60 GM TUBE TP SCH (09:57)
[2022-02-22] MEDS: THIAMINE HCL 100 MG TABLET (FP) PO SCH (21:40)
[2022-02-22] MEDS: MIRTAZAPINE 15 MG TABLET (FP) PO SCH (21:41)
[2022-02-22] MEDS ORDERED: SUVOREXANT 15 MG TABLET PO PRN (22:00)
[2022-02-22] MEDS ORDERED: SUVOREXANT 10 MG TABLET PO PRN (22:00)
[2022-02-23] MEDS: methaDONE HCL 40 MG DISPERSABLE TABLET PO SCH (06:20)
[2022-02-23] MEDS: PRENATAL VITAMINS W/ FOLIC ACID TABLET (FP) PO SCH (09:30)
[2022-02-23] MEDS: NICOTINE 14 MG/24 HOURS TOPICAL PATCH TD SCH (09:31)
[2022-02-23] MEDS: PETROLATUM, WHITE 30 GM TUBE TP SCH (09:31)
[2022-02-23] MEDS: VITAMINS A AND D TOPICAL OINTMENT 60 GM TUBE TP SCH (09:31)
[2022-02-23] MEDS: NICOTINE 10 MG CARTRIDGE (INHALER) IH PRN (09:32)
[2022-02-23] MEDS: MIRTAZAPINE 15 MG TABLET (FP) PO SCH (21:09)
[2022-02-23] MEDS: THIAMINE HCL 100 MG TABLET (FP) PO SCH (21:09)
[2022-02-24] MEDS: methaDONE HCL 40 MG DISPERSABLE TABLET PO SCH (06:16)
[2022-02-24] MEDS: NICOTINE 10 MG CARTRIDGE (INHALER) IH PRN (09:53)
[2022-02-24] MEDS: VITAMINS A AND D TOPICAL OINTMENT 60 GM TUBE TP SCH (09:54)
[2022-02-24] MEDS: NICOTINE 14 MG/24 HOURS TOPICAL PATCH TD SCH (09:54)
[2022-02-24] MEDS: PRENATAL VITAMINS W/ FOLIC ACID TABLET (FP) PO SCH (09:54)
[2022-02-24] MEDS: PETROLATUM, WHITE 30 GM TUBE TP SCH (09:55)
[2022-02-24] MEDS: MIRTAZAPINE 15 MG TABLET (FP) PO SCH (21:17)
[2022-02-24] MEDS: THIAMINE HCL 100 MG TABLET (FP) PO SCH (21:17)
[2022-02-25] MEDS: methaDONE HCL 40 MG DISPERSABLE TABLET PO SCH (06:25)
[2022-02-25] MEDS: NICOTINE 14 MG/24 HOURS TOPICAL PATCH TD SCH (09:55)
[2022-02-25] MEDS: PRENATAL VITAMINS W/ FOLIC ACID TABLET (FP) PO SCH (09:56)
[2022-02-25] MEDS: VITAMINS A AND D TOPICAL OINTMENT 60 GM TUBE TP SCH (09:56)
[2022-02-25] MEDS: PETROLATUM, WHITE 30 GM TUBE TP SCH (09:56)
[2022-02-25] MEDS: NICOTINE 10 MG CARTRIDGE (INHALER) IH PRN (09:57)
[2022-02-25] MEDS: THIAMINE HCL 100 MG TABLET (FP) PO SCH (21:27)
[2022-02-25] MEDS: MIRTAZAPINE 15 MG TABLET (FP) PO SCH (21:27)
[2022-02-26] MEDS: methaDONE HCL 40 MG DISPERSABLE TABLET PO SCH (06:53)
[2022-02-26] MEDS: PRENATAL VITAMINS W/ FOLIC ACID TABLET (FP) PO SCH (09:41)
[2022-02-26] MEDS: NICOTINE 14 MG/24 HOURS TOPICAL PATCH TD SCH (09:41)
[2022-02-26] MEDS: NICOTINE 10 MG CARTRIDGE (INHALER) IH PRN (09:42)
[2022-02-26] MEDS: PETROLATUM, WHITE 30 GM TUBE TP SCH (11:35)
[2022-02-26] MEDS: VITAMINS A AND D TOPICAL OINTMENT 60 GM TUBE TP SCH (11:35)
[2022-02-26] MEDS: MIRTAZAPINE 15 MG TABLET (FP) PO SCH (21:22)
[2022-02-26] MEDS: THIAMINE HCL 100 MG TABLET (FP) PO SCH (21:22)
[2022-02-26] MEDS: DOCUSATE SODIUM 100 MG CAPSULE (FP) PO SCH (21:24)
[2022-02-27] MEDS: methaDONE HCL 40 MG DISPERSABLE TABLET PO SCH (06:26)
[2022-02-27] MEDS: NICOTINE 14 MG/24 HOURS TOPICAL PATCH TD SCH (09:35)
[2022-02-27] MEDS: PRENATAL VITAMINS W/ FOLIC ACID TABLET (FP) PO SCH (09:35)
[2022-02-27] MEDS: PETROLATUM, WHITE 30 GM TUBE TP SCH (09:36)
[2022-02-27] MEDS: NICOTINE 10 MG CARTRIDGE (INHALER) IH PRN (09:36)
[2022-02-27] MEDS: VITAMINS A AND D TOPICAL OINTMENT 60 GM TUBE TP SCH (09:42)
[2022-02-27] MEDS: THIAMINE HCL 100 MG TABLET (FP) PO SCH (21:08)
[2022-02-27] MEDS: DOCUSATE SODIUM 100 MG CAPSULE (FP) PO SCH (21:09)
[2022-02-27] MEDS: MIRTAZAPINE 15 MG TABLET (FP) PO SCH (21:09)
[2022-02-28] MEDS: methaDONE HCL 40 MG DISPERSABLE TABLET PO SCH (06:06)
[2022-02-28] MEDS: PRENATAL VITAMINS W/ FOLIC ACID TABLET (FP) PO SCH (09:48)
[2022-02-28] MEDS: NICOTINE 14 MG/24 HOURS TOPICAL PATCH TD SCH (09:48)
[2022-02-28] MEDS: NICOTINE 10 MG CARTRIDGE (INHALER) IH PRN (09:49)
[2022-02-28] MEDS: VITAMINS A AND D TOPICAL OINTMENT 60 GM TUBE TP SCH (09:49)
[2022-02-28] MEDS: PETROLATUM, WHITE 30 GM TUBE TP SCH (09:50)
[2022-02-28] MEDS: DOCUSATE SODIUM 100 MG CAPSULE (FP) PO SCH (21:11)
[2022-02-28] MEDS: THIAMINE HCL 100 MG TABLET (FP) PO SCH (21:11)
[2022-02-28] MEDS: MIRTAZAPINE 15 MG TABLET (FP) PO SCH (21:11)
[2022-03-01] MEDS: methaDONE HCL 40 MG DISPERSABLE TABLET PO SCH (06:13)
[2022-03-01] MEDS: NICOTINE 14 MG/24 HOURS TOPICAL PATCH TD SCH (10:15)
[2022-03-01] MEDS: NICOTINE 10 MG CARTRIDGE (INHALER) IH PRN (10:15)
[2022-03-01] MEDS: PRENATAL VITAMINS W/ FOLIC ACID TABLET (FP) PO SCH (10:15)
[2022-03-01] MEDS: PETROLATUM, WHITE 30 GM TUBE TP SCH (10:16)
[2022-03-01] MEDS: VITAMINS A AND D TOPICAL OINTMENT 60 GM TUBE TP SCH (10:16)
[2022-03-01] MEDS: THIAMINE HCL 100 MG TABLET (FP) PO SCH (21:36)
[2022-03-01] MEDS: DOCUSATE SODIUM 100 MG CAPSULE (FP) PO SCH (21:36)
[2022-03-01] MEDS: MIRTAZAPINE 15 MG TABLET (FP) PO SCH (21:36)
[2022-03-02] MEDS: methaDONE HCL 40 MG DISPERSABLE TABLET PO SCH (06:05)
[2022-03-02] MEDS: PRENATAL VITAMINS W/ FOLIC ACID TABLET (FP) PO SCH (09:38)
[2022-03-02] MEDS: NICOTINE 14 MG/24 HOURS TOPICAL PATCH TD SCH (09:47)
[2022-03-02] MEDS: NICOTINE 10 MG CARTRIDGE (INHALER) IH PRN (09:47)
[2022-03-02] MEDS: PETROLATUM, WHITE 30 GM TUBE TP SCH (09:48)
[2022-03-02] MEDS: VITAMINS A AND D TOPICAL OINTMENT 60 GM TUBE TP SCH (09:48)
[2022-03-02] MEDS: DOCUSATE SODIUM 100 MG CAPSULE (FP) PO SCH (21:08)
[2022-03-02] MEDS: MIRTAZAPINE 15 MG TABLET (FP) PO SCH (21:08)
[2022-03-02] MEDS: THIAMINE HCL 100 MG TABLET (FP) PO SCH (21:08)
[2022-03-03] MEDS: methaDONE HCL 40 MG DISPERSABLE TABLET PO SCH (06:29)
[2022-03-03] MEDS: PRENATAL VITAMINS W/ FOLIC ACID TABLET (FP) PO SCH (10:14)
[2022-03-03] MEDS: NICOTINE 10 MG CARTRIDGE (INHALER) IH PRN (10:14)
[2022-03-03] MEDS: NICOTINE 14 MG/24 HOURS TOPICAL PATCH TD SCH (10:14)
[2022-03-03] MEDS: PETROLATUM, WHITE 30 GM TUBE TP SCH (10:15)
[2022-03-03] MEDS: VITAMINS A AND D TOPICAL OINTMENT 60 GM TUBE TP SCH (10:15)
[2022-03-03] MEDS: MIRTAZAPINE 15 MG TABLET (FP) PO SCH (21:13)
[2022-03-03] MEDS: DOCUSATE SODIUM 100 MG CAPSULE (FP) PO SCH (21:13)
[2022-03-03] MEDS: THIAMINE HCL 100 MG TABLET (FP) PO SCH (21:14)
[2022-03-04] MEDS: methaDONE HCL 40 MG DISPERSABLE TABLET PO SCH (06:15)
[2022-03-04] MEDS: PRENATAL VITAMINS W/ FOLIC ACID TABLET (FP) PO SCH (09:55)
[2022-03-04] MEDS: NICOTINE 14 MG/24 HOURS TOPICAL PATCH TD SCH (09:56)
[2022-03-04] MEDS: NICOTINE 10 MG CARTRIDGE (INHALER) IH PRN (09:57)
[2022-03-04] MEDS: PETROLATUM, WHITE 30 GM TUBE TP SCH (09:58)
[2022-03-04] MEDS: VITAMINS A AND D TOPICAL OINTMENT 60 GM TUBE TP SCH (09:59)
[2022-03-04] MEDS ORDERED: KETOCONAZOLE 2% CREAM - 60GM TUBE TP SCH (10:00)
[2022-03-04] MEDS: TOLNAFTATE 1% CREAM 15 GM TUBE TP SCH ×2 (11:57→21:17)
[2022-03-04] MEDS: THIAMINE HCL 100 MG TABLET (FP) PO SCH (21:16)
[2022-03-04] MEDS: DOCUSATE SODIUM 100 MG CAPSULE (FP) PO SCH (21:16)
[2022-03-04] MEDS: MIRTAZAPINE 15 MG TABLET (FP) PO SCH (21:17)
[2022-03-05] MEDS: methaDONE HCL 40 MG DISPERSABLE TABLET PO SCH (06:15)
[2022-03-05] MEDS: NICOTINE 10 MG CARTRIDGE (INHALER) IH PRN (10:18)
[2022-03-05] MEDS: NICOTINE 14 MG/24 HOURS TOPICAL PATCH TD SCH (10:19)
[2022-03-05] MEDS: TOLNAFTATE 1% CREAM 15 GM TUBE TP SCH ×2 (10:19→21:38)
[2022-03-05] MEDS: PRENATAL VITAMINS W/ FOLIC ACID TABLET (FP) PO SCH (10:19)
[2022-03-05] MEDS: PETROLATUM, WHITE 30 GM TUBE TP SCH (10:20)
[2022-03-05] MEDS: VITAMINS A AND D TOPICAL OINTMENT 60 GM TUBE TP SCH (10:20)
[2022-03-05] MEDS: IBUPROFEN 400 MG TABLET (FP) PO PRN ×2 (14:17→21:39)
[2022-03-05] MEDS: THIAMINE HCL 100 MG TABLET (FP) PO SCH (21:36)
[2022-03-05] MEDS: DOCUSATE SODIUM 100 MG CAPSULE (FP) PO SCH (21:37)
[2022-03-05] MEDS: MIRTAZAPINE 15 MG TABLET (FP) PO SCH (21:37)
[2022-03-06] MEDS: methaDONE HCL 40 MG DISPERSABLE TABLET PO SCH (06:14)
[2022-03-06] MEDS: PRENATAL VITAMINS W/ FOLIC ACID TABLET (FP) PO SCH (09:48)
[2022-03-06] MEDS: NICOTINE 10 MG CARTRIDGE (INHALER) IH PRN (09:48)
[2022-03-06] MEDS: NICOTINE 14 MG/24 HOURS TOPICAL PATCH TD SCH (09:48)
[2022-03-06] MEDS: VITAMINS A AND D TOPICAL OINTMENT 60 GM TUBE TP SCH (09:50)
[2022-03-06] MEDS: TOLNAFTATE 1% CREAM 15 GM TUBE TP SCH ×2 (09:50→21:14)
[2022-03-06] MEDS: PETROLATUM, WHITE 30 GM TUBE TP SCH (09:50)
[2022-03-06] MEDS: THIAMINE HCL 100 MG TABLET (FP) PO SCH (21:13)
[2022-03-06] MEDS: DOCUSATE SODIUM 100 MG CAPSULE (FP) PO SCH (21:13)
[2022-03-06] MEDS: MIRTAZAPINE 15 MG TABLET (FP) PO SCH (21:13)
[2022-03-07] MEDS: methaDONE HCL 40 MG DISPERSABLE TABLET PO SCH (06:19)
[2022-03-07] MEDS: NICOTINE 10 MG CARTRIDGE (INHALER) IH PRN (09:55)
[2022-03-07] MEDS: PRENATAL VITAMINS W/ FOLIC ACID TABLET (FP) PO SCH (09:55)
[2022-03-07] MEDS: VITAMINS A AND D TOPICAL OINTMENT 60 GM TUBE TP SCH (09:56)
[2022-03-07] MEDS: PETROLATUM, WHITE 30 GM TUBE TP SCH (09:56)
[2022-03-07] MEDS: NICOTINE 14 MG/24 HOURS TOPICAL PATCH TD SCH (09:56)
[2022-03-07] MEDS: TOLNAFTATE 1% CREAM 15 GM TUBE TP SCH ×2 (10:36→21:35)
[2022-03-07] MEDS: THIAMINE HCL 100 MG TABLET (FP) PO SCH (21:34)
[2022-03-07] MEDS: MIRTAZAPINE 15 MG TABLET (FP) PO SCH (21:34)
[2022-03-07] MEDS: DOCUSATE SODIUM 100 MG CAPSULE (FP) PO SCH (21:34)
[2022-03-08] MEDS: methaDONE HCL 40 MG DISPERSABLE TABLET PO SCH (06:49)
[2022-03-08] MEDS: PRENATAL VITAMINS W/ FOLIC ACID TABLET (FP) PO SCH (10:00)
[2022-03-08] MEDS: NICOTINE 14 MG/24 HOURS TOPICAL PATCH TD SCH (10:00)
[2022-03-08] MEDS: NICOTINE 10 MG CARTRIDGE (INHALER) IH PRN (10:01)
[2022-03-08] MEDS: VITAMINS A AND D TOPICAL OINTMENT 60 GM TUBE TP SCH (10:02)
[2022-03-08] MEDS: TOLNAFTATE 1% CREAM 15 GM TUBE TP SCH ×2 (10:02→21:06)
[2022-03-08] MEDS: PETROLATUM, WHITE 30 GM TUBE TP SCH (10:02)
[2022-03-08] MEDS: MIRTAZAPINE 15 MG TABLET (FP) PO SCH (21:06)
[2022-03-08] MEDS: DOCUSATE SODIUM 100 MG CAPSULE (FP) PO SCH (21:06)
[2022-03-08] MEDS: THIAMINE HCL 100 MG TABLET (FP) PO SCH (21:06)
[2022-03-09] MEDS: methaDONE HCL 40 MG DISPERSABLE TABLET PO SCH (06:17)
[2022-03-09] MEDS: PRENATAL VITAMINS W/ FOLIC ACID TABLET (FP) PO SCH ×2 (09:41→09:44)
[2022-03-09] MEDS: NICOTINE 14 MG/24 HOURS TOPICAL PATCH TD SCH ×2 (09:42→09:44)
[2022-03-09] MEDS: VITAMINS A AND D TOPICAL OINTMENT 60 GM TUBE TP SCH (09:45)
[2022-03-09] MEDS: TOLNAFTATE 1% CREAM 15 GM TUBE TP SCH ×2 (09:45→21:39)
[2022-03-09] MEDS: PETROLATUM, WHITE 30 GM TUBE TP SCH (09:45)
[2022-03-09] MEDS: NICOTINE 10 MG CARTRIDGE (INHALER) IH PRN (09:45)
[2022-03-09] MEDS: MIRTAZAPINE 15 MG TABLET (FP) PO SCH (21:39)
[2022-03-09] MEDS: DOCUSATE SODIUM 100 MG CAPSULE (FP) PO SCH (21:39)
[2022-03-09] MEDS: THIAMINE HCL 100 MG TABLET (FP) PO SCH (21:39)
[2022-03-10] MEDS: methaDONE HCL 40 MG DISPERSABLE TABLET PO SCH (06:39)
[2022-03-10] MEDS: NICOTINE 10 MG CARTRIDGE (INHALER) IH PRN (09:44)
[2022-03-10] MEDS: PRENATAL VITAMINS W/ FOLIC ACID TABLET (FP) PO SCH (09:44)
[2022-03-10] MEDS: TOLNAFTATE 1% CREAM 15 GM TUBE TP SCH ×2 (09:44→21:27)
[2022-03-10] MEDS: PETROLATUM, WHITE 30 GM TUBE TP SCH (09:45)
[2022-03-10] MEDS: NICOTINE 14 MG/24 HOURS TOPICAL PATCH TD SCH (09:45)
[2022-03-10] MEDS: VITAMINS A AND D TOPICAL OINTMENT 60 GM TUBE TP SCH (11:52)
[2022-03-10] MEDS: MIRTAZAPINE 15 MG TABLET (FP) PO SCH (21:26)
[2022-03-10] MEDS: DOCUSATE SODIUM 100 MG CAPSULE (FP) PO SCH (21:26)
[2022-03-10] MEDS: THIAMINE HCL 100 MG TABLET (FP) PO SCH (21:26)
[2022-03-11] MEDS: methaDONE HCL 40 MG DISPERSABLE TABLET PO SCH (06:13)
[2022-03-11] MEDS: NICOTINE 10 MG CARTRIDGE (INHALER) IH PRN (10:00)
[2022-03-11] MEDS: PRENATAL VITAMINS W/ FOLIC ACID TABLET (FP) PO SCH (10:00)
[2022-03-11] MEDS: NICOTINE 14 MG/24 HOURS TOPICAL PATCH TD SCH (10:01)
[2022-03-11] MEDS: TOLNAFTATE 1% CREAM 15 GM TUBE TP SCH ×2 (10:02→21:35)
[2022-03-11] MEDS: PETROLATUM, WHITE 30 GM TUBE TP SCH (10:02)
[2022-03-11] MEDS: VITAMINS A AND D TOPICAL OINTMENT 60 GM TUBE TP SCH (10:02)
[2022-03-11] MEDS: DOCUSATE SODIUM 100 MG CAPSULE (FP) PO SCH (21:35)
[2022-03-11] MEDS: MIRTAZAPINE 15 MG TABLET (FP) PO SCH (21:35)
[2022-03-11] MEDS: THIAMINE HCL 100 MG TABLET (FP) PO SCH (21:36)
[2022-03-12] MEDS: methaDONE HCL 40 MG DISPERSABLE TABLET PO SCH (06:28)
[2022-03-12] MEDS: PRENATAL VITAMINS W/ FOLIC ACID TABLET (FP) PO SCH (09:41)
[2022-03-12] MEDS: NICOTINE 14 MG/24 HOURS TOPICAL PATCH TD SCH (09:41)
[2022-03-12] MEDS: NICOTINE 10 MG CARTRIDGE (INHALER) IH PRN (09:42)
[2022-03-12] MEDS: PETROLATUM, WHITE 30 GM TUBE TP SCH (09:42)
[2022-03-12] MEDS: VITAMINS A AND D TOPICAL OINTMENT 60 GM TUBE TP SCH (09:42)
[2022-03-12] MEDS: TOLNAFTATE 1% CREAM 15 GM TUBE TP SCH ×2 (09:42→22:07)
[2022-03-12] MEDS: MIRTAZAPINE 15 MG TABLET (FP) PO SCH (21:44)
[2022-03-12] MEDS: DOCUSATE SODIUM 100 MG CAPSULE (FP) PO SCH (21:44)
[2022-03-12] MEDS: THIAMINE HCL 100 MG TABLET (FP) PO SCH (21:44)
[2022-03-13] MEDS: methaDONE HCL 40 MG DISPERSABLE TABLET PO SCH (06:14)
[2022-03-13] MEDS: PRENATAL VITAMINS W/ FOLIC ACID TABLET (FP) PO SCH (09:49)
[2022-03-13] MEDS: TOLNAFTATE 1% CREAM 15 GM TUBE TP SCH ×2 (09:50→21:44)
[2022-03-13] MEDS: NICOTINE 14 MG/24 HOURS TOPICAL PATCH TD SCH (09:50)
[2022-03-13] MEDS: PETROLATUM, WHITE 30 GM TUBE TP SCH (09:50)
[2022-03-13] MEDS: NICOTINE 10 MG CARTRIDGE (INHALER) IH PRN (09:50)
[2022-03-13] MEDS: VITAMINS A AND D TOPICAL OINTMENT 60 GM TUBE TP SCH (09:50)
[2022-03-13] MEDS: MIRTAZAPINE 15 MG TABLET (FP) PO SCH (21:42)
[2022-03-13] MEDS: DOCUSATE SODIUM 100 MG CAPSULE (FP) PO SCH (21:42)
[2022-03-13] MEDS: THIAMINE HCL 100 MG TABLET (FP) PO SCH (21:42)
[2022-03-14] MEDS: methaDONE HCL 40 MG DISPERSABLE TABLET PO SCH (06:14)
[2022-03-14] MEDS: NICOTINE 14 MG/24 HOURS TOPICAL PATCH TD SCH (09:47)
[2022-03-14] MEDS: PRENATAL VITAMINS W/ FOLIC ACID TABLET (FP) PO SCH (09:47)
[2022-03-14] MEDS: NICOTINE 10 MG CARTRIDGE (INHALER) IH PRN (09:48)
[2022-03-14] MEDS: TOLNAFTATE 1% CREAM 15 GM TUBE TP SCH ×2 (09:48→21:38)
[2022-03-14] MEDS: PETROLATUM, WHITE 30 GM TUBE TP SCH (10:04)
[2022-03-14] MEDS: VITAMINS A AND D TOPICAL OINTMENT 60 GM TUBE TP SCH (10:04)
[2022-03-14] MEDS: hydrOXYzine PAMOATE 25 MG CAPSULE (FP) PO PRN ×2 (19:23→21:34)
[2022-03-14] MEDS: DOCUSATE SODIUM 100 MG CAPSULE (FP) PO SCH (21:34)
[2022-03-14] MEDS: THIAMINE HCL 100 MG TABLET (FP) PO SCH (21:34)
[2022-03-14] MEDS: MIRTAZAPINE 15 MG TABLET (FP) PO SCH (21:34)
[2022-03-15] MEDS: methaDONE HCL 40 MG DISPERSABLE TABLET PO SCH (06:48)
[2022-03-15] MEDS: NICOTINE 10 MG CARTRIDGE (INHALER) IH PRN (10:00)
[2022-03-15] MEDS: PRENATAL VITAMINS W/ FOLIC ACID TABLET (FP) PO SCH (10:00)
[2022-03-15] MEDS: NICOTINE 14 MG/24 HOURS TOPICAL PATCH TD SCH (10:00)
[2022-03-15] MEDS: PETROLATUM, WHITE 30 GM TUBE TP SCH (10:01)
[2022-03-15] MEDS: VITAMINS A AND D TOPICAL OINTMENT 60 GM TUBE TP SCH (10:01)
[2022-03-15] MEDS: TOLNAFTATE 1% CREAM 15 GM TUBE TP SCH ×2 (10:01→21:39)
[2022-03-15] MEDS: MIRTAZAPINE 15 MG TABLET (FP) PO SCH (21:37)
[2022-03-15] MEDS: THIAMINE HCL 100 MG TABLET (FP) PO SCH (21:37)
[2022-03-15] MEDS: DOCUSATE SODIUM 100 MG CAPSULE (FP) PO SCH (21:37)
[2022-03-16] MEDS: methaDONE HCL 40 MG DISPERSABLE TABLET PO SCH (06:28)
[2022-03-16] MEDS: PRENATAL VITAMINS W/ FOLIC ACID TABLET (FP) PO SCH (10:07)
[2022-03-16] MEDS: TOLNAFTATE 1% CREAM 15 GM TUBE TP SCH ×2 (10:08→21:35)
[2022-03-16] MEDS: PETROLATUM, WHITE 30 GM TUBE TP SCH (10:08)
[2022-03-16] MEDS: NICOTINE 14 MG/24 HOURS TOPICAL PATCH TD SCH (10:08)
[2022-03-16] MEDS: NICOTINE 10 MG CARTRIDGE (INHALER) IH PRN (10:09)
[2022-03-16] MEDS: VITAMINS A AND D TOPICAL OINTMENT 60 GM TUBE TP SCH (10:09)
[2022-03-16] MEDS: MIRTAZAPINE 15 MG TABLET (FP) PO SCH (21:34)
[2022-03-16] MEDS: DOCUSATE SODIUM 100 MG CAPSULE (FP) PO SCH (21:34)
[2022-03-16] MEDS: THIAMINE HCL 100 MG TABLET (FP) PO SCH (21:34)
[2022-03-17] MEDS: methaDONE HCL 40 MG DISPERSABLE TABLET PO SCH (06:11)
[2022-03-17 06:40] VITALS: RESP 18
[2022-03-17] MEDS: NICOTINE 14 MG/24 HOURS TOPICAL PATCH TD SCH (09:44)
[2022-03-17] MEDS: TOLNAFTATE 1% CREAM 15 GM TUBE TP SCH ×2 (09:44→21:25)
[2022-03-17] MEDS: PETROLATUM, WHITE 30 GM TUBE TP SCH (09:44)
[2022-03-17] MEDS: PRENATAL VITAMINS W/ FOLIC ACID TABLET (FP) PO SCH (09:44)
[2022-03-17] MEDS: VITAMINS A AND D TOPICAL OINTMENT 60 GM TUBE TP SCH (09:45)
[2022-03-17] MEDS: THIAMINE HCL 100 MG TABLET (FP) PO SCH (21:24)
[2022-03-17] MEDS: MIRTAZAPINE 15 MG TABLET (FP) PO SCH (21:24)
[2022-03-17] MEDS: DOCUSATE SODIUM 100 MG CAPSULE (FP) PO SCH (21:24)
[2022-03-18] MEDS: methaDONE HCL 40 MG DISPERSABLE TABLET PO SCH (06:13)
[2022-03-18 07:02] VITALS: BP 100/68; PULSE 69; TEMP 97.5
[2022-03-18] MEDS: PRENATAL VITAMINS W/ FOLIC ACID TABLET (FP) PO SCH (09:05)
[2022-03-18] MEDS: PETROLATUM, WHITE 30 GM TUBE TP SCH (09:06)
[2022-03-18] MEDS: VITAMINS A AND D TOPICAL OINTMENT 60 GM TUBE TP SCH (09:06)
[2022-03-18] MEDS: NICOTINE 14 MG/24 HOURS TOPICAL PATCH TD SCH (09:06)
[2022-03-18] MEDS: TOLNAFTATE 1% CREAM 15 GM TUBE TP SCH (09:06)
== END 2022-03-18 09:10 | disposition home or self-care (01) | DRG 772 ==
LOC: YASAS 11:54 → Y3E 12:09
PROVIDERS: ADMIT Allergy & Immunology; ATTEND Psychiatry & Neurology Pain Medicine
PROC: HZ42ZZZ Group Counseling for Substance Abuse Treatment, Cognitive-Behavioral (ICD-10-PCS; principal; 2022-02-17)
DX: F11.20 Opioid dependence, uncomplicated (principal); F10.20 Alcohol dependence, uncomplicated; F14.20 Cocaine dependence, uncomplicated; F17.210 Nicotine dependence, cigarettes, uncomplicated; F19.282 Other psychoactive substance dependence with psychoactive substance-induced sleep disorder; F19.24 Other psychoactive substance dependence with psychoactive substance-induced mood disorder; L02.413 Cutaneous abscess of right upper limb; R30.0 Dysuria; Z86.19 Personal history of other infectious and parasitic diseases; Z56.0 Unemployment, unspecified; Z59.00 Homelessness unspecified
CPT/HCPCS: 36415; 81003; 82947; 83036; 86803; 87522

== ENCOUNTER 2022-06-15 14:14 | Inpatient (IN) | payer OTHER ==
[2022-06-15 15:21] VITALS: BMI 30.9
[2022-06-15] MEDS ORDERED: MAG HYDROX/AL HYDROX/SIMETH 30 ML UNIT-DOSE CUP PO PRN (18:56)
[2022-06-15] MEDS ORDERED: guaiFENesin 200 MG/10 ML 10 ML UNIT-DOSE CUPS PO PRN (18:56)
[2022-06-15] MEDS ORDERED: ACETAMINOPHEN 325 MG TABLET (FP) PO PRN (18:56)
[2022-06-15] MEDS ORDERED: P-EPHED 60MG/TRIPROLIDI 2.5MG TABLET PO PRN (18:56)
[2022-06-15] MEDS ORDERED: MAGNESIUM HYDROX 2400MG/30ML ORAL SUSPENSION 30 ML CUP PO PRN (18:56)
[2022-06-15] MEDS ORDERED: LOPERAMIDE HCL 2 MG CAPSULE PO PRN (18:56)
[2022-06-15] MEDS ORDERED: NICOTINE POLACRILEX 2 MG GUM BC PRN (18:56)
[2022-06-15] MEDS ORDERED: MAGNESIUM CITRATE 300 ML BOTTLE PO PRN (18:56)
[2022-06-15] MEDS: THIAMINE HCL 100 MG TABLET (FP) PO SCH ×2 (22:05→22:41)
[2022-06-15] MEDS: MELATONIN 5 MG TABLETS PO SCH ×2 (22:05→22:41)
[2022-06-16] MEDS: NICOTINE 14 MG/24 HOURS TOPICAL PATCH TD SCH (10:36)
[2022-06-16] MEDS: PRENATAL VITAMINS W/ FOLIC ACID TABLET (FP) PO SCH (10:36)
[2022-06-16] MEDS ORDERED: PATIENT'S OWN MEDICATION (NON-FORMULARY) (Sofosbuvir/Velpatasvir [Sofosbuvir-Velpatasvir 4 PO SCH (14:00)
[2022-06-16] MEDS: MELATONIN 5 MG TABLETS PO SCH (22:00)
[2022-06-16] MEDS: THIAMINE HCL 100 MG TABLET (FP) PO SCH (22:00)
[2022-06-17] MEDS ORDERED: PATIENT'S OWN MEDICATION (NON-FORMULARY) (Zinc Gluconate [Zinc] 50 MG Tablet) PO SCH (10:00)
[2022-06-17] MEDS: PRENATAL VITAMINS W/ FOLIC ACID TABLET (FP) PO SCH (10:54)
[2022-06-17] MEDS: NICOTINE 14 MG/24 HOURS TOPICAL PATCH TD SCH (10:55)
[2022-06-17] MEDS: PATIENT'S OWN MEDICATION (NON-FORMULARY) (Sofosbuvir/Velpatasvir [Sofosbuvir-Velpatasvir 4 PO SCH (10:55)
[2022-06-17] MEDS: ASCORBIC ACID 500 MG TABLET (FP) PO SCH (10:56)
[2022-06-17] MEDS ORDERED: methaDONE HCL 10 MG TABLET PO ONE (11:01)
[2022-06-17 11:15] LABS: HEMATOCRIT 40.9 % (35.4-49); MCHC 34.1 g/dl (32.0-35.9); MEAN CELL VOLUME 84.9 fl (80-96); MEAN PLT VOLUME 9.1 fl (7.5-11.1); PLATELET COUNT 238 10^3/uL (134-434); RBC 4.81 M/mm3 (4.00-5.60); RDW 13.3 % (11.9-15.9); WHITE BLOOD COUNT 9.2 K/mm3 (4.0-10.0)
[2022-06-17 11:28] LABS: CALCIUM 8.8 mg/dL (8.5-10.1)
[2022-06-17 11:29] LABS: ALBUMIN 3.6 g/dl (3.4-5.0); BLOOD UREA NITROGEN 12.3 mg/dL (7-18)
[2022-06-17 11:32] LABS: CREATININE 0.8 mg/dL (0.55-1.3)
[2022-06-17 11:33] LABS: BILIRUBIN,TOTAL 0.5 mg/dL (0.2-1); TOT PROT 7.1 g/dl (6.4-8.2)
[2022-06-17] MEDS: MELATONIN 5 MG TABLETS PO SCH (21:07)
[2022-06-17] MEDS: THIAMINE HCL 100 MG TABLET (FP) PO SCH (21:07)
[2022-06-18] MEDS ORDERED: methaDONE 40 MG, methaDONE 20 MG PO ONE (06:00)
[2022-06-18] MEDS ORDERED: methaDONE HCL 10 MG TABLET PO ONE ×2 (06:00→10:00)
[2022-06-18] MEDS: PRENATAL VITAMINS W/ FOLIC ACID TABLET (FP) PO SCH (10:22)
[2022-06-18] MEDS: PATIENT'S OWN MEDICATION (NON-FORMULARY) (Sofosbuvir/Velpatasvir [Sofosbuvir-Velpatasvir 4 PO SCH (10:23)
[2022-06-18] MEDS: NICOTINE 14 MG/24 HOURS TOPICAL PATCH TD SCH (10:23)
[2022-06-18] MEDS: ASCORBIC ACID 500 MG TABLET (FP) PO SCH (10:23)
[2022-06-18 14:54] LABS: EPI CELLS 5 /uL (0-25.1); HYALINE CASTS 2 /uL (0-3.1); URINE APPEARANCE CLEAR; URINE BACTERIA 109 /uL (0-1359); URINE BILIRUBIN NEGATIVE (NEGATIVE); URINE COLOR YELLOW; URINE GLUCOSE (UA) NEGATIVE (NEGATIVE); URINE KETONE TRACE (NEGATIVE); URINE LEUK ESTERASE 1+ (NEGATIVE); URINE NITRITE NEGATIVE (NEGATIVE); URINE PROTEIN NEGATIVE (NEGATIVE); URINE RBC 7 /uL (0-23.9); URINE WBC 125 /uL (0-25.8)
[2022-06-18] MEDS: MELATONIN 5 MG TABLETS PO SCH (21:24)
[2022-06-18] MEDS: THIAMINE HCL 100 MG TABLET (FP) PO SCH (21:24)
[2022-06-19] MEDS ORDERED: methaDONE HCL 40 MG DISPERSABLE TABLET PO SCH (06:00)
[2022-06-19] MEDS: PRENATAL VITAMINS W/ FOLIC ACID TABLET (FP) PO SCH (10:27)
[2022-06-19] MEDS: NICOTINE 14 MG/24 HOURS TOPICAL PATCH TD SCH (10:31)
[2022-06-19] MEDS: ASCORBIC ACID 500 MG TABLET (FP) PO SCH (10:31)
[2022-06-19] MEDS: PATIENT'S OWN MEDICATION (NON-FORMULARY) (Sofosbuvir/Velpatasvir [Sofosbuvir-Velpatasvir 4 PO SCH (10:31)
[2022-06-19] MEDS ORDERED: NICOTINE 10 MG CARTRIDGE (INHALER) IH SCH (13:30)
[2022-06-19] MEDS: MIRTAZAPINE 15 MG TABLET (FP) PO SCH (21:17)
[2022-06-19] MEDS: MELATONIN 5 MG TABLETS PO SCH (21:17)
[2022-06-19] MEDS: THIAMINE HCL 100 MG TABLET (FP) PO SCH (21:17)
[2022-06-20] MEDS: PATIENT'S OWN MEDICATION (NON-FORMULARY) (Sofosbuvir/Velpatasvir [Sofosbuvir-Velpatasvir 4 PO SCH (09:47)
[2022-06-20] MEDS: PRENATAL VITAMINS W/ FOLIC ACID TABLET (FP) PO SCH (09:47)
[2022-06-20] MEDS: NICOTINE 14 MG/24 HOURS TOPICAL PATCH TD SCH (09:47)
[2022-06-20] MEDS: ASCORBIC ACID 500 MG TABLET (FP) PO SCH (09:48)
[2022-06-20] MEDS ORDERED: LITHIUM CARBONATE 150 MG CAPSULE PO SCH (10:00)
[2022-06-20] MEDS ORDERED: CALAMINE 8% TOPICAL LOTION 177 ML BOTTLE TP PRN (14:43)
[2022-06-20] MEDS: MELATONIN 5 MG TABLETS PO SCH (21:12)
[2022-06-20] MEDS: THIAMINE HCL 100 MG TABLET (FP) PO SCH (21:12)
[2022-06-20] MEDS: MIRTAZAPINE 15 MG TABLET (FP) PO SCH (21:12)
[2022-06-21] MEDS: ASCORBIC ACID 500 MG TABLET (FP) PO SCH (10:27)
[2022-06-21] MEDS: PRENATAL VITAMINS W/ FOLIC ACID TABLET (FP) PO SCH (10:27)
[2022-06-21] MEDS: PATIENT'S OWN MEDICATION (NON-FORMULARY) (Sofosbuvir/Velpatasvir [Sofosbuvir-Velpatasvir 4 PO SCH (10:28)
[2022-06-21] MEDS: NICOTINE 14 MG/24 HOURS TOPICAL PATCH TD SCH (10:29)
[2022-06-21] MEDS ORDERED: HYDROCORTISONE 0.5% TOPICAL OINTMENT TUBE TP PRN (10:51)
[2022-06-21] MEDS: MIRTAZAPINE 15 MG TABLET (FP) PO SCH (21:49)
[2022-06-21] MEDS: MELATONIN 5 MG TABLETS PO SCH (21:49)
[2022-06-21] MEDS: THIAMINE HCL 100 MG TABLET (FP) PO SCH (21:49)
[2022-06-22] MEDS: PRENATAL VITAMINS W/ FOLIC ACID TABLET (FP) PO SCH (10:50)
[2022-06-22] MEDS: ASCORBIC ACID 500 MG TABLET (FP) PO SCH (10:50)
[2022-06-22] MEDS: NICOTINE 14 MG/24 HOURS TOPICAL PATCH TD SCH (10:50)
[2022-06-22] MEDS: HYDROCORTISONE 0.5% TOPICAL CREAM 30 GM TUBE TP PRN (10:52)
[2022-06-22] MEDS: PATIENT'S OWN MEDICATION (NON-FORMULARY) (Sofosbuvir/Velpatasvir [Sofosbuvir-Velpatasvir 4 PO SCH (12:43)
[2022-06-22] MEDS: MIRTAZAPINE 15 MG TABLET (FP) PO SCH (21:18)
[2022-06-22] MEDS: MELATONIN 5 MG TABLETS PO SCH (21:18)
[2022-06-22] MEDS: THIAMINE HCL 100 MG TABLET (FP) PO SCH (21:18)
[2022-06-23] MEDS: HYDROCORTISONE 0.5% TOPICAL CREAM 30 GM TUBE TP PRN (09:54)
[2022-06-23] MEDS: ASCORBIC ACID 500 MG TABLET (FP) PO SCH (09:55)
[2022-06-23] MEDS: NICOTINE 14 MG/24 HOURS TOPICAL PATCH TD SCH (09:55)
[2022-06-23] MEDS: PRENATAL VITAMINS W/ FOLIC ACID TABLET (FP) PO SCH (09:55)
[2022-06-23] MEDS: PATIENT'S OWN MEDICATION (NON-FORMULARY) (Sofosbuvir/Velpatasvir [Sofosbuvir-Velpatasvir 4 PO SCH (10:58)
[2022-06-23] MEDS: THIAMINE HCL 100 MG TABLET (FP) PO SCH (21:23)
[2022-06-23] MEDS: MIRTAZAPINE 15 MG TABLET (FP) PO SCH (21:23)
[2022-06-23] MEDS: MELATONIN 5 MG TABLETS PO SCH (21:23)
[2022-06-24] MEDS: PRENATAL VITAMINS W/ FOLIC ACID TABLET (FP) PO SCH (10:12)
[2022-06-24] MEDS: ASCORBIC ACID 500 MG TABLET (FP) PO SCH (10:12)
[2022-06-24] MEDS: NICOTINE 14 MG/24 HOURS TOPICAL PATCH TD SCH (10:13)
[2022-06-24] MEDS: HYDROCORTISONE 0.5% TOPICAL CREAM 30 GM TUBE TP PRN (10:14)
[2022-06-24] MEDS: NICOTINE 10 MG CARTRIDGE (INHALER) IH PRN (10:21)
[2022-06-24] MEDS: MELATONIN 5 MG TABLETS PO SCH (21:29)
[2022-06-24] MEDS: THIAMINE HCL 100 MG TABLET (FP) PO SCH (21:29)
[2022-06-24] MEDS: MIRTAZAPINE 15 MG TABLET (FP) PO SCH (21:29)
[2022-06-25] MEDS: NICOTINE 14 MG/24 HOURS TOPICAL PATCH TD SCH (09:35)
[2022-06-25] MEDS: PRENATAL VITAMINS W/ FOLIC ACID TABLET (FP) PO SCH (09:35)
[2022-06-25] MEDS: ASCORBIC ACID 500 MG TABLET (FP) PO SCH (09:36)
[2022-06-25] MEDS: THIAMINE HCL 100 MG TABLET (FP) PO SCH (21:19)
[2022-06-25] MEDS: MIRTAZAPINE 15 MG TABLET (FP) PO SCH (21:20)
[2022-06-25] MEDS: MELATONIN 5 MG TABLETS PO SCH (21:20)
[2022-06-26 06:43] VITALS: RESP 18
[2022-06-26] MEDS: PRENATAL VITAMINS W/ FOLIC ACID TABLET (FP) PO SCH (09:33)
[2022-06-26] MEDS: NICOTINE 14 MG/24 HOURS TOPICAL PATCH TD SCH (09:33)
[2022-06-26] MEDS: ASCORBIC ACID 500 MG TABLET (FP) PO SCH (09:34)
[2022-06-26] MEDS: MELATONIN 5 MG TABLETS PO SCH (21:07)
[2022-06-26] MEDS: MIRTAZAPINE 15 MG TABLET (FP) PO SCH (21:07)
[2022-06-26] MEDS: THIAMINE HCL 100 MG TABLET (FP) PO SCH (21:07)
[2022-06-27] MEDS: NICOTINE 14 MG/24 HOURS TOPICAL PATCH TD SCH (09:55)
[2022-06-27] MEDS: PRENATAL VITAMINS W/ FOLIC ACID TABLET (FP) PO SCH (09:55)
[2022-06-27] MEDS: ASCORBIC ACID 500 MG TABLET (FP) PO SCH (09:55)
[2022-06-27] MEDS: THIAMINE HCL 100 MG TABLET (FP) PO SCH (21:02)
[2022-06-27] MEDS: MELATONIN 5 MG TABLETS PO SCH (21:02)
[2022-06-27] MEDS: MIRTAZAPINE 15 MG TABLET (FP) PO SCH (21:02)
[2022-06-28] MEDS: NICOTINE 14 MG/24 HOURS TOPICAL PATCH TD SCH (09:30)
[2022-06-28] MEDS: ASCORBIC ACID 500 MG TABLET (FP) PO SCH (09:30)
[2022-06-28] MEDS: PRENATAL VITAMINS W/ FOLIC ACID TABLET (FP) PO SCH (09:30)
[2022-06-28] MEDS: NICOTINE 10 MG CARTRIDGE (INHALER) IH PRN (09:31)
[2022-06-28] MEDS: THIAMINE HCL 100 MG TABLET (FP) PO SCH (21:16)
[2022-06-28] MEDS: MELATONIN 5 MG TABLETS PO SCH (21:16)
[2022-06-28] MEDS: MIRTAZAPINE 15 MG TABLET (FP) PO SCH (21:16)
[2022-06-29] MEDS: PRENATAL VITAMINS W/ FOLIC ACID TABLET (FP) PO SCH (09:34)
[2022-06-29] MEDS: NICOTINE 14 MG/24 HOURS TOPICAL PATCH TD SCH (09:35)
[2022-06-29] MEDS: ASCORBIC ACID 500 MG TABLET (FP) PO SCH (09:35)
[2022-06-29] MEDS: MIRTAZAPINE 15 MG TABLET (FP) PO SCH (21:06)
[2022-06-29] MEDS: THIAMINE HCL 100 MG TABLET (FP) PO SCH (21:07)
[2022-06-29] MEDS: MELATONIN 5 MG TABLETS PO SCH (21:07)
[2022-06-29] MEDS: IBUPROFEN 400 MG TABLET (FP) PO PRN (22:39)
[2022-06-30] MEDS: ASCORBIC ACID 500 MG TABLET (FP) PO SCH (10:06)
[2022-06-30] MEDS: PRENATAL VITAMINS W/ FOLIC ACID TABLET (FP) PO SCH (10:06)
[2022-06-30] MEDS: NICOTINE 10 MG CARTRIDGE (INHALER) IH PRN (10:07)
[2022-06-30] MEDS: NICOTINE 14 MG/24 HOURS TOPICAL PATCH TD SCH (10:07)
[2022-06-30] MEDS: MIRTAZAPINE 15 MG TABLET (FP) PO SCH (21:36)
[2022-06-30] MEDS: MELATONIN 5 MG TABLETS PO SCH (21:36)
[2022-06-30] MEDS: THIAMINE HCL 100 MG TABLET (FP) PO SCH (21:36)
[2022-07-01] MEDS: PRENATAL VITAMINS W/ FOLIC ACID TABLET (FP) PO SCH (10:12)
[2022-07-01] MEDS: NICOTINE 14 MG/24 HOURS TOPICAL PATCH TD SCH (10:12)
[2022-07-01] MEDS: ASCORBIC ACID 500 MG TABLET (FP) PO SCH (10:13)
[2022-07-01] MEDS: MELATONIN 5 MG TABLETS PO SCH (21:06)
[2022-07-01] MEDS: THIAMINE HCL 100 MG TABLET (FP) PO SCH (21:06)
[2022-07-01] MEDS: MIRTAZAPINE 15 MG TABLET (FP) PO SCH (21:06)
[2022-07-02] MEDS: PRENATAL VITAMINS W/ FOLIC ACID TABLET (FP) PO SCH (09:27)
[2022-07-02] MEDS: ASCORBIC ACID 500 MG TABLET (FP) PO SCH (09:27)
[2022-07-02] MEDS: NICOTINE 14 MG/24 HOURS TOPICAL PATCH TD SCH (09:27)
[2022-07-02] MEDS: THIAMINE HCL 100 MG TABLET (FP) PO SCH (21:16)
[2022-07-02] MEDS: MIRTAZAPINE 15 MG TABLET (FP) PO SCH (21:16)
[2022-07-02] MEDS: MELATONIN 5 MG TABLETS PO SCH (21:16)
[2022-07-03] MEDS: NICOTINE 14 MG/24 HOURS TOPICAL PATCH TD SCH (10:02)
[2022-07-03] MEDS: ASCORBIC ACID 500 MG TABLET (FP) PO SCH (10:02)
[2022-07-03] MEDS: PRENATAL VITAMINS W/ FOLIC ACID TABLET (FP) PO SCH (10:02)
[2022-07-03] MEDS: THIAMINE HCL 100 MG TABLET (FP) PO SCH (21:17)
[2022-07-03] MEDS: MELATONIN 5 MG TABLETS PO SCH (21:17)
[2022-07-03] MEDS: MIRTAZAPINE 15 MG TABLET (FP) PO SCH (21:17)
[2022-07-04] MEDS: PRENATAL VITAMINS W/ FOLIC ACID TABLET (FP) PO SCH (10:10)
[2022-07-04] MEDS: NICOTINE 14 MG/24 HOURS TOPICAL PATCH TD SCH (10:10)
[2022-07-04] MEDS: ASCORBIC ACID 500 MG TABLET (FP) PO SCH (10:10)
[2022-07-04] MEDS: MIRTAZAPINE 15 MG TABLET (FP) PO SCH (21:27)
[2022-07-04] MEDS: MELATONIN 5 MG TABLETS PO SCH (21:27)
[2022-07-04] MEDS: THIAMINE HCL 100 MG TABLET (FP) PO SCH (21:27)
[2022-07-05] MEDS: PRENATAL VITAMINS W/ FOLIC ACID TABLET (FP) PO SCH (10:41)
[2022-07-05] MEDS: NICOTINE 14 MG/24 HOURS TOPICAL PATCH TD SCH (10:41)
[2022-07-05] MEDS: ASCORBIC ACID 500 MG TABLET (FP) PO SCH (10:42)
[2022-07-05] MEDS: MIRTAZAPINE 15 MG TABLET (FP) PO SCH (21:19)
[2022-07-05] MEDS: THIAMINE HCL 100 MG TABLET (FP) PO SCH (21:20)
[2022-07-05] MEDS: MELATONIN 5 MG TABLETS PO SCH (21:20)
[2022-07-06] MEDS: IBUPROFEN 400 MG TABLET (FP) PO PRN (06:26)
[2022-07-06] MEDS: PRENATAL VITAMINS W/ FOLIC ACID TABLET (FP) PO SCH (10:47)
[2022-07-06] MEDS: ASCORBIC ACID 500 MG TABLET (FP) PO SCH (10:48)
[2022-07-06] MEDS: NICOTINE 14 MG/24 HOURS TOPICAL PATCH TD SCH (10:48)
[2022-07-06] MEDS: MIRTAZAPINE 15 MG TABLET (FP) PO SCH (21:25)
[2022-07-06] MEDS: THIAMINE HCL 100 MG TABLET (FP) PO SCH (21:25)
[2022-07-06] MEDS: MELATONIN 5 MG TABLETS PO SCH (21:25)
[2022-07-07 06:54] VITALS: TEMP 97.5
[2022-07-07] MEDS: PRENATAL VITAMINS W/ FOLIC ACID TABLET (FP) PO SCH (10:00)
[2022-07-07] MEDS: NICOTINE 14 MG/24 HOURS TOPICAL PATCH TD SCH (10:00)
[2022-07-07] MEDS: ASCORBIC ACID 500 MG TABLET (FP) PO SCH (10:00)
[2022-07-07] MEDS: THIAMINE HCL 100 MG TABLET (FP) PO SCH (21:27)
[2022-07-07] MEDS: MIRTAZAPINE 15 MG TABLET (FP) PO SCH (21:27)
[2022-07-07] MEDS: MELATONIN 5 MG TABLETS PO SCH (21:27)
[2022-07-08 06:52] VITALS: BP 117/69; PULSE 79
[2022-07-08] MEDS: ASCORBIC ACID 500 MG TABLET (FP) PO SCH (09:30)
[2022-07-08] MEDS: PRENATAL VITAMINS W/ FOLIC ACID TABLET (FP) PO SCH (09:30)
[2022-07-08] MEDS: NICOTINE 14 MG/24 HOURS TOPICAL PATCH TD SCH (09:30)
== END 2022-07-08 09:43 | disposition home or self-care (01) | DRG 772 ==
LOC: YASAS 14:14 → Y3W 20:27
PROVIDERS: ADMIT Allergy & Immunology; ATTEND Psychiatry & Neurology Pain Medicine
PROC: HZ42ZZZ Group Counseling for Substance Abuse Treatment, Cognitive-Behavioral (ICD-10-PCS; principal; 2022-06-15)
DX: F11.20 Opioid dependence, uncomplicated (principal); F14.20 Cocaine dependence, uncomplicated; F17.210 Nicotine dependence, cigarettes, uncomplicated; F19.282 Other psychoactive substance dependence with psychoactive substance-induced sleep disorder; F19.24 Other psychoactive substance dependence with psychoactive substance-induced mood disorder; F41.9 Anxiety disorder, unspecified; F32.A Depression, unspecified; B18.2 Chronic viral hepatitis C; R82.81 Pyuria; R21 Rash and other nonspecific skin eruption
CPT/HCPCS: 36415; 80053; 81003; 85027; 86780; C9803-CS; U0003; U0005

== ENCOUNTER 2023-07-28 11:11 | Inpatient (IN) | payer OTHER ==
[2023-07-28 11:46] VITALS: BMI 29.8
[2023-07-28] MEDS ORDERED: NICOTINE POLACRILEX 2 MG GUM BUC PRN (12:44)
[2023-07-28] MEDS ORDERED: IBUPROFEN 400 MG TABLET (FP) PO PRN (12:44)
[2023-07-28] MEDS ORDERED: NALOXONE HCL 0.4 MG/ML VIAL IM PRN (12:44)
[2023-07-28] MEDS ORDERED: MAG HYDROX/AL HYDROX/SIMETH 30 ML UNIT-DOSE CUP PO PRN (12:44)
[2023-07-28] MEDS ORDERED: hydrOXYzine PAMOATE 25 MG CAPSULE (FP) PO PRN (12:44)
[2023-07-28] MEDS ORDERED: BENZONATATE 200 MG CAPSULE PO PRN (12:44)
[2023-07-28] MEDS ORDERED: COLLOIDAL OATMEAL 1 BAR EACH TP PRN (12:44)
[2023-07-28] MEDS ORDERED: guaiFENesin 600 MG TABLET.ER (FP) PO PRN (12:44)
[2023-07-28] MEDS ORDERED: MAGNESIUM HYDROX 2400MG/30ML ORAL SUSPENSION 30 ML CUP PO PRN (12:44)
[2023-07-28] MEDS ORDERED: NALOXONE HCL (KLOXXADO) 8 MG SPRAY NS PRN (12:44)
[2023-07-28] MEDS ORDERED: LOPERAMIDE HCL 2 MG CAPSULE PO PRN (12:44)
[2023-07-28] MEDS ORDERED: BENZOCAINE/MENTHOL (CHLORASEPTIC ) LOZENGE MM PRN (12:44)
[2023-07-28] MEDS ORDERED: ACETAMINOPHEN 325 MG TABLET (FP) PO PRN (12:44)
[2023-07-28] MEDS ORDERED: POLYETHYLENE GLYCOL (HEALTHYLAX) 3350 17 GM PACKET PO PRN (12:44)
[2023-07-28] MEDS ORDERED: IBUPROFEN 600 MG TABLET (FP) PO PRN (12:44)
[2023-07-28 15:44] LABS: HEMOGLOBIN 13.5 GM/dL (11.7-16.9); MCH 27.3 pg (25.7-33.7); MCHC 32.9 g/dl (32.0-35.9); MEAN CELL VOLUME 82.9 fl (80-96); MEAN PLT VOLUME 9.2 fl (7.5-11.1); PLATELET COUNT 328 10^3/uL (134-434); RBC 4.95 M/mm3 (4.00-5.60); WHITE BLOOD COUNT 10.2 K/mm3 (4.0-10.0)
[2023-07-28 15:49] LABS: CHLORIDE 105 mmol/L (98-107); POTASSIUM 4.1 mmol/L (3.5-5.1); SODIUM 137 mmol/L (136-145)
[2023-07-28 15:56] LABS: ALBUMIN 3.9 g/dl (3.4-5.0); CALCIUM 8.9 mg/dL (8.5-10.1)
[2023-07-28 15:57] LABS: ANION GAP 7 mmol/L (4-13); BLOOD UREA NITROGEN 11.8 mg/dL (7-18); CO2 25 mmol/L (21-32); GLUCOSE,RANDOM 100 mg/dL (74-106); SGPT/ALT 18 U/L (13-61)
[2023-07-28 15:59] LABS: BILIRUBIN,TOTAL 0.4 mg/dL (0.2-1); TOT PROT 8.1 g/dl (6.4-8.2)
[2023-07-28 16:00] LABS: ALK PHOS 115 U/L (45-117); SGOT/AST 15 U/L (15-37)
[2023-07-28] MEDS ORDERED: TUBERCULIN PPD 5 TU/0.1ML VIAL ID ONE (16:42)
[2023-07-28 16:45] LABS: HIV INTERPRETATION NEGATIVE (NEGATIVE)
[2023-07-28] MEDS ORDERED: TUBERCULIN PPD 5 TU/0.1ML SYRINGE (IN PATIENT USE ONLY) ID ONE (17:00)
[2023-07-28] MEDS: THIAMINE HCL 100 MG TABLET (FP) PO SCH (21:06)
[2023-07-28] MEDS ORDERED: MELATONIN 5 MG TABLETS PO SCH (22:00)
[2023-07-29 07:04] VITALS: RESP 16
[2023-07-29] MEDS ORDERED: NICOTINE 14 MG/24 HOURS TOPICAL PATCH TD SCH ×2 (10:00→13:50)
[2023-07-29] MEDS: PRENATAL VITAMINS W/ FOLIC ACID TABLET (FP) PO SCH (10:04)
[2023-07-29] MEDS ORDERED: BUPRENORPHINE HCL 150 MCG, BUPRENORPHINE HCL 75 MCG BC ONE (13:49)
[2023-07-29] MEDS ORDERED: BUPRENORPHINE HCL 150 MCG, BUPRENORPHINE HCL 75 MCG BC PRN (13:49)
[2023-07-29] MEDS ORDERED: cloNIDine HCL 0.1 MG TABLET PO ONE (13:49)
[2023-07-29] MEDS ORDERED: NICOTINE POLACRILEX 4 MG GUM BUC PRN (13:50)
[2023-07-29] MEDS: BACITRACIN 0.9 GM PACKET TP SCH ×2 (14:45→21:07)
[2023-07-29] MEDS: CEPHALEXIN MONOHYDRATE 500 MG CAPSULE (UD) PO SCH ×2 (14:45→20:55)
[2023-07-29] MEDS ORDERED: cloNIDine HCL 0.1 MG TABLET PO PRN (17:49)
[2023-07-29] MEDS: THIAMINE HCL 100 MG TABLET (FP) PO SCH (21:07)
[2023-07-29] MEDS ORDERED: SUVOREXANT 10 MG TABLET PO PRN (22:00)
[2023-07-30] MEDS ORDERED: BUPRENORPHINE HCL 150 MCG, BUPRENORPHINE HCL 75 MCG BC PRN
[2023-07-30] MEDS: CEPHALEXIN MONOHYDRATE 500 MG CAPSULE (UD) PO SCH ×3 (02:28→13:45)
[2023-07-30] MEDS: BUPRENORPHINE HCL 150 MCG, BUPRENORPHINE HCL 75 MCG BC SCH ×2 (06:25→06:41)
[2023-07-30 07:12] VITALS: BP 112/72; PULSE 54; TEMP 97.1
[2023-07-30] MEDS: BACITRACIN 0.9 GM PACKET TP SCH (10:18)
[2023-07-30] MEDS: PRENATAL VITAMINS W/ FOLIC ACID TABLET (FP) PO SCH (10:18)
[2023-07-31] MEDS ORDERED: BUPRENORPHINE HCL 450 MCG FILM BC SCH (06:00)
[2023-08-01] MEDS ORDERED: BUPRENORPHINE/NALOXONE 4 MG/1 MG FILM PACKET SL SCH (06:00)
[2023-08-01] MEDS ORDERED: BUPRENORPHINE/NALOXONE 8 MG/2 MG FILM PACKET SL SCH (10:00)
== END 2023-07-30 15:28 | disposition left against medical advice (07) | DRG 770 ==
LOC: YASAS 11:11 → Y3W 15:28
PROVIDERS: ADMIT Allergy & Immunology; ATTEND Psychiatry & Neurology Pain Medicine
PROC: HZ42ZZZ Group Counseling for Substance Abuse Treatment, Cognitive-Behavioral (ICD-10-PCS; principal; 2023-07-28)
DX: F14.20 Cocaine dependence, uncomplicated (principal); F11.20 Opioid dependence, uncomplicated; F15.20 Other stimulant dependence, uncomplicated; F17.210 Nicotine dependence, cigarettes, uncomplicated; F41.9 Anxiety disorder, unspecified; G47.00 Insomnia, unspecified; L02.512 Cutaneous abscess of left hand; Z86.19 Personal history of other infectious and parasitic diseases; Z56.0 Unemployment, unspecified; Z59.00 Homelessness unspecified
CPT/HCPCS: 36415; 80053; 80307; 85027; 86780; 87389; 87635; 93005; 93010

== ENCOUNTER 2023-09-03 11:55 | Inpatient (IN) | payer OTHER ==
[2023-09-03 12:35] VITALS: BMI 31.6
[2023-09-03] MEDS ORDERED: methaDONE HCL 10 MG TABLET (FOR DETOX USE ONLY) PO ONE (15:20)
[2023-09-03] MEDS ORDERED: MAGNESIUM HYDROX 2400MG/30ML ORAL SUSPENSION 30 ML CUP PO PRN (15:20)
[2023-09-03] MEDS ORDERED: guaiFENesin 600 MG TABLET.ER (FP) PO PRN (15:20)
[2023-09-03] MEDS ORDERED: BENZONATATE 200 MG CAPSULE PO PRN (15:20)
[2023-09-03] MEDS ORDERED: BENZOCAINE/MENTHOL (CHLORASEPTIC ) LOZENGE MM PRN (15:20)
[2023-09-03] MEDS ORDERED: MAG HYDROX/AL HYDROX/SIMETH 30 ML UNIT-DOSE CUP PO PRN (15:20)
[2023-09-03] MEDS ORDERED: IBUPROFEN 600 MG TABLET (FP) PO PRN (15:20)
[2023-09-03] MEDS ORDERED: ACETAMINOPHEN 325 MG TABLET (FP) PO PRN (15:20)
[2023-09-03] MEDS ORDERED: ONDANSETRON *ODT* 4 MG TABLET SL PRN (15:20)
[2023-09-03] MEDS ORDERED: NALOXONE HCL (KLOXXADO) 8 MG SPRAY NS PRN (15:20)
[2023-09-03] MEDS ORDERED: cloNIDine HCL 0.1 MG TABLET PO PRN (15:20)
[2023-09-03] MEDS ORDERED: DICYCLOMINE HCL 10 MG CAPSULE PO PRN (15:20)
[2023-09-03] MEDS ORDERED: POLYETHYLENE GLYCOL (HEALTHYLAX) 3350 17 GM PACKET PO PRN (15:20)
[2023-09-03] MEDS ORDERED: NICOTINE POLACRILEX 2 MG GUM BUC PRN (15:20)
[2023-09-03] MEDS ORDERED: BISMUTH SUBSALICYLATE 262 MG/15 ML BTL PO PRN (15:20)
[2023-09-03] MEDS ORDERED: PROCHLORPERAZINE MALEATE 5 MG TABLET PO PRN (15:20)
[2023-09-03] MEDS ORDERED: NALOXONE HCL 0.4 MG/ML VIAL IM PRN (15:20)
[2023-09-03] MEDS ORDERED: IBUPROFEN 400 MG TABLET (FP) PO PRN (15:20)
[2023-09-03] MEDS ORDERED: methaDONE HCL 10 MG TABLET (FOR DETOX USE ONLY) ONE (16:12)
[2023-09-03] MEDS: MELATONIN 5 MG TABLETS PO SCH (22:13)
[2023-09-03] MEDS: AMOXICILLIN 500 MG CAPSULE (FP) PO SCH (22:13)
[2023-09-03] MEDS: THIAMINE HCL 100 MG TABLET (FP) PO SCH (22:13)
[2023-09-04] MEDS: AMOXICILLIN 500 MG CAPSULE (FP) PO SCH ×3 (05:30→22:26)
[2023-09-04] MEDS: PRENATAL VITAMINS W/ FOLIC ACID TABLET (FP) PO SCH (10:02)
[2023-09-04] MEDS: NICOTINE 21 MG/24 HOURS TOPICAL PATCH TD SCH (10:03)
[2023-09-04 11:47] LABS: HEMOGLOBIN 13.2 GM/dL (11.7-16.9); MCH 26.9 pg (25.7-33.7); MEAN CELL VOLUME 81.6 fl (80-96); PLATELET COUNT 264 10^3/uL (134-434); RDW 13.7 % (11.9-15.9); WHITE BLOOD COUNT 7.9 K/mm3 (4.0-10.0)
[2023-09-04 12:26] LABS: CHLORIDE 107 mmol/L (98-107); POTASSIUM 4.3 mmol/L (3.5-5.1); SODIUM 140 mmol/L (136-145)
[2023-09-04 12:47] LABS: ALBUMIN 3.4 g/dl (3.4-5.0); ANION GAP 8 mmol/L (4-13); BLOOD UREA NITROGEN 7.9 mg/dL (7-18); CALCIUM 8.8 mg/dL (8.5-10.1); CO2 25 mmol/L (21-32); GLUCOSE,RANDOM 90 mg/dL (74-106)
[2023-09-04 12:50] LABS: CREATININE 0.8 mg/dL (0.55-1.3); SGPT/ALT 17 U/L (13-61)
[2023-09-04 12:51] LABS: SGOT/AST 22 U/L (15-37)
[2023-09-04 12:52] LABS: BILIRUBIN,TOTAL 0.3 mg/dL (0.2-1); TOT PROT 6.8 g/dl (6.4-8.2)
[2023-09-04 12:53] LABS: ALK PHOS 95 U/L (45-117)
[2023-09-04] MEDS: THIAMINE HCL 100 MG TABLET (FP) PO SCH (22:26)
[2023-09-04] MEDS: METHOCARBAMOL 500 MG TABLET PO PRN (22:26)
[2023-09-04] MEDS: MELATONIN 5 MG TABLETS PO SCH (22:26)
[2023-09-04] MEDS: TOLNAFTATE 1% CREAM 15 GM TUBE TP SCH (22:28)
[2023-09-05] MEDS: AMOXICILLIN 500 MG CAPSULE (FP) PO SCH ×3 (06:01→22:14)
[2023-09-05] MEDS: PRENATAL VITAMINS W/ FOLIC ACID TABLET (FP) PO SCH (10:00)
[2023-09-05] MEDS: NICOTINE 21 MG/24 HOURS TOPICAL PATCH TD SCH (10:00)
[2023-09-05] MEDS ORDERED: methaDONE HCL 10 MG TABLET (FOR DETOX USE ONLY) PO ONE (10:00)
[2023-09-05] MEDS: TOLNAFTATE 1% CREAM 15 GM TUBE TP SCH ×2 (10:00→22:14)
[2023-09-05] MEDS: METHOCARBAMOL 500 MG TABLET PO PRN (10:01)
[2023-09-05] MEDS: MELATONIN 5 MG TABLETS PO SCH (22:14)
[2023-09-05] MEDS: THIAMINE HCL 100 MG TABLET (FP) PO SCH (22:14)
[2023-09-06] MEDS: AMOXICILLIN 500 MG CAPSULE (FP) PO SCH ×3 (05:53→22:48)
[2023-09-06] MEDS: NICOTINE 21 MG/24 HOURS TOPICAL PATCH TD SCH (09:35)
[2023-09-06] MEDS: TOLNAFTATE 1% CREAM 15 GM TUBE TP SCH ×2 (09:35→22:48)
[2023-09-06] MEDS: PRENATAL VITAMINS W/ FOLIC ACID TABLET (FP) PO SCH (09:35)
[2023-09-06] MEDS: THIAMINE HCL 100 MG TABLET (FP) PO SCH (22:48)
[2023-09-06] MEDS: SUVOREXANT 10 MG TABLET PO PRN (22:50)
[2023-09-07] MEDS: AMOXICILLIN 500 MG CAPSULE (FP) PO SCH ×3 (05:20→22:30)
[2023-09-07] MEDS ORDERED: methaDONE HCL 10 MG TABLET (FOR DETOX USE ONLY) PO ONE (10:00)
[2023-09-07] MEDS: NICOTINE 21 MG/24 HOURS TOPICAL PATCH TD SCH (10:20)
[2023-09-07] MEDS: PRENATAL VITAMINS W/ FOLIC ACID TABLET (FP) PO SCH (10:21)
[2023-09-07] MEDS: TOLNAFTATE 1% CREAM 15 GM TUBE TP SCH ×2 (10:21→22:31)
[2023-09-07] MEDS: SUVOREXANT 10 MG TABLET PO PRN (22:30)
[2023-09-07] MEDS: THIAMINE HCL 100 MG TABLET (FP) PO SCH (22:31)
[2023-09-08] MEDS: AMOXICILLIN 500 MG CAPSULE (FP) PO SCH (05:46)
[2023-09-08 09:17] VITALS: BP 118/65; PULSE 71; RESP 20; TEMP 97.8
[2023-09-08] MEDS: PRENATAL VITAMINS W/ FOLIC ACID TABLET (FP) PO SCH (09:44)
[2023-09-08] MEDS: TOLNAFTATE 1% CREAM 15 GM TUBE TP SCH (09:45)
[2023-09-08] MEDS: NICOTINE 21 MG/24 HOURS TOPICAL PATCH TD SCH (09:45)
== END 2023-09-08 10:06 | disposition other institution (70) | DRG 773 ==
LOC: YASAS 11:55 → Y3N 15:44
PROVIDERS: ADMIT Allergy & Immunology; ATTEND Surgery
PROC: HZ2ZZZZ Detoxification Services for Substance Abuse Treatment (ICD-10-PCS; principal; 2023-09-03)
DX: F11.23 Opioid dependence with withdrawal (principal); F14.20 Cocaine dependence, uncomplicated; F17.210 Nicotine dependence, cigarettes, uncomplicated; F19.282 Other psychoactive substance dependence with psychoactive substance-induced sleep disorder; F41.9 Anxiety disorder, unspecified; F32.A Depression, unspecified; G47.00 Insomnia, unspecified; K04.7 Periapical abscess without sinus; Z86.19 Personal history of other infectious and parasitic diseases; Z56.0 Unemployment, unspecified; Z59.00 Homelessness unspecified
CPT/HCPCS: 36415; 80053; 80307; 85027; 86780; 87635; 87811

== ENCOUNTER 2023-10-08 13:06 | Inpatient (IN) | payer OTHER ==
[2023-10-08 13:55] VITALS: BMI 29.1
[2023-10-08] MEDS ORDERED: NALOXONE HCL (KLOXXADO) 8 MG SPRAY NS PRN (16:05)
[2023-10-08] MEDS ORDERED: MAG HYDROX/AL HYDROX/SIMETH 30 ML UNIT-DOSE CUP PO PRN (16:05)
[2023-10-08] MEDS ORDERED: MAGNESIUM HYDROX 2400MG/30ML ORAL SUSPENSION 30 ML CUP PO PRN (16:05)
[2023-10-08] MEDS ORDERED: NALOXONE HCL 0.4 MG/ML VIAL IM PRN (16:05)
[2023-10-08] MEDS ORDERED: BENZONATATE 200 MG CAPSULE PO PRN (16:05)
[2023-10-08] MEDS ORDERED: IBUPROFEN 400 MG TABLET (FP) PO PRN (16:05)
[2023-10-08] MEDS ORDERED: LOPERAMIDE HCL 2 MG CAPSULE PO PRN (16:05)
[2023-10-08] MEDS ORDERED: NICOTINE POLACRILEX 2 MG GUM BUC PRN (16:05)
[2023-10-08] MEDS ORDERED: ONDANSETRON *ODT* 4 MG TABLET SL PRN (16:05)
[2023-10-08] MEDS ORDERED: BISMUTH SUBSALICYLATE 524 MG/30 ML PO PRN (16:05)
[2023-10-08] MEDS ORDERED: DICYCLOMINE HCL 10 MG CAPSULE PO PRN (16:05)
[2023-10-08] MEDS ORDERED: POLYETHYLENE GLYCOL (HEALTHYLAX) 3350 17 GM PACKET PO PRN (16:05)
[2023-10-08] MEDS ORDERED: ACETAMINOPHEN 325 MG TABLET (FP) PO PRN (16:05)
[2023-10-08] MEDS ORDERED: BENZOCAINE/MENTHOL (CHLORASEPTIC ) LOZENGE MM PRN (16:05)
[2023-10-08] MEDS ORDERED: guaiFENesin 600 MG TABLET.ER (FP) PO PRN (16:05)
[2023-10-08] MEDS: NICOTINE 21 MG/24 HOURS TOPICAL PATCH TD SCH (16:39)
[2023-10-08] MEDS: methaDONE HCL 10 MG TABLET (FOR DETOX USE ONLY) PO ONE (16:39)
[2023-10-08] MEDS: PRENATAL VITAMINS W/ FOLIC ACID TABLET (FP) PO SCH (16:39)
[2023-10-08] MEDS ORDERED: NICOTINE 21 MG/24 HOURS TOPICAL PATCH ONE (16:44)
[2023-10-08] MEDS ORDERED: methaDONE HCL 10 MG TABLET (FOR DETOX USE ONLY) ONE (16:44)
[2023-10-08] MEDS ORDERED: PRENATAL VITAMINS W/ FOLIC ACID TABLET (FP) PO ONE (16:45)
[2023-10-08] MEDS: MELATONIN 5 MG TABLETS PO SCH (21:57)
[2023-10-08] MEDS: IBUPROFEN 600 MG TABLET (FP) PO PRN (21:58)
[2023-10-08] MEDS: THIAMINE HCL 100 MG TABLET (FP) PO SCH (21:58)
[2023-10-08] MEDS: METHOCARBAMOL 500 MG TABLET PO PRN (21:59)
[2023-10-08] MEDS: SULFAMETHOXAZOLE/TRIMETHOPRIM 800MG/160MG D.S. TABLET PO SCH (22:33)
[2023-10-09] MEDS: SULFAMETHOXAZOLE/TRIMETHOPRIM 800MG/160MG D.S. TABLET PO SCH (10:06)
[2023-10-09 15:22] LABS: HEMATOCRIT 42.4 % (35.4-49); HEMOGLOBIN 14.1 GM/dL (11.7-16.9); MCH 27.4 pg (25.7-33.7); MCHC 33.3 g/dl (32.0-35.9); MEAN CELL VOLUME 82.2 fl (80-96); MEAN PLT VOLUME 9.2 fl (7.5-11.1); PLATELET COUNT 372 10^3/uL (134-434); RBC 5.17 M/mm3 (4.00-5.60); RDW 13.6 % (11.9-15.9); WHITE BLOOD COUNT 8.2 K/mm3 (4.0-10.0)
[2023-10-09 15:24] LABS: CHLORIDE 104 mmol/L (98-107); POTASSIUM 4.8 mmol/L (3.5-5.1); SODIUM 139 mmol/L (136-145)
[2023-10-09 15:42] LABS: ALBUMIN 3.7 g/dl (3.4-5.0); ANION GAP 8 mmol/L (4-13); BLOOD UREA NITROGEN 11.4 mg/dL (7-18); CO2 28 mmol/L (21-32); GLUCOSE,RANDOM 81 mg/dL (74-106)
[2023-10-09 15:44] LABS: SGPT/ALT 13 U/L (13-61)
[2023-10-09 15:45] LABS: CREATININE 0.9 mg/dL (0.55-1.3)
[2023-10-09 15:46] LABS: BILIRUBIN,TOTAL 0.4 mg/dL (0.2-1); SGOT/AST 9 U/L (15-37)
[2023-10-09 15:47] LABS: ALK PHOS 110 U/L (45-117); TOT PROT 7.8 g/dl (6.4-8.2)
[2023-10-10] MEDS: methaDONE HCL 10 MG TABLET (FOR DETOX USE ONLY) PO ONE (10:30)
[2023-10-10] MEDS: cloNIDine HCL 0.1 MG TABLET PO PRN (20:23)
[2023-10-11] MEDS: cloNIDine HCL 0.1 MG TABLET PO ONE (17:50)
[2023-10-12] MEDS: methaDONE HCL 10 MG TABLET (FOR DETOX USE ONLY) PO ONE (09:03)
[2023-10-12 09:52] VITALS: BP 109/74; PULSE 98; RESP 16; TEMP 97.3
== END 2023-10-12 10:48 | disposition home or self-care (01) | DRG 773 ==
LOC: YASAS 13:06 → Y6N 16:39
PROVIDERS: ADMIT Allergy & Immunology; ATTEND Surgery
PROC: HZ2ZZZZ Detoxification Services for Substance Abuse Treatment (ICD-10-PCS; principal; 2023-10-08)
DX: F11.23 Opioid dependence with withdrawal (principal); F14.20 Cocaine dependence, uncomplicated; F15.20 Other stimulant dependence, uncomplicated; F17.210 Nicotine dependence, cigarettes, uncomplicated; B18.2 Chronic viral hepatitis C; L02.413 Cutaneous abscess of right upper limb
CPT/HCPCS: 36415; 80053; 80305; 80307; 85027; 86780; 87635; 93005; 93010